=== PATIENT | male | born 1970 | race Two or more races ===

== ENCOUNTER 2018-06-10 23:34 | Emergency (ER) | payer MEDICARE, MEDICAID ==
[~2018-06-10] VITALS: Ht 172.7 cm; Wt 145.1 kg
[2018-06-10 23:49] VITALS: BP 147/99
[2018-06-11 01:00] LABS: Basophils # (auto) 0 uL; Basophils % (auto) 0.5 % (0.0-2.0); Eosinophils # (auto) 0.3 uL; Eosinophils % (auto) 2.9 % (0.0-7.0); Hematocrit 41.1 % (41.0-53.0); Hemoglobin 13.5 g/dL (13.5-17.5); Lymphocytes # (auto) 2.5 uL; Lymphocytes % (auto) 25.7 % (10.0-50.0); Mean Corpuscular Hemoglobin 28.6 pg (28.0-32.0); Mean Corpuscular Hgb Conc. 32.9 g/dL (32.0-36.0); Monocytes # (auto) 0.5 uL; Monocytes % (auto) 5.4 % (0.0-12.0); Neutrophils # (auto) 6.4 uL; Neutrophils % (auto) 65.5 % (37.0-80.0); Nucleated Red Blood Cells % 0.1 %; Platelet Count (auto) 315 10^3/uL (140-450); Red Blood Cells 4.72 10^6/uL (4.5-5.90); Red Cell Distribution Width 14.1 % (11.8-14.3); White Blood Cell 9.7 10^3/uL (4.4-10.8)
[2018-06-11 01:16] LABS: INR 0.98 (0.9-1.15); Partial Thromboplastin Time 27.5 sec (23.78-33.04); Prothrombin Time 10.5 sec (9.27-12.13)
[2018-06-11 01:17] LABS: Alanine Aminotransferase 19 U/L (16-61); Albumin 3.4 g/dL (3.4-5.0); Anion Gap 5 (5-15); Aspartate Aminotransferase 13 U/L (15-37); BUN/Creatinine Ratio 23.4; Blood Urea Nitrogen 18 mg/dL (7-18); Calcium 8.7 mg/dL (8.5-10.1); Carbon Dioxide 25 mmol/L (21-32); Chloride 106 mmol/L (98-107); GFR African American 138 mL/min; GFR Non-African American 114 mL/min; Glucose 175 mg/dL (74-106); Magnesium 2.1 mg/dL (1.6-2.6); Potassium 3.6 mmol/L (3.5-5.1); Sodium 136 mmol/L (136-145)
[2018-06-11 01:27] LABS: Alkaline Phosphatase 100 U/L (45-117); Bilirubin, Total 0.4 mg/dL (0.2-1.0); Total Protein 7.5 g/dL (6.4-8.2)
== END 2018-06-11 02:50 | disposition left against medical advice (07) ==
LOC: ER 23:35
DX: R07.89 Other chest pain (principal); Z53.21 Procedure and treatment not carried out due to patient leaving prior to being seen by health care provider
CPT/HCPCS: 36415; 71045; 80053; 83735; 83880; 84443; 84484; 85025; 85610; 85730; 93005

== ENCOUNTER → 2018-08-07 | Outpatient (CLI) | payer MEDICARE, MEDICAID ==
[2018-08-07 13:00] VITALS: BP 151/100
[2018-08-07 14:20] VITALS: BP 153/108
--- NOTE | 2018-08-07 14:20 | NUR ---
IN TO CLINIC FOR NEW ONSET CHF. REVIEWED LABS AND HISTORY. MORBIDLY OBESE, DIABETIC, WITH DIFFICULTY WITH AMBULATION R/T "PAIN IN FEET AND CRAMPS IN LEGS". CARDIODYNAMICS DONE AND REVIEWED. 6 MWT REQUIREMENTS REVIEWED AND 6MWT INITIATED. PT HAD SHORT AMBULATION TO JUST PAST NURSES STATION AND STATES "I CANT DO IT". PT DID AMBULATE IN BUILDING FROM WAITING AREA TO CHF CLINIC WITHOUT OBVIOUS DISTRESS PREVIOUS TO ATTEMPTED 6MWT. 6MWT DEFERRED FOR NOW. LABS DRAWN AND SENT. Discharge Instructions See e-MAR for any mediations given with this visit. Patient education given on disease process. Patient verbalized understanding. Previous labs reviewed. Patient discharged in stable condition with after care instructions TO HAVE ECHO NOW and follow up appointment FOR 08/08/18. Addendum: 08/08/18 at 0900 by Emma Johnson RN [place] RBS CHECK WAS 179MG/DL TAKEN AT CHF CLINIC 08/07/18.
[2018-08-07 16:01] LABS: Basophils # (auto) 0 uL; Basophils % (auto) 0.4 % (0.0-2.0); Eosinophils # (auto) 0.3 uL; Eosinophils % (auto) 3.7 % (0.0-7.0); Hemoglobin 13.7 g/dL (13.5-17.5); Lymphocytes % (auto) 22.7 % (10.0-50.0); Mean Corpuscular Hemoglobin 29.6 pg (28.0-32.0); Mean Corpuscular Hgb Conc. 34.2 g/dL (32.0-36.0); Mean Corpuscular Volume 86.6 fL (80.0-100.0); Monocytes # (auto) 0.5 uL; Monocytes % (auto) 5.8 % (0.0-12.0); Neutrophils # (auto) 6.1 uL; Neutrophils % (auto) 67.4 % (37.0-80.0); Nucleated Red Blood Cells % 0.3 %; Platelet Count (auto) 279 10^3/uL (140-450); Red Blood Cells 4.62 10^6/uL (4.5-5.90); Red Cell Distribution Width 15.1 % (11.8-14.3)
[2018-08-07 16:07] LABS: Calcium 8.6 mg/dL (8.5-10.1); Magnesium 2.3 mg/dL (1.6-2.6); Potassium 3.8 mmol/L (3.5-5.1)
== END | disposition home or self-care (01) ==
LOC: CHF HDHVI 12:54
PROVIDERS: ATTEND Internal Medicine Cardiovascular Disease
DX: I34.0 Nonrheumatic mitral (valve) insufficiency (principal); I11.0 Hypertensive heart disease with heart failure; I50.23 Acute on chronic systolic (congestive) heart failure; D64.9 Anemia, unspecified; E55.9 Vitamin D deficiency, unspecified; I42.0 Dilated cardiomyopathy; R06.00 Dyspnea, unspecified
CPT/HCPCS: 36415; 80048; 82306; 82962; 83735; 83880; 85025; 93306; 93701; 94618; G0463

== ENCOUNTER 2018-10-10 09:30 | Emergency (ER) | payer MEDICARE, MEDICAID ==
[~2018-10-10] VITALS: Ht 172.7 cm; Wt 145.1 kg
[~2018-10-10 09:30] MED LIST: ATOR40TA52 PO; CARV6.25 PO; FURO40TA4 PO; INSUINJ37 SC; METF-370 PO; METF-371 PO; POTA10TA51 PO; SACU1TAB PO; SPIR25TA8 PO
[2018-10-10] MEDS ORDERED: cloNIDine HCL 0.1 MG TAB PO ONE (09:45)
[2018-10-10 10:35] LABS: Basophils # (auto) 0.1 uL; Basophils % (auto) 0.6 % (0.0-2.0); Eosinophils # (auto) 0.5 uL; Eosinophils % (auto) 5.3 % (0.0-7.0); Hematocrit 38.7 % (41.0-53.0); Hemoglobin 12.9 g/dL (13.5-17.5); Lymphocytes # (auto) 1.6 uL; Mean Corpuscular Hemoglobin 29.3 pg (28.0-32.0); Mean Corpuscular Hgb Conc. 33.4 g/dL (32.0-36.0); Mean Corpuscular Volume 87.8 fL (80.0-100.0); Monocytes # (auto) 0.5 uL; Monocytes % (auto) 6.2 % (0.0-12.0); Neutrophils # (auto) 6.1 uL; Neutrophils % (auto) 69.9 % (37.0-80.0); Platelet Count (auto) 349 10^3/uL (140-450); Red Blood Cells 4.41 10^6/uL (4.5-5.90); Red Cell Distribution Width 13.9 % (11.8-14.3); White Blood Cell 8.7 10^3/uL (4.4-10.8)
[2018-10-10 10:50] LABS: Albumin 3.1 g/dL (3.4-5.0); Calcium 8.8 mg/dL (8.5-10.1); Potassium 4.2 mmol/L (3.5-5.1)
[2018-10-10 10:54] LABS: BUN/Creatinine Ratio 27.7; Bilirubin, Total 0.4 mg/dL (0.2-1.0); Total Protein 7.6 g/dL (6.4-8.2)
[2018-10-10 10:55] LABS: Urine WBC None Seen /hpf (0 - 3)
[2018-10-10 11:31] LABS: Urine Bacteria NONE SEEN /hpf (None Seen); Urine Blood Negative /uL (Negative); Urine Mucus FEW (None Seen); Urine Specific Gravity 1.023 (1.001-1.035)
[2018-10-10 11:50] VITALS: BP 159/99
== END 2018-10-10 12:12 ==
LOC: ER 09:30
DX: E11.65 Type 2 diabetes mellitus with hyperglycemia (principal); J44.9 Chronic obstructive pulmonary disease, unspecified; E78.5 Hyperlipidemia, unspecified; I25.2 Old myocardial infarction; I11.0 Hypertensive heart disease with heart failure; I50.9 Heart failure, unspecified; F17.210 Nicotine dependence, cigarettes, uncomplicated; Z02.89 Encounter for other administrative examinations; Z86.73 Personal history of transient ischemic attack (TIA), and cerebral infarction without residual deficits; Z95.810 Presence of automatic (implantable) cardiac defibrillator; Z79.4 Long term (current) use of insulin; Z79.899 Other long term (current) drug therapy
CPT/HCPCS: 36415; 71046; 80053; 81001; 82962; 84484; 85025; 93005

== ENCOUNTER → 2019-02-04 | Outpatient (CLI) | payer MEDICARE, MEDICAID ==
[2019-02-04 10:02] VITALS: BP 145/98
[2019-02-04 10:18] VITALS: BP 139/95
--- NOTE | 2019-02-04 10:18 | NUR ---
Pre-Op Discharge Summary: See e-MAR for any medications given for this visit. Pre-op orders received and carried out per MD of EKG, LABS and a prescription for chest xrays. Patient given a copy of EKG with instructions to go to [facility] out patient for further follow up care.
[2019-02-04 12:26] LABS: INR < 0.93 (0.9-1.15); Partial Thromboplastin Time 27.9 sec (23.64-32.05)
[2019-02-04 12:29] LABS: Basophils # (auto) 0.1 uL; Basophils % (auto) 0.5 % (0.0-2.0); Eosinophils # (auto) 0.3 uL; Eosinophils % (auto) 3.1 % (0.0-7.0); Hematocrit 44.2 % (41.0-53.0); Hemoglobin 14.9 g/dL (13.5-17.5); Lymphocytes # (auto) 2.1 uL; Lymphocytes % (auto) 22.3 % (10.0-50.0); Mean Corpuscular Hemoglobin 30.2 pg (28.0-32.0); Mean Corpuscular Hgb Conc. 33.7 g/dL (32.0-36.0); Mean Corpuscular Volume 89.4 fL (80.0-100.0); Monocytes # (auto) 0.5 uL; Monocytes % (auto) 5.5 % (0.0-12.0); Neutrophils # (auto) 6.4 uL; Neutrophils % (auto) 68.6 % (37.0-80.0); Nucleated Red Blood Cells % 0.2 %; Platelet Count (auto) 260 10^3/uL (140-450); Red Blood Cells 4.94 10^6/uL (4.5-5.90); White Blood Cell 9.4 10^3/uL (4.4-10.8)
[2019-02-04 14:04] LABS: Calcium 8.7 mg/dL (8.5-10.1); Potassium 3.9 mmol/L (3.5-5.1)
== END | disposition home or self-care (01) ==
LOC: Rad HDHVI 09:25
PROVIDERS: ATTEND Internal Medicine Cardiovascular Disease
DX: Z01.818 Encounter for other preprocedural examination (principal); D64.9 Anemia, unspecified; R79.1 Abnormal coagulation profile; I11.0 Hypertensive heart disease with heart failure; I50.9 Heart failure, unspecified; E11.9 Type 2 diabetes mellitus without complications; R94.31 Abnormal electrocardiogram [ECG] [EKG]
CPT/HCPCS: 36415; 80048; 85025; 85610; 85730; 93005; G0463

== ENCOUNTER 2019-05-10 13:49 | Inpatient (IN) | payer MEDICARE, MEDICAID ==
[~2019-05-10] VITALS: Ht 172.7 cm; Wt 76.6 kg
[2019-05-10 14:45] LABS: Basophils # (auto) 0 uL; Basophils % (auto) 0.5 % (0.0-2.0); Eosinophils # (auto) 0.2 uL; Eosinophils % (auto) 2.4 % (0.0-7.0); Hematocrit 45.9 % (41.0-53.0); Hemoglobin 15.6 g/dL (13.5-17.5); Lymphocytes # (auto) 1.9 uL; Lymphocytes % (auto) 21.4 % (10.0-50.0); Mean Corpuscular Hemoglobin 30.2 pg (28.0-32.0); Mean Corpuscular Hgb Conc. 33.9 g/dL (32.0-36.0); Mean Corpuscular Volume 89.2 fL (80.0-100.0); Monocytes # (auto) 0.5 uL; Monocytes % (auto) 5.8 % (0.0-12.0); Neutrophils # (auto) 6.3 uL; Neutrophils % (auto) 69.9 % (37.0-80.0); Nucleated Red Blood Cells % 0.1 %; Platelet Count (auto) 269 10^3/uL (140-450); Red Blood Cells 5.15 10^6/uL (4.5-5.90); Red Cell Distribution Width 13.9 % (11.8-14.3); White Blood Cell 9.1 10^3/uL (4.4-10.8)
[2019-05-10 14:53] LABS: Alanine Aminotransferase 18 U/L (16-61); Albumin 3.1 g/dL (3.4-5.0); Anion Gap 8 (5-15); Aspartate Aminotransferase 9 U/L (15-37); BUN/Creatinine Ratio 18.2; Blood Urea Nitrogen 20 mg/dL (7-18); Calcium 8.3 mg/dL (8.5-10.1); Carbon Dioxide 24 mmol/L (21-32); Chloride 102 mmol/L (98-107); GFR African American 91 mL/min; GFR Non-African American 75 mL/min; Glucose 381 mg/dL (74-106); Potassium 3.9 mmol/L (3.5-5.1); Sodium 134 mmol/L (136-145)
[2019-05-10] MEDS: SODIUM CHLORIDE 0.9% 1,000 ML IV ONE ×2 (14:55→15:42)
[2019-05-10 14:59] LABS: Alkaline Phosphatase 105 U/L (45-117); Bilirubin, Total 0.6 mg/dL (0.2-1.0); Total Protein 7.4 g/dL (6.4-8.2)
[2019-05-10] MEDS ORDERED: InsuLIN REG 1unit/0.01ml Soln (100units/ml) IV ONE (15:30)
[2019-05-10] MEDS ORDERED: FUROSEMIDE 40 MG/4 ML VIAL IV ONE (15:30)
[2019-05-10] MEDS ORDERED: PIPERACILLIN-TAZOB 3.375GM 100 ML IV ONE (15:45)
[2019-05-10 15:49] LABS: INR 0.97 (0.9-1.15); Partial Thromboplastin Time 27.1 sec (23.64-32.05)
[2019-05-10] MEDS ORDERED: IOHEXOL 300 MG/ML 100ML BOTTLE IJ ONE (15:51)
[2019-05-10 17:38] LABS: Urine WBC None Seen /hpf (0 - 3)
[2019-05-10 18:02] LABS: Urine Bacteria NONE SEEN /hpf (None Seen); Urine Blood Negative /uL (Negative); Urine Specific Gravity 1.035 (1.001-1.035)
[2019-05-10] MEDS ORDERED: PROMETHAZINE HCL 25 MG/ML 1ML IV PRN (19:30)
[2019-05-10] MEDS ORDERED: TEMAZEPAM 15 MG CAP PO PRN (19:30)
[2019-05-10] MEDS ORDERED: LACTULOSE 20Gm/30ML SOLN PO PRN ×2 (19:30)
[2019-05-10] MEDS ORDERED: NITROGLYCERIN 0.4 MG SL TAB SL PRN (19:30)
[2019-05-10] MEDS ORDERED: DEXTROSE (50%) 50ML SYRG IV PRN (19:30)
[2019-05-10] MEDS ORDERED: ALBUTEROL SULF 2.5 MG/0.5ML(0.5%) NEB SOLN NEB PRN (19:30)
[2019-05-10] MEDS ORDERED: traMADol HCL 50 MG TAB PO PRN (19:30)
[2019-05-10] MEDS ORDERED: MORPHINE SULF INJ 2 MG/ML SYRINGE 1ML IV PRN (19:30)
[2019-05-10] MEDS ORDERED: ACETAMINOPHEN 500 MG TAB PO PRN (19:30)
[2019-05-10] MEDS: SPIRONOLACTONE 25 MG TAB PO SCH (20:12)
[2019-05-10] MEDS: DOXYCYCLINE 100MG/250ML 250 ML IV SCH (20:23)
[2019-05-10 20:47] LABS: Alcohol, Urine < 3.0 mg/dL (0-5); Amphetamine Screen, Urine POSITIVE (NEGATIVE); Barbiturate Scree,Urine NEGATIVE (NEGATIVE); Benzodiazephine Screen, Urine NEGATIVE (NEGATIVE); Cannabinoid Screen, Urine NEGATIVE (NEGATIVE); Cocaine Screen, Urine NEGATIVE (NEGATIVE); Opiate Scree,Urine NEGATIVE (NEGATIVE); Phencyclidine Screen, Urine NEGATIVE (NEGATIVE)
[2019-05-10] MEDS: CLINDAMYCIN 600MG IV 50 ML IV SCH (22:00)
[2019-05-10] MEDS: SODIUM CHLOR 0.9% PF (SALINE LOCK) 10ML VIAL/SYR IV SCH (22:00)
[2019-05-10] MEDS: ACCU-CHEK COMFORT CURVE STRIP VI SCH (22:00)
[2019-05-10] MEDS: SACUBITRIL-VALSARTAN 24mg/26mg TAB PO SCH (22:00)
[2019-05-10] MEDS: CARVEDILOL 3.125 MG TAB PO SCH (22:30)
[2019-05-10] MEDS: ATORVASTATIN 20 MG TAB PO SCH (22:31)
[2019-05-10] MEDS: INSULIN LANTUS (GLARGINE) 1 /0.01ml (100units/ml) SC SCH (22:31)
[2019-05-10] MEDS: InsuLIN REG 1unit/0.01ml Soln (100units/ml) SC SCH (22:31)
[2019-05-10] MEDS ORDERED: INFLUENZA QUAD 2019-2020 0.5ml SYRG IM ONE (23:00)
--- NOTE | 2019-05-10 23:00 | NUR ---
OPENING NOTE RECEIVED PATIENT FROM ER. NO REPORT RECEIVED. PATIENT AMBULATED TO BEDSIDE WITH LITTLE DISTRESS. PATIENT SHOWING NO SIGN OF DISTRESS AT THIS TIME, NO SHORTNESS OF BREATH, AND PATIENT DENIES ANY PAIN AT THIS TIME. PATIENT EDUCATED ON PLAN OF CARE FOR THE NIGHT AND PATIENT VERBALIZED UNDERSTANDING. BED LOWERED, CALL LIGHT WITHIN REACH, AND PATIENT WILL BE ROUNDED ON EVERY HOUR AND NEEDED.
[2019-05-10] MEDS: ALBUTEROL SULF 2.5 MG/0.5ML(0.5%) NEB SOLN NEB SCH (23:28)
[2019-05-10] MEDS: IPRATROPIUM BROM 0.5 MG/2.5ML INH SOL NEB SCH (23:28)
[2019-05-11] VITALS (7 sets, daily range): BP systolic 114–148; BP diastolic 58–91
[2019-05-11] MEDS: CLINDAMYCIN 600MG IV 50 ML IV SCH ×3 (05:19→23:15)
[2019-05-11] MEDS: SPIRONOLACTONE 25 MG TAB PO SCH ×2 (05:19→18:02)
[2019-05-11] MEDS: SODIUM CHLOR 0.9% PF (SALINE LOCK) 10ML VIAL/SYR IV SCH ×3 (05:19→22:37)
[2019-05-11] MEDS: ALBUTEROL SULF 2.5 MG/0.5ML(0.5%) NEB SOLN NEB SCH ×3 (06:31→20:04)
[2019-05-11] MEDS: IPRATROPIUM BROM 0.5 MG/2.5ML INH SOL NEB SCH ×3 (06:31→20:04)
[2019-05-11] MEDS: ACCU-CHEK COMFORT CURVE STRIP VI SCH ×4 (06:42→22:37)
[2019-05-11] MEDS: InsuLIN REG 1unit/0.01ml Soln (100units/ml) SC SCH ×4 (06:43→22:38)
[2019-05-11] MEDS: DOXYCYCLINE 100MG/250ML 250 ML IV SCH ×2 (09:39→20:49)
[2019-05-11] MEDS: FUROSEMIDE 40 MG/4 ML VIAL IV SCH (10:03)
[2019-05-11] MEDS: PANTOPRAZOLE 40 MG TAB PO SCH (10:04)
[2019-05-11] MEDS: SACUBITRIL-VALSARTAN 24mg/26mg TAB PO SCH ×2 (10:05→22:35)
[2019-05-11] MEDS: ASPirin 81 mg TAB PO SCH (10:05)
[2019-05-11] MEDS: CARVEDILOL 3.125 MG TAB PO SCH ×2 (10:05→22:37)
[2019-05-11] MEDS: POTASSIUM CHL 20 Meq TABLET PO SCH (10:06)
[2019-05-11] MEDS: ENOXAPARIN SOD 40 MG/0.4 ML SYRINGE SC SCH (10:07)
--- NOTE | 2019-05-11 11:38 | NUR ---
WOUND CARE NOTE: Wound care in to see patient per wound care request regarding " Rt second toe ulceration" that are noted present on admission. Bedside nurse took photograph of patient's wound upon admission for reference. Patient is 49 y/o male with admitting diagnosis of COPD, CHF, Rt Second toe osteomyelitis. Patient with history of anxiety, htn, DM, CHF, High Lipids. Patient is resting in bed in Rm. 298A. Patient is awake,alert and oriented. He's ambulatory and self turn and reposition. His Gerry score is 18. US of BLE and to CT done (see result). Patient seen by Dr. King and he's at [facility] at this time. He ordered no dressing, just ordered leave open to air. No further wound care monitoring needed at this time. Addendum: 05/11/19 at 1705 by Melida Messer RN Amended: Links added.
--- NOTE | 2019-05-11 19:50 | NUR ---
Opening Shift Note Assumed care of patient, awake and alert. No S/S of distress/SOB or pain. Instructed on POC and to call for assist PRN. Bed in lowest locked position, call light within reach, side rails up x2. Will continue to monitor for changes Q1hr and PRN.
[2019-05-11] MEDS: ATORVASTATIN 20 MG TAB PO SCH (22:36)
[2019-05-11] MEDS: INSULIN LANTUS (GLARGINE) 1 /0.01ml (100units/ml) SC SCH (22:39)
[2019-05-12] MEDS: IPRATROPIUM BROM 0.5 MG/2.5ML INH SOL NEB SCH ×4 (00:13→19:37)
[2019-05-12] MEDS: ALBUTEROL SULF 2.5 MG/0.5ML(0.5%) NEB SOLN NEB SCH ×4 (00:13→19:37)
[2019-05-12 05:59] VITALS: BP 107/40
[2019-05-12] MEDS: SODIUM CHLOR 0.9% PF (SALINE LOCK) 10ML VIAL/SYR IV SCH ×3 (06:30→22:37)
[2019-05-12] MEDS: CLINDAMYCIN 600MG IV 50 ML IV SCH ×3 (06:30→22:37)
[2019-05-12] MEDS: ACCU-CHEK COMFORT CURVE STRIP VI SCH ×4 (06:37→22:40)
[2019-05-12] MEDS: InsuLIN REG 1unit/0.01ml Soln (100units/ml) SC SCH ×4 (06:37→22:40)
[2019-05-12] MEDS: SPIRONOLACTONE 25 MG TAB PO SCH ×2 (06:38→17:35)
[2019-05-12] MEDS: DOXYCYCLINE 100MG/250ML 250 ML IV SCH ×2 (08:55→20:14)
[2019-05-12] MEDS: ASPirin 81 mg TAB PO SCH (11:18)
[2019-05-12] MEDS: SACUBITRIL-VALSARTAN 24mg/26mg TAB PO SCH ×2 (11:18→22:39)
[2019-05-12] MEDS: POTASSIUM CHL 20 Meq TABLET PO SCH (11:18)
[2019-05-12] MEDS: CARVEDILOL 3.125 MG TAB PO SCH ×2 (11:19→22:38)
[2019-05-12] MEDS: HYDROcodone-ACET 5/325MG TAB PO PRN ×2 (11:20→20:13)
[2019-05-12] MEDS: FUROSEMIDE 40 MG/4 ML VIAL IV SCH (11:20)
[2019-05-12] MEDS: ENOXAPARIN SOD 40 MG/0.4 ML SYRINGE SC SCH (11:20)
[2019-05-12] MEDS: PANTOPRAZOLE 40 MG TAB PO SCH (11:21)
[2019-05-12 13:00] VITALS: BP 105/58
--- NOTE | 2019-05-12 19:30 | NUR ---
Opening Shift Note Assumed care of patient, awake and alert. No S/S of distress noted, patient reports pain 04/11, see eMAR. Instructed on POC and to call for assist PRN. Bed in lowest locked position, call light within reach, side rails up x2. Will continue to monitor for changes Q1hr and PRN. Signed: 05/13/19 at 0028 by JAVED LOYOLA <Co-Signature Required> Co-Signed: 05/13/19 at 0028 by HUBERT ROBERSON OCA, RN
[2019-05-12 22:00] VITALS: BP 117/74
[2019-05-12] MEDS: ATORVASTATIN 20 MG TAB PO SCH (22:39)
[2019-05-12] MEDS: INSULIN LANTUS (GLARGINE) 1 /0.01ml (100units/ml) SC SCH (22:40)
[2019-05-13] MEDS: ALBUTEROL SULF 2.5 MG/0.5ML(0.5%) NEB SOLN NEB SCH ×4 (00:24→19:35)
[2019-05-13] MEDS: IPRATROPIUM BROM 0.5 MG/2.5ML INH SOL NEB SCH ×4 (00:24→19:35)
[2019-05-13 05:51] VITALS: BP 124/58
[2019-05-13] MEDS: SPIRONOLACTONE 25 MG TAB PO SCH ×2 (06:02→16:37)
[2019-05-13] MEDS: HYDROcodone-ACET 5/325MG TAB PO PRN ×3 (06:03→22:39)
[2019-05-13] MEDS: CLINDAMYCIN 600MG IV 50 ML IV SCH (06:04)
[2019-05-13] MEDS: SODIUM CHLOR 0.9% PF (SALINE LOCK) 10ML VIAL/SYR IV SCH ×3 (06:11→22:16)
[2019-05-13] MEDS: ACCU-CHEK COMFORT CURVE STRIP VI SCH ×4 (06:42→22:20)
[2019-05-13] MEDS: InsuLIN REG 1unit/0.01ml Soln (100units/ml) SC SCH ×4 (06:42→22:19)
--- NOTE | 2019-05-13 08:00 | NUR ---
Morning note patient resting in bed with even and unlabored respirations, no distress noted. Instructed patient on POC, fall precautions and to call for assistance as needed. Patient verbalized understanding. Fall precautions in place with bed in lowest locked position with call light within reach. Will continue to monitor q1hr & PRN.
--- NOTE | 2019-05-13 08:26 | NUR ---
Patient off unit to bone scan per MD order via wheelchair. Respirations even and unlabored, no distress noted.
[2019-05-13 08:45] VITALS: BP 92/54
[2019-05-13] MEDS: ENOXAPARIN SOD 40 MG/0.4 ML SYRINGE SC SCH (10:19)
[2019-05-13] MEDS: ASPirin 81 mg TAB PO SCH (10:20)
[2019-05-13] MEDS: PANTOPRAZOLE 40 MG TAB PO SCH (10:20)
[2019-05-13] MEDS: POTASSIUM CHL 20 Meq TABLET PO SCH (10:20)
[2019-05-13] MEDS: CARVEDILOL 3.125 MG TAB PO SCH ×2 (10:24→22:18)
--- NOTE | 2019-05-13 10:25 | NUR ---
IV discontinued after patient returned to unit Patient has c/o IV is tender to tough. IV site has mild redness noted. IV discontinued with clean technique, catheter intact. Dressing applied. Patient tolerated well, no trauma to site.
--- NOTE | 2019-05-13 10:30 | NUR ---
Attempted IV access Access not achieved. Patient tolerated well, no trauma to site.
[2019-05-13] MEDS: SACUBITRIL-VALSARTAN 24mg/26mg TAB PO SCH ×2 (10:33→22:18)
--- NOTE | 2019-05-13 10:43 | NUR ---
Patient off unit to second part of bone scan per MD order via wheelchair. Respirations even and unlabored, no distress noted.
[2019-05-13] MEDS ORDERED: VANCOMYCIN PER PHARMACY 0 MG IV SCH (10:45)
--- NOTE | 2019-05-13 11:02 | NUR ---
Patient returned to room via wheelchair respirations even and unlabored, no distress noted.
[2019-05-13 11:31] LABS: Basophils # (auto) 0.1 uL; Basophils % (auto) 0.7 % (0.0-2.0); Eosinophils # (auto) 0.4 uL; Hematocrit 48.7 % (41.0-53.0); Hemoglobin 16.4 g/dL (13.5-17.5); Lymphocytes # (auto) 2.4 uL; Lymphocytes % (auto) 24.4 % (10.0-50.0); Mean Corpuscular Hemoglobin 29.9 pg (28.0-32.0); Mean Corpuscular Hgb Conc. 33.7 g/dL (32.0-36.0); Mean Corpuscular Volume 88.8 fL (80.0-100.0); Monocytes # (auto) 0.6 uL; Monocytes % (auto) 6.4 % (0.0-12.0); Neutrophils # (auto) 6.3 uL; Neutrophils % (auto) 64.5 % (37.0-80.0); Nucleated Red Blood Cells % 0.2 %; Platelet Count (auto) 289 10^3/uL (140-450); Red Blood Cells 5.48 10^6/uL (4.5-5.90); Red Cell Distribution Width 13.7 % (11.8-14.3); White Blood Cell 9.8 10^3/uL (4.4-10.8)
[2019-05-13 11:57] LABS: Calcium 8.6 mg/dL (8.5-10.1); Potassium 4.6 mmol/L (3.5-5.1)
[2019-05-13] MEDS ORDERED: PIPERACILLIN-TAZO 4.5GM 100 ML IV SCH (12:00)
[2019-05-13] MEDS ORDERED: VANCOMYCIN 1,250 MG in D5W 5% 250 ML IV ONE (12:00)
[2019-05-13] MEDS: FUROSEMIDE 40 MG/4 ML VIAL IV SCH (12:05)
[2019-05-13 14:11] VITALS: BP 127/71
--- NOTE | 2019-05-13 14:28 | NUR ---
Patient notified this RN that he took a shower Patient stated "I just had to take a shower. I'm sorry. I held my arm out of the shower curtain and I took that box off." Educated patient on fall and safety precautions and the need to obtain an order from the MD prior to taking a shower. Patient verbalized understanding. Patient stated "I won't do it again." Respirations even and unlabored respirations, no distress noted.
--- NOTE | 2019-05-13 15:49 | NUR ---
Received Social Service consult for pt as he is homeless. Pt is alert and oriented. His fiance is with him and he states if she cannot go with him he will not go. The pt states that they were late in paying their rent and were evicted. They do not have any relative that they can go and stay with temporarily. Pt states they have been staying in [facility]. The have provided them with clothing, food Although they get food stamps. The are also give transportation to their physicians. They did have a care but it broke down and they do not have the finances to fix it. The pt does not have an income. The finance states she is going to apply for SSI as she has epilepsy. However none of this has been done. The pt states they have tried the [facility] but they violated the rules and were asked to leave. Their belongings are in storage are this time. The pt states they will return back to [facility] on discharge.
[2019-05-13 16:48] VITALS: BP 127/69
[2019-05-13] MEDS: PIPERACILLIN-TAZO 4.5GM 100 ML IV SCH (17:10)
--- NOTE | 2019-05-13 18:46 | NUR ---
Closing note patient resting in bed with even and unlabored respirations, no distress noted. Fall precautions in place with call light within reach.
--- NOTE | 2019-05-13 19:30 | NUR ---
Care endorsed to DONITA Carrion.
[2019-05-13] MEDS: VANCOMYCIN 1,500 MG in D5W 5% 250 ML IV SCH (22:17)
[2019-05-13] MEDS: ATORVASTATIN 20 MG TAB PO SCH (22:18)
[2019-05-13] MEDS: INSULIN LANTUS (GLARGINE) 1 /0.01ml (100units/ml) SC SCH (22:19)
[2019-05-13 23:13] VITALS: BP 149/61
[2019-05-14] MEDS: IPRATROPIUM BROM 0.5 MG/2.5ML INH SOL NEB SCH ×4 (00:31→19:00)
[2019-05-14] MEDS: ALBUTEROL SULF 2.5 MG/0.5ML(0.5%) NEB SOLN NEB SCH ×4 (00:31→19:00)
--- NOTE | 2019-05-14 00:31 | NUR ---
Respiratory note: PT IS REFUSING SCHED MED NEB AT THIS TIME. TRIED TO WAKE UP PT FOR TX, BUT PATIENT SAID HE DOES NOT WANT TO TAKE IT AND WILL TAKE IT IN THE MORNING. WILL CONTINUE TO MONITOR.
[2019-05-14] MEDS: PIPERACILLIN-TAZO 4.5GM 100 ML IV SCH ×4 (00:36→17:38)
[2019-05-14 04:03] VITALS: BP 149/61
[2019-05-14 05:19] VITALS: BP 94/47
[2019-05-14] MEDS: SODIUM CHLOR 0.9% PF (SALINE LOCK) 10ML VIAL/SYR IV SCH ×3 (06:06→21:52)
[2019-05-14] MEDS: INSULIN LISPRO (HUMAN) 100 UNITS/ML ML SC SCH ×3 (06:07→17:36)
[2019-05-14] MEDS: SPIRONOLACTONE 25 MG TAB PO SCH ×2 (06:07→17:38)
[2019-05-14] MEDS: ACCU-CHEK COMFORT CURVE STRIP VI SCH ×4 (06:08→21:55)
[2019-05-14] MEDS: InsuLIN REG 1unit/0.01ml Soln (100units/ml) SC SCH ×4 (06:08→21:54)
--- NOTE | 2019-05-14 08:00 | NUR ---
Morning note patient resting in bed with even and unlabored respirations, no distress noted. Instructed patient on POC, fall precautions and to call for assistance. Patient verbalized understanding. Fall precautions in place with bed in lowest locked position and call light within reach. Will continue to monitor q1hr & PRN.
[2019-05-14 09:00] VITALS: BP 124/74
--- NOTE | 2019-05-14 09:06 | NUR ---
RE: podiatry Spoke with Dr. King. Orders received and read back to verify.
[2019-05-14] MEDS: ENOXAPARIN SOD 40 MG/0.4 ML SYRINGE SC SCH (09:40)
[2019-05-14] MEDS: ASPirin 81 mg TAB PO SCH (09:41)
[2019-05-14] MEDS: SACUBITRIL-VALSARTAN 24mg/26mg TAB PO SCH ×2 (09:41→21:53)
[2019-05-14] MEDS: PANTOPRAZOLE 40 MG TAB PO SCH (09:41)
[2019-05-14] MEDS: CARVEDILOL 3.125 MG TAB PO SCH ×2 (09:41→21:53)
[2019-05-14] MEDS: VANCOMYCIN 1,500 MG in D5W 5% 250 ML IV SCH ×2 (09:42→21:52)
[2019-05-14 13:00] VITALS: BP 131/73
[2019-05-14] MEDS: HYDROcodone-ACET 5/325MG TAB PO PRN ×2 (13:32→19:52)
--- NOTE | 2019-05-14 14:08 | NUR ---
Midline Placement: Patient educated on need for midline placement. All risks and benefits explained and all questions and concerns addresses prior to procedure. 18g/10cm midline inserted via left brachial vein using Ultrasound. Sterile technique utilized. Blood return obtained from lumen and flushed easily with NS using proper technique. Midline secured with saline lock; biodisc and occlusive dressing applied. Primary RN notified. Midline lot #[id number]
--- NOTE | 2019-05-14 14:45 | NUR ---
Nutrition Assessment Notes please see attached link for complete assessment Est. Needs ABW 107 [id number] kcal (17-20 kcal/kgBW), 107-117 gms pro (1.0-1.1 gms/kgBW). Will continue to monitor pertinent labs and reassess nutrient need prn Addendum: 05/14/19 at [address] Amended: Links added.
--- NOTE | 2019-05-14 14:49 | NUR ---
assessment Patient is a 49 year old male who is alert and oriented. Patients cognitive abilities are intact. Prior to admission patient was homeless and functioned independently. Patient informed me he is able to care for his own ADLs. Per patient he has been homeless since 05/02/19 when he states he was 35.00 short on his rent and asked to leave. Patient informed me he gets 955.00 per month. Patient does not want to use 750.00 for room and board. Patient informed me he was paying 267.00 and thats what he wants to pay again. I informed patient I cannot get his a room and board for 267.00 per month. Patient also informed me he will not go to room and board without his fiance. Marcela dowling fiance is at bedside. Per Marcela she has no income and cannot help patient pay for housing. I informed patient he may need SNF for IV ABX. Patient has agreed. I informed patient he has a right to speak to a vp digital marketing social media and crm regarding all care. I informed patient he has a right to participate in any and all discharge planning. Patient does not have a POA and advanced directive. I have offered patient information on POA and advanced directives. I informed the patient the advantages and benefits of having an Advanced Directive. Patient verbalized understanding and agreed to discharge plan. Addendum: 05/14/19 at 1456 by Chula CONRAD Amended: Links added.
--- NOTE | 2019-05-14 16:42 | NUR ---
Regarding pt's and social work supervisor's conversation a homeless form was signed and placed in the chart.
[2019-05-14 17:00] VITALS: BP 109/68
--- NOTE | 2019-05-14 19:26 | NUR ---
Closing note patient resting in bed with even and unlabored respirations, no distress noted. Fall precautions in place with call light within reach.
--- NOTE | 2019-05-14 19:28 | NUR ---
Care endorsed to DONITA Carrion.
[2019-05-14] MEDS: ATORVASTATIN 20 MG TAB PO SCH (21:53)
[2019-05-14] MEDS: INSULIN LANTUS (GLARGINE) 1 /0.01ml (100units/ml) SC SCH (21:54)
[2019-05-14 22:00] VITALS: BP 94/62
[2019-05-15] MEDS: PIPERACILLIN-TAZO 4.5GM 100 ML IV SCH ×4 (00:09→18:38)
[2019-05-15] MEDS: IPRATROPIUM BROM 0.5 MG/2.5ML INH SOL NEB SCH ×4 (00:47→19:05)
[2019-05-15] MEDS: ALBUTEROL SULF 2.5 MG/0.5ML(0.5%) NEB SOLN NEB SCH ×4 (00:47→19:05)
[2019-05-15 05:21] LABS: Basophils # (auto) 0.1 uL; Basophils % (auto) 0.7 % (0.0-2.0); Eosinophils # (auto) 0.3 uL; Eosinophils % (auto) 3.6 % (0.0-7.0); Hemoglobin 14.8 g/dL (13.5-17.5); Lymphocytes # (auto) 2.1 uL; Lymphocytes % (auto) 25.3 % (10.0-50.0); Mean Corpuscular Hemoglobin 30.3 pg (28.0-32.0); Mean Corpuscular Hgb Conc. 33.8 g/dL (32.0-36.0); Mean Corpuscular Volume 89.6 fL (80.0-100.0); Monocytes # (auto) 0.6 uL; Monocytes % (auto) 7.2 % (0.0-12.0); Neutrophils # (auto) 5.2 uL; Neutrophils % (auto) 63.2 % (37.0-80.0); Platelet Count (auto) 243 10^3/uL (140-450); Red Blood Cells 4.91 10^6/uL (4.5-5.90); Red Cell Distribution Width 13.7 % (11.8-14.3); White Blood Cell 8.3 10^3/uL (4.4-10.8)
[2019-05-15 05:39] LABS: INR 1.02 (0.9-1.15)
[2019-05-15 05:46] LABS: BUN/Creatinine Ratio 24.3; Calcium 8.2 mg/dL (8.5-10.1); Magnesium 2.3 mg/dL (1.6-2.6); Potassium 4.5 mmol/L (3.5-5.1)
[2019-05-15 06:02] VITALS: BP 106/72
[2019-05-15] MEDS: SODIUM CHLOR 0.9% PF (SALINE LOCK) 10ML VIAL/SYR IV SCH ×2 (06:35→21:51)
[2019-05-15] MEDS: SPIRONOLACTONE 25 MG TAB PO SCH ×2 (06:36→17:23)
[2019-05-15] MEDS: INSULIN LISPRO (HUMAN) 100 UNITS/ML ML SC SCH ×3 (06:36→17:22)
[2019-05-15] MEDS: InsuLIN REG 1unit/0.01ml Soln (100units/ml) SC SCH ×4 (06:36→22:36)
[2019-05-15] MEDS: ACCU-CHEK COMFORT CURVE STRIP VI SCH ×4 (06:37→22:24)
--- NOTE | 2019-05-15 07:30 | NUR ---
Opening Shift Note Assumed care of patient, awake and alert. No S/S of distress/SOB or pain. Bed is in lowest position with 2x side rails up for safety. Call light is within reach. Instructed on POC and to call for assist PRN, will continue to monitor for changes Q1hr and PRN.
[2019-05-15 08:00] VITALS: BP 101/65
[2019-05-15 08:26] VITALS: BP 101/65
[2019-05-15] MEDS: VANCOMYCIN 1,500 MG in D5W 5% 250 ML IV SCH (09:46)
[2019-05-15] MEDS: ASPirin 81 mg TAB PO SCH (09:47)
[2019-05-15] MEDS: PANTOPRAZOLE 40 MG TAB PO SCH (09:47)
[2019-05-15] MEDS: CARVEDILOL 3.125 MG TAB PO SCH ×2 (09:47→22:37)
[2019-05-15] MEDS: ATORVASTATIN 20 MG TAB PO SCH (09:51)
--- NOTE | 2019-05-15 09:52 | NUR ---
D/C Planning Per consult for SNF placement for IV abx vanco per pharm for 6 week zosyn 4.5gm IV q8hrs for 6 week and wound care. Pt brendan Doty was at bedside when information and choice letter was given to patient at bedside. Pt had no preference of providers. Pt verbalize understanding. Contact and faxed medical records to [facility] and [facility]. Per Leslye from [facility] patient has been accepted to room [address] MD Dr. Castanon. Informed Pt at bedside with accepting facility. Informed DONITA Bills. Will arrange transportation upon discharge day. Addendum: 05/15/19 at 1000 by BLADIMIR CONRAD Amended: Links added. Addendum: 05/15/19 at 1031 by BLADIMIR CONRAD correction Informed DONITA Keller
[2019-05-15] MEDS: ENOXAPARIN SOD 40 MG/0.4 ML SYRINGE SC SCH (09:54)
[2019-05-15] MEDS: SACUBITRIL-VALSARTAN 24mg/26mg TAB PO SCH ×2 (10:04→22:36)
[2019-05-15 12:37] VITALS: BP 109/66
--- NOTE | 2019-05-15 13:30 | NUR ---
Pre op Patient taken to pre-op via bed for scheduled procedure.
[2019-05-15] MEDS ORDERED: ceFAZolin 1GM/50ML 50 ML IV ONE (13:34)
[2019-05-15] MEDS ORDERED: ceFAZolin 1GM VL ONE (14:34)
[2019-05-15] MEDS ORDERED: ROPIVACAINE 0.5% (5MG/ML) 20ML AMPULE IJ ONE (14:34)
[2019-05-15] MEDS ORDERED: fentaNYL CITRATE 100 MCG/2 ML VL ONE (14:56)
[2019-05-15] MEDS ORDERED: MIDAZOLAM HCL 1MG/1ML-2 ML VIAL ONE (14:56)
[2019-05-15] MEDS ORDERED: MIDAZOLAM HCL 1MG/1ML-2 ML VIAL IV PRN (15:00)
[2019-05-15] MEDS ORDERED: ePHEDrine SULFATE 50 MG/ML AMP IV PRN (15:00)
[2019-05-15] MEDS ORDERED: MORPHINE SULFATE 4 MG/ML SYR/VIAL IV PRN (15:00)
[2019-05-15] MEDS ORDERED: LABETALOL HCL 5 MG/ML 4ML SYRINGE IV PRN (15:00)
[2019-05-15] MEDS ORDERED: ONDANSETRON HCL 4 MG/2 ML VIAL IV PRN (15:00)
[2019-05-15] MEDS ORDERED: ACCU-CHEK COMFORT CURVE STRIP VI ONE (15:00)
[2019-05-15] MEDS ORDERED: PROPOFOL 10 MG/ML 20 ML IV ONE (15:11)
--- NOTE | 2019-05-15 16:00 | NUR ---
PT BACK FROM OR, RT FOOT DRESSING CLEAN AND DRY, CALL LIGHT WITHIN REACH, FAMILY AT BED SIDE, NO PAIN REPORTED AT THIS TIME. V/S 99/66, HR 83, RR 18, WILL CONTINUE TO MONITOR PT.
[2019-05-15 16:58] VITALS: BP 99/66
[2019-05-15] MEDS: VANCOMYCIN 1,250 MG in D5W 5% 250 ML IV SCH (18:39)
--- NOTE | 2019-05-15 19:30 | NUR ---
Opening Shift Note Assumed care of patient, awake and alert. No S/S of distress/SOB. Instructed on POC and to call for assist PRN, will continue to monitor for changes Q1hr and PRN.
[2019-05-15 21:00] VITALS: BP 115/67
[2019-05-15] MEDS: INSULIN LANTUS (GLARGINE) 1 /0.01ml (100units/ml) SC SCH (22:36)
[2019-05-15] MEDS: HYDROcodone-ACET 5/325MG TAB PO PRN (22:37)
--- NOTE | 2019-05-16 00:13 | NUR ---
Respiratory note: PT REFUSED SCHED MED NEB. PT STATES HE IS TIRED AND WANTS TO REST. PT SHOWS NO S/S OF SOB OR DISTRESS. WILL CONTINUE TO MONITOR.
[2019-05-16] MEDS: PIPERACILLIN-TAZO 4.5GM 100 ML IV SCH ×4 (00:24→17:33)
[2019-05-16] MEDS: VANCOMYCIN 1,250 MG in D5W 5% 250 ML IV SCH ×3 (04:29→18:20)
[2019-05-16 04:30] VITALS: BP 102/62
[2019-05-16] MEDS: HYDROcodone-ACET 5/325MG TAB PO PRN ×3 (04:30→17:31)
[2019-05-16] MEDS: SODIUM CHLOR 0.9% PF (SALINE LOCK) 10ML VIAL/SYR IV SCH ×3 (06:19→22:29)
[2019-05-16] MEDS: ACCU-CHEK COMFORT CURVE STRIP VI SCH ×4 (06:19→22:17)
[2019-05-16] MEDS: SPIRONOLACTONE 25 MG TAB PO SCH ×2 (06:19→18:23)
[2019-05-16] MEDS: INSULIN LISPRO (HUMAN) 100 UNITS/ML ML SC SCH ×3 (06:38→17:32)
[2019-05-16] MEDS: InsuLIN REG 1unit/0.01ml Soln (100units/ml) SC SCH ×4 (06:39→22:29)
[2019-05-16] MEDS: ALBUTEROL SULF 2.5 MG/0.5ML(0.5%) NEB SOLN NEB SCH ×5 (06:55→23:51)
[2019-05-16] MEDS: IPRATROPIUM BROM 0.5 MG/2.5ML INH SOL NEB SCH ×5 (06:55→23:50)
[2019-05-16 07:45] LABS: BUN/Creatinine Ratio 21.1; Calcium 8.1 mg/dL (8.5-10.1); Potassium 4.7 mmol/L (3.5-5.1)
[2019-05-16 08:39] VITALS: BP 93/53
--- NOTE | 2019-05-16 08:51 | NUR ---
Opening Shift Note Assumed care of patient, awake and alert. No S/S of distress/SOB or pain. Skin is warm and dry to touch, no s/s of hyperglycemia or hypoglycemia noted. Instructed on POC and to call for assist PRN, will continue to monitor for changes Q1hr and PRN.
[2019-05-16] MEDS: ENOXAPARIN SOD 40 MG/0.4 ML SYRINGE SC SCH (09:42)
[2019-05-16] MEDS: PANTOPRAZOLE 40 MG TAB PO SCH (09:43)
[2019-05-16] MEDS: SACUBITRIL-VALSARTAN 24mg/26mg TAB PO SCH ×2 (09:43→22:27)
[2019-05-16] MEDS: ASPirin 81 mg TAB PO SCH (09:43)
[2019-05-16] MEDS: CARVEDILOL 3.125 MG TAB PO SCH ×2 (09:43→22:28)
[2019-05-16 12:34] VITALS: BP 95/49
[2019-05-16 16:38] VITALS: BP 117/70
--- NOTE | 2019-05-16 19:30 | NUR ---
Opening Shift Note Assumed care of patient, awake and alert. No S/S of distress/SOB. Family at bedside. Instructed on POC and to call for assist PRN, will continue to monitor for changes Q1hr and PRN.
[2019-05-16 22:26] VITALS: BP 115/80
[2019-05-16] MEDS: ATORVASTATIN 20 MG TAB PO SCH (22:28)
[2019-05-16] MEDS: INSULIN LANTUS (GLARGINE) 1 /0.01ml (100units/ml) SC SCH (22:29)
[2019-05-17] MEDS: PIPERACILLIN-TAZO 4.5GM 100 ML IV SCH ×4 (00:09→18:24)
[2019-05-17 00:20] VITALS: BP 109/79
[2019-05-17] MEDS: VANCOMYCIN 1,250 MG in D5W 5% 250 ML IV SCH ×3 (02:49→17:48)
[2019-05-17 05:30] VITALS: BP 143/70
[2019-05-17] MEDS: SODIUM CHLOR 0.9% PF (SALINE LOCK) 10ML VIAL/SYR IV SCH ×3 (05:48→22:00)
[2019-05-17] MEDS: ACCU-CHEK COMFORT CURVE STRIP VI SCH ×4 (06:15→22:00)
[2019-05-17] MEDS: InsuLIN REG 1unit/0.01ml Soln (100units/ml) SC SCH ×4 (06:26→22:00)
[2019-05-17] MEDS: INSULIN LISPRO (HUMAN) 100 UNITS/ML ML SC SCH ×3 (06:26→17:47)
[2019-05-17] MEDS: SPIRONOLACTONE 25 MG TAB PO SCH ×2 (06:26→18:24)
[2019-05-17] MEDS: HYDROcodone-ACET 5/325MG TAB PO PRN ×4 (06:27→18:24)
[2019-05-17] MEDS: IPRATROPIUM BROM 0.5 MG/2.5ML INH SOL NEB SCH ×3 (07:49→18:58)
[2019-05-17] MEDS: ALBUTEROL SULF 2.5 MG/0.5ML(0.5%) NEB SOLN NEB SCH ×3 (07:49→18:58)
--- NOTE | 2019-05-17 08:28 | NUR ---
Dr. Sepulveda paged regarding discharge planning to SNF, awaiting to call back.
--- NOTE | 2019-05-17 09:01 | NUR ---
Opening Shift Note Assumed care of patient, awake and alert. No S/S of distress/SOB or pain. Instructed on POC and to call for assist PRN, will continue to monitor for changes Q1hr and PRN.
[2019-05-17] MEDS: ENOXAPARIN SOD 40 MG/0.4 ML SYRINGE SC SCH (09:55)
[2019-05-17] MEDS: PANTOPRAZOLE 40 MG TAB PO SCH (09:55)
[2019-05-17] MEDS: CARVEDILOL 3.125 MG TAB PO SCH ×2 (09:55→22:00)
[2019-05-17] MEDS: SACUBITRIL-VALSARTAN 24mg/26mg TAB PO SCH ×2 (09:55→22:00)
[2019-05-17] MEDS: ASPirin 81 mg TAB PO SCH (09:55)
--- NOTE | 2019-05-17 12:48 | NUR ---
Nutrition Follow-up Notes Wt.: 148.2 kg Pt`s sleeping with no family by bedside. per records pt s/p sx for amputation on toe on 05/15. pt with no distress noted per nursing. pt is currently on CCHO 60 gm/meal diet with adequate PO of 100% x 4 per RN doc Est. Needs ABW 107 [id number] kcal (17-20 kcal/kgBW), 107-117 gms pro (1.0-1.1 gms/kgBW). Will continue to monitor pertinent labs and reassess nutrient need prn Labs: GLU 216 H, BUN 20 H, CA 8.1 L. Skin: Gerry scale 22, low risk, s/p amputation toe per arch support technician. refer to C notes for details GI: Pt had 1 BM today per arch support technician. PES: Decreased nutrient needs r/t adiposity aeb pt`s high BMI of 48.8 kgm2 Altered nutrition related lab values r/t current/chronic medical condition aeb lev BUN A1C, hyperglycemia, mild hypoalb Will continue to monitor PO intake, skin status, pertinent labs and weight trend. F/u in 3 to 5 days. Rec.: 1.) refer to CDE on DC. 2) consider MVI/C bid. 3) contiue current plan of care
[2019-05-17 13:00] VITALS: BP 126/86
--- NOTE | 2019-05-17 15:09 | NUR ---
D/C digital color press operator Pinya advised me Pt is refusing to go to [place]. Spoke to Pt regarding placement and he said he wanted me to try [facility] again. Contact [facility] PH:) Fax:( [phone]) re-faxed medical records. Per Katlyn from [facility] she has a male available bed and Pt has been accepted to room [address] MD Dr. Castanon. Contact [facility] transportation Ph:( [phone]) spoke to Candice. Advised Candice to set up transport on will call and RN will call once Pt has discharge order. Informed DONITA Rios.
[2019-05-17 17:36] VITALS: BP 158/91
--- NOTE | 2019-05-17 17:45 | NUR ---
Contact [employer] transportation Ph:) vegetable picker time at 1130 PM , Spoke Enmanuel
--- NOTE | 2019-05-17 17:49 | NUR ---
Contact [facility] PH:( [phone]) report given Tatianna .
--- NOTE | 2019-05-17 18:00 | NUR ---
Bus pass give to his GF (Marcela).
--- NOTE | 2019-05-17 18:06 | NUR ---
Midline got infiltrated , swelling. Dr. perez notified , received with new orders as follow :Hold d/c, u/s to right upper arm.
--- NOTE | 2019-05-17 18:27 | NUR ---
Called Heather Jimenez due to D/C is being held.
--- NOTE | 2019-05-17 19:50 | NUR ---
Opening Shift Note Assumed care of patient, awake, AAOx4. No S/S of distress/SOB or pain. On room air and ambulatory. No IV access, charge master analyst aware. Will obtain IV access. Bed in lowest locked position, side rails up x2, call light within reach. Instructed on POC and to call for assist PRN, will continue to monitor for changes Q1hr and PRN.
[2019-05-17 22:00] VITALS: BP 150/93
[2019-05-17] MEDS: ATORVASTATIN 20 MG TAB PO SCH (22:00)
[2019-05-17] MEDS: INSULIN LANTUS (GLARGINE) 1 /0.01ml (100units/ml) SC SCH (22:00)
--- NOTE | 2019-05-18 | NUR ---
IV insertion IV access obtained, via clean sterile technique by inserting 20 gauge catheter at RT FA after 1 attempt. IV secured properly. No trauma to site. Patient tolerated procedure well.
[2019-05-18] MEDS: IPRATROPIUM BROM 0.5 MG/2.5ML INH SOL NEB SCH ×4 (00:02→19:52)
[2019-05-18] MEDS: ALBUTEROL SULF 2.5 MG/0.5ML(0.5%) NEB SOLN NEB SCH ×4 (00:02→19:51)
--- NOTE | 2019-05-18 00:05 | NUR ---
Received new orders Dafne Fajardo MD regarding positive result of Lt arm upper extremity venous ultrasound of non occlusive thrombus in Lt axillary vein. Received call back and received orders for Eliquis 10 mg PO BID for 3 days, then 5 mg PO BID for 6 weeks. RBO and verified. Will carry out orders and continue care.
[2019-05-18] MEDS: APIXABAN 5 MG TAB PO SCH ×2 (01:00→09:34)
[2019-05-18] MEDS: VANCOMYCIN 1,250 MG in D5W 5% 250 ML IV SCH ×3 (02:00→18:11)
[2019-05-18] MEDS: SPIRONOLACTONE 25 MG TAB PO SCH ×2 (06:00→18:11)
[2019-05-18] MEDS: PIPERACILLIN-TAZO 4.5GM 100 ML IV SCH ×4 (06:00→18:05)
[2019-05-18] MEDS: SODIUM CHLOR 0.9% PF (SALINE LOCK) 10ML VIAL/SYR IV SCH ×2 (06:00→13:39)
[2019-05-18] MEDS: INSULIN LISPRO (HUMAN) 100 UNITS/ML ML SC SCH ×3 (06:51→17:13)
[2019-05-18] MEDS: ACCU-CHEK COMFORT CURVE STRIP VI SCH ×3 (06:51→17:14)
[2019-05-18] MEDS: InsuLIN REG 1unit/0.01ml Soln (100units/ml) SC SCH ×3 (06:51→17:13)
--- NOTE | 2019-05-18 08:02 | NUR ---
House sup notified regarding patient needs Midline placement.
[2019-05-18 09:18] VITALS: BP 138/67
[2019-05-18] MEDS: PANTOPRAZOLE 40 MG TAB PO SCH (09:34)
[2019-05-18] MEDS: CARVEDILOL 3.125 MG TAB PO SCH (09:34)
[2019-05-18] MEDS: ENOXAPARIN SOD 40 MG/0.4 ML SYRINGE SC SCH (09:34)
[2019-05-18] MEDS: SACUBITRIL-VALSARTAN 24mg/26mg TAB PO SCH (09:34)
[2019-05-18] MEDS: ASPirin 81 mg TAB PO SCH (09:34)
[2019-05-18] MEDS: HYDROcodone-ACET 5/325MG TAB PO PRN ×2 (09:35→18:41)
[2019-05-18 09:52] LABS: BUN/Creatinine Ratio 20.5; Calcium 8.3 mg/dL (8.5-10.1); Potassium 3.8 mmol/L (3.5-5.1)
[2019-05-18 12:31] VITALS: BP 152/99
--- NOTE | 2019-05-18 15:29 | NUR ---
Midline Placement: Patient educated on need for midline placement. All risks and benefits explained and all questions and concerns addresses prior to procedure. g/cm midline inserted via right basilic vein using Ultrasound. Sterile technique utilized. Blood return obtained from a single lumen and flushed easily with NS using proper technique. Midline secured with saline lock; biodisc and occlusive dressing applied. Primary RN notified. Midline lot #[id number] eXTERNAL LENGTH 0CM iNTERNAL LENGTH 20CM
[2019-05-18 17:00] VITALS: BP 135/75
--- NOTE | 2019-05-18 17:49 | NUR ---
Contact [employer] transportation Ph:( [phone]) , TIME TO [employer] SIL[place] AT 9 PM, SPOKE UP BEGGY.
--- NOTE | 2019-05-18 17:52 | NUR ---
Notified [facility] PH:) that patient is leaving [facility], spoke to Inés.
--- NOTE | 2019-05-18 18:27 | NUR ---
Per Leigh Ann RIOS, bantry sup will give taxi Voucher.
[2019-05-18] MEDS ORDERED: INFLUENZA QUAD 2019-2020 0.5ml SYRG IM ONE (19:00)
--- NOTE | 2019-05-18 19:30 | NUR ---
Opening Shift Note Assumed care of patient, awake and alert. No S/S of distress/SOB or pain. Bed in lowest locked position, side rails up x2, call light within reach. Instructed on POC and to call for assist PRN, will continue to monitor for changes Q1hr and PRN.
[2019-05-18 20:00] VITALS: BP 125/73
--- NOTE | 2019-05-18 20:00 | NUR ---
Taxi Voucher Received [employer] voucher, phone call placed to [employer] and arrangements made for pickup of patient's fiance. Will continue care.
--- NOTE | 2019-05-18 22:05 | NUR ---
Transfer to [facility] Discharge instructions given as ordered. Encourage to follow up with PMD as instructed. All questions and concerns addressed. Patient verbalized understanding. Medication reconciliation form completed and copy given to patient. Midline to right upper arm noted to be patient, clean, dry, and intact. Midline will remain in place for transfer for patient to receive ordered antibiotics at facility. Telemetry unit returned to monitor technicians. Patient taken to vehicle via gurney with all personal belongings, accompanied by Benjamínk. Wyatt Medrano picked up by cab. No distress noted at time of departure.
[2019-05-24] MEDS ORDERED: APIXABAN 5 MG TAB PO SCH (22:00)
== END 2019-05-18 22:06 | DRG 616 ==
LOC: EDBD 13:49 → ER 13:52 → TELE 13:53 → TELE-WESTW 20:51
PROVIDERS: ADMIT Internal Medicine; ATTEND Internal Medicine Cardiovascular Disease
PROC: 0Y6R0Z3 Detachment at Right 2nd Toe, Low, Open Approach (ICD-10-PCS; principal; 2019-05-15 14:58)
DX: E11.69 Type 2 diabetes mellitus with other specified complication (principal); J96.20 Acute and chronic respiratory failure, unspecified whether with hypoxia or hypercapnia; I50.43 Acute on chronic combined systolic (congestive) and diastolic (congestive) heart failure; E44.1 Mild protein-calorie malnutrition; J44.1 Chronic obstructive pulmonary disease with (acute) exacerbation; E87.1 Hypo-osmolality and hyponatremia; L03.115 Cellulitis of right lower limb; M86.8X7 Other osteomyelitis, ankle and foot; E11.621 Type 2 diabetes mellitus with foot ulcer; I11.0 Hypertensive heart disease with heart failure; L97.519 Non-pressure chronic ulcer of other part of right foot with unspecified severity; E11.65 Type 2 diabetes mellitus with hyperglycemia; E66.01 Morbid (severe) obesity due to excess calories; M19.90 Unspecified osteoarthritis, unspecified site; E78.00 Pure hypercholesterolemia, unspecified; E11.21 Type 2 diabetes mellitus with diabetic nephropathy; F15.10 Other stimulant abuse, uncomplicated; E11.40 Type 2 diabetes mellitus with diabetic neuropathy, unspecified; I25.5 Ischemic cardiomyopathy; E78.5 Hyperlipidemia, unspecified; F17.210 Nicotine dependence, cigarettes, uncomplicated; I25.2 Old myocardial infarction; Z82.49 Family history of ischemic heart disease and other diseases of the circulatory system; Z86.73 Personal history of transient ischemic attack (TIA), and cerebral infarction without residual deficits; Z95.810 Presence of automatic (implantable) cardiac defibrillator; Z83.3 Family history of diabetes mellitus; Z68.25 Body mass index [BMI] 25.0-25.9, adult; Z23 Encounter for immunization
CPT/HCPCS: 36415; 71045; 73660; 73701; 78315; 80048; 80053; 80202; 80307; 81001; 82550; 82565; 82962; 83036; 83735; 83880; 84484; 85025; 85379; 85610; 85730; 86850; 86900; 86901; 93005; 93926; 93971; 94640; 96365; 96366; 96372; 96375; G0378; J0690; J1815; J2250; J2543; J2704; J3490; J7060

== ENCOUNTER → 2019-06-17 | Outpatient (CLI) | payer MEDICARE, MEDICAID ==
[~2019-06-17] MED LIST changes: -METF-371 PO; -POTA10TA51 PO
== END | disposition home or self-care (01) ==
LOC: Rad HDHVI 10:44
PROVIDERS: ATTEND Internal Medicine Cardiovascular Disease
DX: I34.0 Nonrheumatic mitral (valve) insufficiency (principal); I73.9 Peripheral vascular disease, unspecified; I25.5 Ischemic cardiomyopathy; I51.7 Cardiomegaly
CPT/HCPCS: 93306

== ENCOUNTER 2019-06-22 20:26 | Emergency (ER) | payer MEDICARE, MEDICAID ==
[~2019-06-22] VITALS: Ht 172.7 cm; Wt 122.0 kg
[2019-06-22 22:57] VITALS: BP 142/78
== END 2019-06-22 22:59 | disposition home or self-care (01) ==
LOC: ER 20:27
DX: Z45.2 Encounter for adjustment and management of vascular access device (principal); I11.0 Hypertensive heart disease with heart failure; I50.9 Heart failure, unspecified; J44.9 Chronic obstructive pulmonary disease, unspecified; E11.9 Type 2 diabetes mellitus without complications; E78.5 Hyperlipidemia, unspecified; I25.2 Old myocardial infarction; F17.210 Nicotine dependence, cigarettes, uncomplicated; Z95.0 Presence of cardiac pacemaker
CPT/HCPCS: 71045

== ENCOUNTER → 2019-10-02 | Emergency (ER) | payer MEDICARE, MEDICAID ==
[~2019-10-02] VITALS: Ht 172.7 cm; Wt 102.1 kg
[~2019-10-02] MED LIST changes: +APIX2.5T PO; +ATO40T PO; +CARV6.2551 PO; +CEPH500C PO; +HYDR-531 PO; +INSLANTI SC; +INSLISPI SC; +INSU100I26 SC; +PANT1INJ3 PO; +SACU1TAB7 PO; +SERT-274 PO; +TEMA15CA PO; +cloNIDine HCL 0.1 MG TAB PO ONE; +hydrALAZINE HCL 10 MG TAB PO ONE
[2019-10-02 01:24] LABS: Basophils # (auto) 0.1 10 ^3/uL (0-0.2); Basophils % (auto) 0.6 % (0.0-2.0); Eosinophils # (auto) 0.1 10 ^3/uL (0-0.8); Eosinophils % (auto) 1.1 % (0.0-7.0); Hematocrit 45.8 % (41.0-53.0); Hemoglobin 15.2 g/dL (13.5-17.5); Lymphocytes # (auto) 1.1 10 ^3/uL (0.4-5.4); Lymphocytes % (auto) 10.4 % (10.0-50.0); Mean Corpuscular Hemoglobin 28.3 pg (28.0-32.0); Mean Corpuscular Hgb Conc. 33.2 g/dL (32.0-36.0); Mean Corpuscular Volume 85.2 fL (80.0-100.0); Monocytes # (auto) 0.6 10 ^3/uL (0-1.3); Monocytes % (auto) 5.1 % (0.0-12.0); Neutrophils # (auto) 9.1 10 ^3/uL (1.6-8.6); Neutrophils % (auto) 82.8 % (37.0-80.0); Nucleated Red Blood Cells % 0.1 %; Platelet Count (auto) 302 10^3/uL (140-450); Red Blood Cells 5.38 10^6/uL (4.5-5.90); Red Cell Distribution Width 13.9 % (11.8-14.3)
[2019-10-02 01:36] LABS: INR 1.03 (0.9-1.15); Partial Thromboplastin Time 29.2 sec (23.64-32.05)
[2019-10-02 01:38] LABS: Albumin 3.3 g/dL (3.4-5.0); Anion Gap 8 (5-15); Blood Urea Nitrogen 20 mg/dL (7-18); Calcium 8.9 mg/dL (8.5-10.1); Carbon Dioxide 21 mmol/L (21-32); Chloride 107 mmol/L (98-107); Glucose 201 mg/dL (74-106); Potassium 3.5 mmol/L (3.5-5.1); Sodium 136 mmol/L (136-145)
[2019-10-02 01:40] LABS: BUN/Creatinine Ratio 24.7; GFR African American 129 mL/min; GFR Non-African American 107 mL/min
[2019-10-02 01:45] LABS: Alanine Aminotransferase 26 U/L (16-61); Alkaline Phosphatase 105 U/L (45-117); Aspartate Aminotransferase 16 U/L (15-37); Bilirubin, Total 0.7 mg/dL (0.2-1.0); Total Protein 7.7 g/dL (6.4-8.2)
[2019-10-02 04:06] VITALS: BP 140/85
[2019-10-02 05:31] LABS: Salicylate < 1.7 mg/dL (2.8-20.0)
[2019-10-02 05:33] LABS: Acetaminophen < 2.0 ug/mL (10-30)
== END | disposition home or self-care (01) ==
LOC: EDBD 00:36 → EDUNIT# 00:36 → ER 00:44
DX: F32.9 Major depressive disorder, single episode, unspecified (principal); I11.0 Hypertensive heart disease with heart failure; I50.9 Heart failure, unspecified; J44.9 Chronic obstructive pulmonary disease, unspecified; E11.9 Type 2 diabetes mellitus without complications; E78.5 Hyperlipidemia, unspecified; I25.2 Old myocardial infarction; Z86.73 Personal history of transient ischemic attack (TIA), and cerebral infarction without residual deficits
CPT/HCPCS: 36415; 70450; 71045; 80053; 80320; 80329; 83735; 84484; 85025; 85610; 85730; 93005

== ENCOUNTER → 2019-12-18 | Outpatient (CLI) | payer MEDICARE, MEDICAID ==
[~2019-12-18] MED LIST changes: -cloNIDine HCL 0.1 MG TAB PO ONE; -hydrALAZINE HCL 10 MG TAB PO ONE
== END | disposition home or self-care (01) ==
LOC: CATH 10:40 → EDSTATUS 01-02 09:30
PROVIDERS: ATTEND Internal Medicine Cardiovascular Disease
DX: Z01.818 Encounter for other preprocedural examination (principal); I25.10 Atherosclerotic heart disease of native coronary artery without angina pectoris; Z79.899 Other long term (current) drug therapy; Z98.890 Other specified postprocedural states

== ENCOUNTER → 2019-12-31 | Outpatient (CLI) | payer MEDICARE, MEDICAID ==
[~2019-12-31] MED LIST changes: -APIX2.5T PO; -ATO40T PO; -CARV6.2551 PO; -CEPH500C PO; -HYDR-531 PO; -INSLANTI SC; -INSLISPI SC; -INSU100I26 SC; -PANT1INJ3 PO; -SACU1TAB7 PO; -SERT-274 PO; -TEMA15CA PO
[2019-12-31 09:15] VITALS: BP 114/73
--- NOTE | 2019-12-31 09:15 | NUR ---
CLINIC PT ARRIVED TO THE CLINIC FOR PRE OP EKG, LABS, AND CXR FOR LHC. A/O X4, AMBULATORY.
--- NOTE | 2019-12-31 09:27 | NUR ---
EKG DONE BY DEBBIE SIMS REVIEWED BY DINH DUCKWORTH SR 81 WITH PROLONGED WY INTERVAL
[2019-12-31 09:50] VITALS: BP 120/70
--- NOTE | 2019-12-31 09:50 | NUR ---
Pre-Op Discharge Summary: See e-MAR for any medications given for this visit. Pre-op orders received and carried out per MD of EKG, LABS and chest xrays. Patient given a copy of EKG with instructions to go to [facility] out patient for further follow up care AND COVID TESTING. ALSO TOLD TO SELF ISOLATE UNTIL AFTER THE PROCEDURE . NOTE EKG PERFORMED BY DEBBIE SIMS AND REVIEWED BY DINH DUCKWORTH
[2019-12-31 11:58] LABS: Basophils # (auto) 0 10 ^3/uL (0-0.2); Basophils % (auto) 0.5 % (0.0-2.0); Eosinophils # (auto) 0.2 10 ^3/uL (0-0.8); Hemoglobin 14.2 g/dL (13.5-17.5); Lymphocytes # (auto) 1.4 10 ^3/uL (0.4-5.4); Mean Corpuscular Hemoglobin 28.8 pg (28.0-32.0); Mean Corpuscular Hgb Conc. 33.1 g/dL (32.0-36.0); Mean Corpuscular Volume 87.2 fL (80.0-100.0); Monocytes # (auto) 0.5 10 ^3/uL (0-1.3); Monocytes % (auto) 6.7 % (0.0-12.0); Neutrophils # (auto) 5.4 10 ^3/uL (1.6-8.6); Neutrophils % (auto) 70.8 % (37.0-80.0); Nucleated Red Blood Cells % 0.1 %; Platelet Count (auto) 273 10^3/uL (140-450); Red Blood Cells 4.93 10^6/uL (4.5-5.90); Red Cell Distribution Width 14.2 % (11.8-14.3); White Blood Cell 7.6 10^3/uL (4.4-10.8)
[2019-12-31 12:04] LABS: Calcium 8.8 mg/dL (8.5-10.1); Potassium 3.5 mmol/L (3.5-5.1)
[2019-12-31 12:14] LABS: INR 1.02 (0.9-1.15); Partial Thromboplastin Time 28.9 sec (23.64-32.05)
[2019-12-31 13:59] LABS: BUN/Creatinine Ratio 24.3
--- NOTE | 2020-01-01 11:00 | NUR ---
Pt. arrived at hospital for pre-op interview this morning despite his procedure being cancelled by MD office on 12/31/19. Pt. was informed by Oly Pabon RN re: cancellation and instructed to call office for further instructions. Pt. verbalized understanding and is conpliant.
== END | disposition home or self-care (01) ==
LOC: Rad HDHVI 09:04
PROVIDERS: ATTEND Internal Medicine Cardiovascular Disease
DX: I11.0 Hypertensive heart disease with heart failure (principal); I50.9 Heart failure, unspecified; E11.9 Type 2 diabetes mellitus without complications; R79.1 Abnormal coagulation profile; D64.9 Anemia, unspecified; Z01.812 Encounter for preprocedural laboratory examination
CPT/HCPCS: 36415; 71046; 80048; 85025; 85610; 85730; 93005; G0463

== ENCOUNTER → 2020-01-09 | Emergency (ER) | payer MEDICARE, MEDICAID ==
[~2020-01-09] VITALS: Ht 172.7 cm; Wt 152.9 kg
[~2020-01-09] MED LIST changes: +APIX2.5T PO; +ATO40T PO; +CARV6.2551 PO; +CEPH500C PO; +CLINDAMYCIN 600MG IV 50 ML IV ONE; +CLINDAMYCIN 600MG IV 50 ML IV SCH; +FUROSEMIDE 40 MG/4 ML VIAL IV ONE; +HYDR-531 PO; +INSLANTI SC; +INSLISPI SC; +INSU100I26 SC; +MORPHINE SULF INJ 2 MG/ML SYRINGE 1ML IV PRN; +NITROGLYCERIN 0.4 MG SL TAB SL PRN; +PANT1INJ3 PO; +SACU1TAB7 PO; +SERT-274 PO; +TEMA15CA PO; +levoFLOXacin 500MG 100 ML IV ONE; +levoFLOXacin 500MG 100 ML IV SCH
[2020-01-09 06:22] LABS: Basophils # (auto) 0 10 ^3/uL (0-0.2); Basophils % (auto) 0.5 % (0.0-2.0); Eosinophils # (auto) 0.3 10 ^3/uL (0-0.8); Eosinophils % (auto) 3.2 % (0.0-7.0); Hematocrit 38.4 % (41.0-53.0); Lymphocytes # (auto) 1.5 10 ^3/uL (0.4-5.4); Lymphocytes % (auto) 17.8 % (10.0-50.0); Mean Corpuscular Hemoglobin 29.6 pg (28.0-32.0); Mean Corpuscular Hgb Conc. 33.9 g/dL (32.0-36.0); Mean Corpuscular Volume 87.1 fL (80.0-100.0); Monocytes # (auto) 0.4 10 ^3/uL (0-1.3); Monocytes % (auto) 4.8 % (0.0-12.0); Neutrophils # (auto) 6.3 10 ^3/uL (1.6-8.6); Neutrophils % (auto) 73.7 % (37.0-80.0); Platelet Count (auto) 236 10^3/uL (140-450); Red Blood Cells 4.41 10^6/uL (4.5-5.90); White Blood Cell 8.6 10^3/uL (4.4-10.8)
[2020-01-09 06:40] LABS: INR 1.01 (0.9-1.15); Partial Thromboplastin Time 25.8 sec (23.64-32.05)
[2020-01-09 06:56] LABS: Potassium 3.9 mmol/L (3.5-5.1)
[2020-01-09 07:16] LABS: BUN/Creatinine Ratio 17.9; Bilirubin, Total 0.4 mg/dL (0.2-1.0); Calcium 8.4 mg/dL (8.5-10.1); Total Protein 7.1 g/dL (6.4-8.2)
[2020-01-09 12:00] VITALS: BP 149/87
== END | disposition home or self-care (01) ==
LOC: ER 03:36
DX: L03.031 Cellulitis of right toe (principal); E11.65 Type 2 diabetes mellitus with hyperglycemia; R00.0 Tachycardia, unspecified; I11.0 Hypertensive heart disease with heart failure; I50.9 Heart failure, unspecified; J44.9 Chronic obstructive pulmonary disease, unspecified; E78.5 Hyperlipidemia, unspecified; I25.2 Old myocardial infarction; F17.210 Nicotine dependence, cigarettes, uncomplicated
CPT/HCPCS: 36415; 71046; 73630; 73700; 80053; 82962; 83880; 84484; 85025; 85610; 85730; 93005; 96374; 99285; J1940

== ENCOUNTER 2020-01-16 00:39 | Inpatient (IN) | payer MEDICARE, MEDICAID ==
[~2020-01-16] VITALS: Ht 174 cm; Wt 158.6 kg
[~2020-01-16 00:39] MED LIST changes: -APIX2.5T PO; -ATO40T PO; -CARV6.2551 PO; -CEPH500C PO; -CLINDAMYCIN 600MG IV 50 ML IV ONE; -CLINDAMYCIN 600MG IV 50 ML IV SCH; -FUROSEMIDE 40 MG/4 ML VIAL IV ONE; -HYDR-531 PO; -INSLANTI SC; -INSLISPI SC; -INSU100I26 SC; -MORPHINE SULF INJ 2 MG/ML SYRINGE 1ML IV PRN; -NITROGLYCERIN 0.4 MG SL TAB SL PRN; -PANT1INJ3 PO; -SACU1TAB7 PO; -SERT-274 PO; -TEMA15CA PO; -levoFLOXacin 500MG 100 ML IV ONE; -levoFLOXacin 500MG 100 ML IV SCH
[2020-01-16 02:05] LABS: Basophils # (auto) 0 10 ^3/uL (0-0.2); Basophils % (auto) 0.5 % (0.0-2.0); Eosinophils # (auto) 0.3 10 ^3/uL (0-0.8); Eosinophils % (auto) 3.1 % (0.0-7.0); Hematocrit 41.3 % (41.0-53.0); Hemoglobin 13.7 g/dL (13.5-17.5); Lymphocytes % (auto) 23.1 % (10.0-50.0); Mean Corpuscular Hemoglobin 29.3 pg (28.0-32.0); Mean Corpuscular Hgb Conc. 33.2 g/dL (32.0-36.0); Mean Corpuscular Volume 88.3 fL (80.0-100.0); Monocytes # (auto) 0.6 10 ^3/uL (0-1.3); Monocytes % (auto) 7.1 % (0.0-12.0); Neutrophils # (auto) 5.6 10 ^3/uL (1.6-8.6); Neutrophils % (auto) 66.2 % (37.0-80.0); Nucleated Red Blood Cells % 0.1 %; Platelet Count (auto) 271 10^3/uL (140-450); Red Blood Cells 4.68 10^6/uL (4.5-5.90); Red Cell Distribution Width 14.7 % (11.8-14.3); White Blood Cell 8.5 10^3/uL (4.4-10.8)
[2020-01-16 02:23] LABS: Albumin 3.2 g/dL (3.4-5.0); BUN/Creatinine Ratio 27.7; Calcium 8.3 mg/dL (8.5-10.1); Potassium 3.9 mmol/L (3.5-5.1)
[2020-01-16 02:26] LABS: Bilirubin, Total 0.4 mg/dL (0.2-1.0); Total Protein 7.4 g/dL (6.4-8.2)
[2020-01-16] MEDS ORDERED: CEFTRIAXONE SODIUM 2 GM in D5W 5% 50 ML IV ONE (03:45)
[2020-01-16] MEDS ORDERED: cefTRIAXone 1GM/50ML D5W 100 ML IV ONE (04:05)
[2020-01-16] MEDS ORDERED: VANCOMYCIN PER PHARMACY 0 MG IV SCH (08:30)
[2020-01-16] MEDS ORDERED: HYDROcodone-ACET 10/325MG TAB PO PRN (08:30)
[2020-01-16] MEDS ORDERED: DEXTROSE (50%) 50ML SYRG IV PRN (08:30)
[2020-01-16] MEDS ORDERED: VANCOMYCIN 1GM/250ML 250 ML IV SCH (10:00)
[2020-01-16] MEDS: cefTRIAXone 1GM/50ML D5W 50 ML IV SCH (10:40)
[2020-01-16] MEDS: CARVEDILOL 3.125 MG TAB PO SCH ×2 (10:40→22:10)
[2020-01-16] MEDS: SPIRONOLACTONE 25 MG TAB PO SCH ×2 (10:40→22:09)
[2020-01-16] MEDS: FUROSEMIDE 40 MG TAB PO SCH (10:41)
[2020-01-16] MEDS: metFORMIN HYDROCHLORIDE 500 MG TAB PO SCH ×2 (10:41→22:11)
[2020-01-16] MEDS: PANTOPRAZOLE 40 MG TAB PO SCH (10:41)
[2020-01-16] MEDS: SACUBITRIL-VALSARTAN 24mg/26mg TAB PO SCH ×2 (10:41→22:10)
[2020-01-16] MEDS ORDERED: HYDR-531 PO (11:30)
[2020-01-16] MEDS ORDERED: SACU1TAB7 PO (11:30)
[2020-01-16] MEDS ORDERED: InsuLIN REG 1unit/0.01ml Soln (100units/ml) SC ONE (11:30)
--- NOTE | 2020-01-16 11:30 | NUR ---
MS admit from ER MARYURI WILLS admitted to tele/MS after SBAR received. Patient oriented to DARCI ROGERS, primary RN, unit, room, bed, and unit policies regarding patient care and visiting hours. Patient weighed by bed scale and encouraged to call if they need something. All questions and concerns addressed, patient verbalized understanding. Note:
[2020-01-16] MEDS: VANCOMYCIN 1GM/250ML 250 ML IV SCH ×2 (11:48→18:00)
[2020-01-16] MEDS: ACCU-CHEK COMFORT CURVE STRIP VI SCH ×3 (11:49→22:11)
[2020-01-16] MEDS ORDERED: SACU1TAB PO (12:33)
[2020-01-16] MEDS ORDERED: CARV6.2551 PO (12:33)
[2020-01-16] MEDS ORDERED: PANT1INJ3 PO (12:33)
[2020-01-16] MEDS ORDERED: INSLANTI SC ×2 (12:33)
[2020-01-16] MEDS ORDERED: SERT-274 PO (12:33)
[2020-01-16] MEDS ORDERED: APIX2.5T PO (12:33)
[2020-01-16] MEDS ORDERED: SPIR25TA8 PO (12:33)
[2020-01-16] MEDS ORDERED: TEMA15CA PO (12:33)
[2020-01-16] MEDS ORDERED: CEPH500C PO (12:33)
[2020-01-16] MEDS ORDERED: INSU100I26 SC (12:33)
[2020-01-16] MEDS ORDERED: INSLISPI SC (12:33)
[2020-01-16] MEDS ORDERED: ATO40T PO (12:33)
[2020-01-16 12:47] VITALS: BP 134/69
[2020-01-16 16:47] VITALS: BP 130/68
[2020-01-16] MEDS: ATORVASTATIN 20 MG TAB PO SCH (18:00)
--- NOTE | 2020-01-16 19:18 | NUR ---
Opening Shift Note Assumed care of patient, awake, alert and oriented x4, on room air with even and unlabored respirations, no S/S of distress/SOB or pain. Patient able to turn in bed independently, bed in lowest locked position, side rails up x2, and call light within reach. Instructed on POC and to call for assist PRN, will continue to monitor for changes Q1hr and PRN.
[2020-01-16 22:00] VITALS: BP 115/69
[2020-01-16] MEDS ORDERED: INSULIN LANTUS (GLARGINE) 1 /0.01ml (100units/ml) SC SCH (22:00)
[2020-01-17] MEDS: VANCOMYCIN 1GM/250ML 250 ML IV SCH ×3 (02:29→18:27)
[2020-01-17 05:00] VITALS: BP 120/68
[2020-01-17 09:00] VITALS: BP 127/80
[2020-01-17] MEDS: SACUBITRIL-VALSARTAN 24mg/26mg TAB PO SCH (09:58)
[2020-01-17] MEDS: FUROSEMIDE 40 MG TAB PO SCH (09:58)
[2020-01-17] MEDS: PANTOPRAZOLE 40 MG TAB PO SCH (09:58)
[2020-01-17] MEDS: metFORMIN HYDROCHLORIDE 500 MG TAB PO SCH (09:59)
[2020-01-17] MEDS: CARVEDILOL 3.125 MG TAB PO SCH (09:59)
[2020-01-17] MEDS: SPIRONOLACTONE 25 MG TAB PO SCH (09:59)
[2020-01-17] MEDS: cefTRIAXone 1GM/50ML D5W 50 ML IV SCH (09:59)
[2020-01-17] MEDS: ACCU-CHEK COMFORT CURVE STRIP VI SCH ×3 (11:30→17:59)
[2020-01-17 13:00] VITALS: BP 129/84
--- NOTE | 2020-01-17 13:13 | NUR ---
Patient refused the 2 rd part of bone scan.
--- NOTE | 2020-01-17 15:13 | NUR ---
Informed Dr. King regarding patient refused the 2rd part of bone scan.
--- NOTE | 2020-01-17 16:03 | NUR ---
Patient agreed to do the 2rd part of bone scan. It is completed.
[2020-01-17 16:41] VITALS: BP 130/69
[2020-01-17] MEDS: ATORVASTATIN 20 MG TAB PO SCH (17:59)
--- NOTE | 2020-01-17 19:17 | NUR ---
Informed CN regarding patient left AMA. Will endorse to scene shifter.
== END 2020-01-17 19:15 | disposition left against medical advice (07) | DRG 603 ==
LOC: ER 00:43 → OVERFLOW 00:44 → WEST WING 11:14
PROVIDERS: ADMIT Internal Medicine Cardiovascular Disease; ATTEND Internal Medicine Cardiovascular Disease
DX: L03.031 Cellulitis of right toe (principal); Z68.43 Body mass index [BMI] 50.0-59.9, adult; J44.9 Chronic obstructive pulmonary disease, unspecified; E11.40 Type 2 diabetes mellitus with diabetic neuropathy, unspecified; E66.01 Morbid (severe) obesity due to excess calories; E78.5 Hyperlipidemia, unspecified; F17.210 Nicotine dependence, cigarettes, uncomplicated; I11.0 Hypertensive heart disease with heart failure; I50.9 Heart failure, unspecified; L97.519 Non-pressure chronic ulcer of other part of right foot with unspecified severity; I25.10 Atherosclerotic heart disease of native coronary artery without angina pectoris; I25.2 Old myocardial infarction; Z83.3 Family history of diabetes mellitus; Z86.73 Personal history of transient ischemic attack (TIA), and cerebral infarction without residual deficits; Z82.49 Family history of ischemic heart disease and other diseases of the circulatory system; Z95.810 Presence of automatic (implantable) cardiac defibrillator; Z89.421 Acquired absence of other right toe(s); E11.65 Type 2 diabetes mellitus with hyperglycemia
CPT/HCPCS: 36415; 73700; 78315; 80053; 80202; 82962; 85025; 93926; G0378; J0696; J1815; J7060

== ENCOUNTER 2020-02-20 14:26 | Inpatient (IN) | payer MEDICARE, MEDICAID ==
[~2020-02-20] VITALS: Ht 177.8 cm; Wt 154.7 kg
[~2020-02-20 14:26] MED LIST changes: +APIX2.5T PO; +ATO40T PO; +CARV6.2551 PO; +CEPH500C PO; +HYDR-531 PO; +INSLANTI SC; +INSLISPI SC; +INSU100I26 SC; +PANT1INJ3 PO; +SACU1TAB7 PO; +SERT-274 PO; +TEMA15CA PO
[2020-02-20] MEDS ORDERED: FUROSEMIDE 40 MG/4 ML VIAL IV ONE (14:45)
[2020-02-20 15:48] LABS: Basophils # (auto) 0.1 10 ^3/uL (0-0.2); Basophils % (auto) 0.6 % (0.0-2.0); Eosinophils # (auto) 0.2 10 ^3/uL (0-0.8); Eosinophils % (auto) 2.5 % (0.0-7.0); Hematocrit 39.7 % (41.0-53.0); Hemoglobin 13.1 g/dL (13.5-17.5); Lymphocytes # (auto) 1.5 10 ^3/uL (0.4-5.4); Lymphocytes % (auto) 17.5 % (10.0-50.0); Mean Corpuscular Hemoglobin 29.4 pg (28.0-32.0); Mean Corpuscular Volume 89.1 fL (80.0-100.0); Monocytes # (auto) 0.5 10 ^3/uL (0-1.3); Monocytes % (auto) 6.3 % (0.0-12.0); Neutrophils # (auto) 6.3 10 ^3/uL (1.6-8.6); Neutrophils % (auto) 73.1 % (37.0-80.0); Nucleated Red Blood Cells % 0.2 %; Platelet Count (auto) 282 10^3/uL (140-450); Red Blood Cells 4.46 10^6/uL (4.5-5.90); Red Cell Distribution Width 14.7 % (11.8-14.3); White Blood Cell 8.6 10^3/uL (4.4-10.8)
[2020-02-20 16:03] LABS: Calcium 8.1 mg/dL (8.5-10.1); Potassium 3.5 mmol/L (3.5-5.1)
[2020-02-20 16:14] LABS: BUN/Creatinine Ratio 19.7; Bilirubin, Total 0.6 mg/dL (0.2-1.0)
[2020-02-20 16:27] LABS: INR 0.98 (0.9-1.15); Partial Thromboplastin Time 27.2 sec (23.0-31.2)
[2020-02-20] MEDS ORDERED: IOHEXOL 300 MG/ML 100ML BOTTLE IJ ONE (17:19)
[2020-02-20] MEDS ORDERED: NITROGLYCERIN 0.4 MG SL TAB SL PRN (22:00)
[2020-02-20] MEDS ORDERED: HYDROmorphone HCL 2 MG/ML VL IV PRN (22:00)
[2020-02-20] MEDS ORDERED: DEXTROSE (50%) 50ML SYRG IV PRN (22:00)
[2020-02-20] MEDS ORDERED: MORPHINE SULF INJ 2 MG/ML SYRINGE 1ML IV PRN (22:00)
[2020-02-20] MEDS: LEVALBUTEROL HCL 1.25 MG/3 ML NEB NEB SCH (23:52)
[2020-02-20] MEDS: POTASSIUM CHL 20 Meq TABLET PO SCH (23:54)
[2020-02-20] MEDS: ceFAZolin 1GM/50ML 100 ML IV SCH (23:54)
[2020-02-20] MEDS: ACCU-CHEK COMFORT CURVE STRIP VI SCH (23:55)
[2020-02-21] VITALS (8 sets, daily range): BP systolic 106–155; BP diastolic 67–98
[2020-02-21] MEDS: INSULIN LANTUS (GLARGINE) 1 /0.01ml (100units/ml) SC SCH ×2 (00:08→22:00)
[2020-02-21] MEDS: InsuLIN REG 1unit/0.01ml Soln (100units/ml) SC SCH ×7 (00:09→23:45)
[2020-02-21 05:42] LABS: Basophils # (auto) 0 10 ^3/uL (0-0.2); Basophils % (auto) 0.5 % (0.0-2.0); Eosinophils # (auto) 0.3 10 ^3/uL (0-0.8); Eosinophils % (auto) 2.8 % (0.0-7.0); Hematocrit 39.6 % (41.0-53.0); Hemoglobin 13.2 g/dL (13.5-17.5); Lymphocytes # (auto) 1.6 10 ^3/uL (0.4-5.4); Lymphocytes % (auto) 16.1 % (10.0-50.0); Mean Corpuscular Hemoglobin 29.8 pg (28.0-32.0); Mean Corpuscular Hgb Conc. 33.5 g/dL (32.0-36.0); Mean Corpuscular Volume 88.9 fL (80.0-100.0); Monocytes # (auto) 0.6 10 ^3/uL (0-1.3); Monocytes % (auto) 6.4 % (0.0-12.0); Neutrophils # (auto) 7.3 10 ^3/uL (1.6-8.6); Neutrophils % (auto) 74.2 % (37.0-80.0); Platelet Count (auto) 286 10^3/uL (140-450); Red Blood Cells 4.45 10^6/uL (4.5-5.90); Red Cell Distribution Width 14.4 % (11.8-14.3); White Blood Cell 9.8 10^3/uL (4.4-10.8)
[2020-02-21 06:03] LABS: Calcium 8.2 mg/dL (8.5-10.1); Potassium 3.2 mmol/L (3.5-5.1)
[2020-02-21 06:08] LABS: BUN/Creatinine Ratio 15.9; Bilirubin, Total 0.6 mg/dL (0.2-1.0); Total Protein 6.7 g/dL (6.4-8.2)
[2020-02-21] MEDS: ceFAZolin 1GM/50ML 100 ML IV SCH ×3 (06:09→23:42)
--- NOTE | 2020-02-21 07:05 | NUR ---
OPENING SHIFT NOTE ASSUMED CARE OF PATIENT FROM CUSTOMER ACCOUNT COORDINATOR RN EVENS. PATIENT IS AWAKE, ALERT X4. PATIENT HAS NO S/S OF DISTRESS/SOB OR PAIN. INSTRUCTED PATIENT ON POC, PATIENT VERBALIZED UNDERSTANDING. BED IS IN LOWEST POSITION WITH SIDE RAILS RAISED X2, BED WHEELS LOCKED, URINAL, AND CALL LIGHT ARE WITHIN REACH. WILL CONTINUE TO MONITOR.
[2020-02-21] MEDS: LEVALBUTEROL HCL 1.25 MG/3 ML NEB NEB SCH ×3 (07:34→22:15)
[2020-02-21] MEDS: ACCU-CHEK COMFORT CURVE STRIP VI SCH ×4 (08:06→23:43)
[2020-02-21] MEDS: FUROSEMIDE 40 MG/4 ML VIAL IV SCH ×3 (08:10→17:39)
[2020-02-21] MEDS: POTASSIUM CHL 20 Meq TABLET PO SCH ×2 (09:45→23:42)
--- NOTE | 2020-02-21 11:13 | NUR ---
WOUND CARE NOTE: WOUND CARE IN TO SEE PATIENT PER WOUND CARE REQUEST. PATIENT ADMITTED TO [facility] FOR CHF EXACERBATION. BEDSIDE NURSE NOTED SKIN INTEGRITY ISSUE UPON ADMISSION. PHOTOGRAPH TAKEN AT THAT TIME FOR REFERENCE. PATIENT NOTED TO HAVE A DIABETIC FOOT ULCER TO THE RIGHT #3 TOE. PATIENT MARCE SCORE IS 19. CLEANSED RIGHT #3 TOE WITH BETADINE, LEFT OPEN TO AIR. RECOMMEND: CLEANSE RIGHT #3 TOE BID/PRN WITH BETADINE, LEAVE OPEN TO AIR. PODIATRY CONSULT. REDISTRIBUTE PRESSURE UTILIZING PILLOWS AND WEDGES. SKIN/WOUND CARE PLAN. CONTINUED MONITORING BY WOUND CARE TEAM. Addendum: 02/21/20 at 1524 by CASSIE MOTA RN RN Amended: Links added.
[2020-02-21] MEDS ORDERED: POTASSIUM EFFERVESENT TAB 25 MEQ PO ONE (15:45)
[2020-02-21] MEDS: SPIRONOLACTONE 25 MG TAB PO SCH (17:39)
--- NOTE | 2020-02-21 18:44 | NUR ---
CLOSING SHIFT NOTE PATIENT HAS NO S/S OF DISTRESS/SOB OR PAIN AT THIS TIME. WILL ENDORSE CARE TO NUT PICKER RN.
--- NOTE | 2020-02-21 20:00 | NUR ---
Opening Shift Note Assumed care of patient, awake and alert. No S/S of distress/SOB or pain. Safety measures in place, bed in lowest position, bed rails raised x2, call light within reach. Instructed on POC and to call for assist PRN, will continue to monitor for changes Q1hr and PRN.
--- NOTE | 2020-02-21 21:29 | NUR ---
geotechnical operating engineer called to inform this RN that pt is showing trigeminal and multifocal PVCs. This RN will preform 12 lead EKG and inform physician of findings.
--- NOTE | 2020-02-21 21:52 | NUR ---
12 Lead EKG preformed, Dr. Sepulveda notified of results. Awaiting response.
--- NOTE | 2020-02-22 | NUR ---
Pt accidentally removed IV himself. Catheter intact, no S/S of distress or bleeding. Pressure dressing applied.
--- NOTE | 2020-02-22 00:10 | NUR ---
IV insertion IV access obtained, via clean sterile technique by inserting 20 gauge catheter at left hand after 1 attempt. IV secured properly. No trauma to site. Patient tolerated well.
[2020-02-22] MEDS: InsuLIN REG 1unit/0.01ml Soln (100units/ml) SC SCH ×5 (03:52→20:30)
[2020-02-22 04:45] VITALS: BP 125/80
[2020-02-22] MEDS: ceFAZolin 1GM/50ML 100 ML IV SCH ×3 (05:59→21:45)
[2020-02-22] MEDS: SPIRONOLACTONE 25 MG TAB PO SCH ×2 (06:00→17:25)
[2020-02-22] MEDS: FUROSEMIDE 40 MG/4 ML VIAL IV SCH ×2 (06:00→17:25)
[2020-02-22] MEDS: LEVALBUTEROL HCL 1.25 MG/3 ML NEB NEB SCH ×3 (06:01→22:42)
[2020-02-22 08:00] VITALS: BP 125/80
--- NOTE | 2020-02-22 08:00 | NUR ---
ASSESSMENT NOTE PT IS ALERT ORIENTED X4, SITTING ON CHAIR AT BED SIDE, LARGE SOFT ABDOMEN NOTED, ONE TO TWO PLUS EDEMA NOTED ON BOTH LOWER EXTREMITIES, ABLE TO SELF REPOSITION AND VERBALIS HIS DEMANDS, CALL LIGHT WITHIN REACH
[2020-02-22 08:50] VITALS: BP 139/105
[2020-02-22] MEDS: ACCU-CHEK COMFORT CURVE STRIP VI SCH ×4 (09:59→21:45)
[2020-02-22] MEDS: POTASSIUM CHL 20 Meq TABLET PO SCH ×2 (10:00→21:45)
[2020-02-22 12:50] VITALS: BP 126/79
[2020-02-22 16:50] VITALS: BP 125/73
--- NOTE | 2020-02-22 18:47 | NUR ---
PT CONTINUE STABLE, CONTINUE MONITORING
--- NOTE | 2020-02-22 19:30 | NUR ---
Report received re. pt currently asleep on L side with tele on BS drawers. Pt allowing RN to replace tele; refusing O2 at this time. Denies pain; no s/sx of resp distress. Morbidly obese. Bed in low position. HOB elevated less than 30 degrees. Nurse call light at bedside. RN will monitor for poss. changes q1h.
[2020-02-22] MEDS: INSULIN LANTUS (GLARGINE) 1 /0.01ml (100units/ml) SC SCH (21:44)
[2020-02-22 22:00] VITALS: BP 137/88
--- NOTE | 2020-02-22 22:46 | NUR ---
At bedside for med neb tx. Pt tolerating well via mask. On RA [id number]%. hr in 80s. RR 22-25.
[2020-02-23] MEDS: InsuLIN REG 1unit/0.01ml Soln (100units/ml) SC SCH ×7 (04:31→23:57)
[2020-02-23 05:00] VITALS: BP 138/63
[2020-02-23] MEDS: FUROSEMIDE 40 MG/4 ML VIAL IV SCH ×2 (06:00→17:04)
[2020-02-23] MEDS: SPIRONOLACTONE 25 MG TAB PO SCH ×2 (06:00→17:04)
[2020-02-23] MEDS: ceFAZolin 1GM/50ML 100 ML IV SCH ×3 (06:00→22:37)
[2020-02-23] MEDS: LEVALBUTEROL HCL 1.25 MG/3 ML NEB NEB SCH ×3 (06:50→23:33)
[2020-02-23] MEDS: ACCU-CHEK COMFORT CURVE STRIP VI SCH ×4 (07:57→22:38)
[2020-02-23 09:00] VITALS: BP 106/41
[2020-02-23] MEDS: POTASSIUM CHL 20 Meq TABLET PO SCH ×2 (10:12→22:38)
[2020-02-23] MEDS: HYDROcodone-ACET 10/325MG TAB PO PRN ×2 (11:36→22:43)
[2020-02-23 12:45] LABS: Calcium 9.3 mg/dL (8.5-10.1); Potassium 3.9 mmol/L (3.5-5.1)
[2020-02-23 12:48] LABS: BUN/Creatinine Ratio 26.7
[2020-02-23 13:00] VITALS: BP 111/45
[2020-02-23 17:00] VITALS: BP 111/68
[2020-02-23 22:00] VITALS: BP 112/65
[2020-02-23] MEDS: INSULIN LANTUS (GLARGINE) 1 /0.01ml (100units/ml) SC SCH (22:42)
[2020-02-24 03:49] VITALS: BP 112/65
[2020-02-24] MEDS: InsuLIN REG 1unit/0.01ml Soln (100units/ml) SC SCH ×3 (04:01→11:18)
[2020-02-24 05:40] VITALS: BP 102/48
--- NOTE | 2020-02-24 06:30 | NUR ---
THIRD TOE ON RIGHT FOOT CLEANSED WITH BETADINE AND LEFT OPEN TO AIR.
[2020-02-24] MEDS: ceFAZolin 1GM/50ML 100 ML IV SCH ×2 (06:36→14:11)
[2020-02-24] MEDS: SPIRONOLACTONE 25 MG TAB PO SCH (06:37)
[2020-02-24] MEDS: FUROSEMIDE 40 MG/4 ML VIAL IV SCH (06:37)
[2020-02-24] MEDS: LEVALBUTEROL HCL 1.25 MG/3 ML NEB NEB SCH ×2 (06:40→14:09)
--- NOTE | 2020-02-24 08:00 | NUR ---
Morning note Patient resting in bed with even and unlabored respirations, no distress noted. Instructed patient on POC, fall precautions and to call for assistance as needed. patient verbalized understanding. Fall precautions in place with call light within reach.
[2020-02-24] MEDS: ACCU-CHEK COMFORT CURVE STRIP VI SCH ×2 (08:24→11:14)
[2020-02-24] MEDS: POTASSIUM CHL 20 Meq TABLET PO SCH (08:24)
[2020-02-24 08:51] VITALS: BP 136/78
--- NOTE | 2020-02-24 09:04 | NUR ---
Respiratory note: PRN MEDNEB CHECK. PT AWAKE ALERT AND RESPONSIVE. PT FOUND ON ROOM AIR HR 72, RR 18 SP02 98%. PT IN NO DISTRESS AT THIS TIME B/S ARE DIMINISHED. NO TX INDICATED AT THIS TIME. PT AWARE TO HAVE RT PAGED IF SOB. Addendum: 02/24/20 at 0910 by JACLYN BROCK RT RT DISREGAR. NOTE MADE ON WRONG PATIENT.
[2020-02-24] MEDS: HYDROcodone-ACET 10/325MG TAB PO PRN (11:17)
--- NOTE | 2020-02-24 11:58 | NUR ---
Nutrition Assessment Est energy needs 5762-1412 kcal (11-13 kcal/kg BW 154.7kg) Est protein needs 76-98g (1-1.3g/kg IBW 75.5kg) Will reassess prn. Addendum: 02/24/20 at [address] Amended: Links added.
[2020-02-24 12:49] VITALS: BP 110/76
--- NOTE | 2020-02-24 15:49 | NUR ---
Discharge wound photo taken per protocol.
--- NOTE | 2020-02-24 16:50 | NUR ---
Discharge Discharge education and paperwork provided to the patient per MD order. Patient verbalized understanding. Instructed patient to pick up attendant discharge prescriptions at [facility]. Patient verbalized understanding. IV removed with aseptic technique, catheter intact. Dressing applied. Patient tolerated well, no trauma to site. Telemonitor removed and returned. Patient reports having all personal belongings. Patient refused wheelchair. Patient ambulated to hospital lobby with a steady gait. Respirations even and unlabored, no distress noted.
== END 2020-02-24 17:00 | disposition home or self-care (01) | DRG 291 ==
LOC: ER 14:26 → TELE-CENTR 15:27
PROVIDERS: ADMIT Internal Medicine Cardiovascular Disease; ATTEND Internal Medicine Cardiovascular Disease
DX: I11.0 Hypertensive heart disease with heart failure (principal); I50.21 Acute systolic (congestive) heart failure; J18.9 Pneumonia, unspecified organism; J44.0 Chronic obstructive pulmonary disease with (acute) lower respiratory infection; Z68.42 Body mass index [BMI] 45.0-49.9, adult; E44.1 Mild protein-calorie malnutrition; E11.40 Type 2 diabetes mellitus with diabetic neuropathy, unspecified; E11.21 Type 2 diabetes mellitus with diabetic nephropathy; E66.9 Obesity, unspecified; E87.6 Hypokalemia; I25.5 Ischemic cardiomyopathy; F17.210 Nicotine dependence, cigarettes, uncomplicated; I25.10 Atherosclerotic heart disease of native coronary artery without angina pectoris; Z86.73 Personal history of transient ischemic attack (TIA), and cerebral infarction without residual deficits; Z91.14 Patient's other noncompliance with medication regimen; Z91.19 Patient's noncompliance with other medical treatment and regimen
CPT/HCPCS: 36415; 71046; 73701; 80048; 80053; 82962; 83880; 84484; 85025; 85610; 85730; 87081; 93005; 94640; 96374; G0378; J0690; J1815

== ENCOUNTER 2020-07-06 22:49 | Emergency (ER) | payer MEDICARE, MEDICAID ==
[~2020-07-06] VITALS: Ht 175.3 cm; Wt 147.4 kg
[~2020-07-06 22:49] MED LIST changes: -ATOR40TA52 PO; -CARV6.25 PO; -FURO40TA4 PO; -HYDR-531 PO; -INSUINJ37 SC; -METF-370 PO
[2020-07-06] MEDS ORDERED: FUROSEMIDE 20 MG/2 ML VIAL IV ONE (23:15)
[2020-07-06 23:52] LABS: Basophils # (auto) 0.1 10 ^3/uL (0-0.2); Basophils % (auto) 0.7 % (0.0-2.0); Eosinophils # (auto) 0.2 10 ^3/uL (0-0.8); Eosinophils % (auto) 3.1 % (0.0-7.0); Hematocrit 37.6 % (41.0-53.0); Hemoglobin 12.5 g/dL (13.5-17.5); Lymphocytes # (auto) 1.5 10 ^3/uL (0.4-5.4); Lymphocytes % (auto) 20.3 % (10.0-50.0); Mean Corpuscular Hemoglobin 29.2 pg (28.0-32.0); Mean Corpuscular Hgb Conc. 33.3 g/dL (32.0-36.0); Mean Corpuscular Volume 87.8 fL (80.0-100.0); Monocytes # (auto) 0.6 10 ^3/uL (0-1.3); Monocytes % (auto) 7.8 % (0.0-12.0); Neutrophils % (auto) 68.1 % (37.0-80.0); Nucleated Red Blood Cells % 0.1 %; Platelet Count (auto) 251 10^3/uL (140-450); Red Blood Cells 4.28 10^6/uL (4.5-5.90); Red Cell Distribution Width 15.1 % (11.8-14.3); White Blood Cell 7.4 10^3/uL (4.4-10.8)
[2020-07-07 00:10] LABS: INR 1.13 (0.9-1.15); Partial Thromboplastin Time 26.6 sec (23.0-31.2)
[2020-07-07 00:11] LABS: Albumin 3.1 g/dL (3.4-5.0); BUN/Creatinine Ratio 26.8; Calcium 8.4 mg/dL (8.5-10.1); Magnesium 1.9 mg/dL (1.6-2.6); Potassium 3.7 mmol/L (3.5-5.1)
[2020-07-07 00:25] LABS: Bilirubin, Total 0.5 mg/dL (0.2-1.0); Total Protein 6.8 g/dL (6.4-8.2)
[2020-07-07 07:46] VITALS: BP 129/73
== END 2020-07-07 08:08 | disposition home or self-care (01) ==
LOC: ER 22:52
DX: I11.0 Hypertensive heart disease with heart failure (principal); I50.33 Acute on chronic diastolic (congestive) heart failure; E11.9 Type 2 diabetes mellitus without complications; F17.210 Nicotine dependence, cigarettes, uncomplicated; E78.5 Hyperlipidemia, unspecified; J44.9 Chronic obstructive pulmonary disease, unspecified; I25.10 Atherosclerotic heart disease of native coronary artery without angina pectoris; Z20.828 Contact with and (suspected) exposure to other viral communicable diseases
CPT/HCPCS: 36415; 71045; 80053; 83735; 83880; 84443; 84484; 85025; 85379; 85610; 85730; 93005; 96374; 99285; C9803; J1940; U0003

== ENCOUNTER 2020-07-08 03:24 | Inpatient (IN) | payer MEDICARE, MEDICAID ==
[~2020-07-08] VITALS: Ht 172.7 cm; Wt 168.6 kg
[2020-07-08] MEDS ORDERED: FUROSEMIDE 20 MG/2 ML VIAL IV ONE (04:00)
[2020-07-08 04:54] LABS: Basophils # (auto) 0 10 ^3/uL (0-0.2); Basophils % (auto) 0.6 % (0.0-2.0); Eosinophils # (auto) 0.2 10 ^3/uL (0-0.8); Eosinophils % (auto) 2.6 % (0.0-7.0); Hematocrit 39.4 % (41.0-53.0); Hemoglobin 13.8 g/dL (13.5-17.5); Lymphocytes # (auto) 1.6 10 ^3/uL (0.4-5.4); Lymphocytes % (auto) 21.6 % (10.0-50.0); Mean Corpuscular Hemoglobin 31.1 pg (28.0-32.0); Mean Corpuscular Volume 88.9 fL (80.0-100.0); Monocytes # (auto) 0.5 10 ^3/uL (0-1.3); Monocytes % (auto) 7.3 % (0.0-12.0); Neutrophils # (auto) 4.9 10 ^3/uL (1.6-8.6); Neutrophils % (auto) 67.9 % (37.0-80.0); Nucleated Red Blood Cells % 0.1 %; Platelet Count (auto) 247 10^3/uL (140-450); Red Blood Cells 4.43 10^6/uL (4.5-5.90); White Blood Cell 7.3 10^3/uL (4.4-10.8)
[2020-07-08 05:06] LABS: Calcium 8.6 mg/dL (8.5-10.1)
[2020-07-08 05:15] LABS: Albumin 3.1 g/dL (3.4-5.0); Bilirubin, Total 0.7 mg/dL (0.2-1.0); INR 1.11 (0.9-1.15); Partial Thromboplastin Time 26.1 sec (23.0-31.2); Total Protein 7.2 g/dL (6.4-8.2)
[2020-07-08] MEDS ORDERED: DOXYCYCLINE 100MG/250ML 250 ML IV ONE (05:15)
[2020-07-08] MEDS ORDERED: DexAMETHasone SOD PHOS 10MG/1ML VIAL INJ IV ONE (05:15)
[2020-07-08] MEDS ORDERED: IOHEXOL 350 MG/ML 100ML IJ ONE (08:04)
[2020-07-08] MEDS ORDERED: MORPHINE SULF INJ 2 MG/ML SYRINGE 1ML IV PRN (08:30)
[2020-07-08] MEDS ORDERED: NITROGLYCERIN 0.4 MG SL TAB SL PRN (08:30)
[2020-07-08] MEDS ORDERED: POTASSIUM CHL 20 Meq TABLET PO SCH (10:00)
[2020-07-08] MEDS: SACUBITRIL-VALSARTAN 24mg/26mg TAB PO SCH ×2 (11:03→22:23)
[2020-07-08] MEDS: DOBUTamine 1000MCG/ML 250 ML IV SCH (11:04)
[2020-07-08 15:30] VITALS: BP 149/109
[2020-07-08] MEDS ORDERED: DEXTROSE (50%) 50ML SYRG IV PRN (15:30)
[2020-07-08] MEDS ORDERED: INFLUENZA QUAD 2020-2021 0.5 ML SYRG IM ONE (15:30)
[2020-07-08 16:25] VITALS: BP 146/94
[2020-07-08] MEDS: ACCU-CHEK COMFORT CURVE STRIP VI SCH ×2 (16:57→22:23)
[2020-07-08] MEDS: InsuLIN REG 1unit/0.01ml Soln (100units/ml) SC SCH (16:57)
[2020-07-08] MEDS ORDERED: InsuLIN REG 1unit/0.01ml Soln (100units/ml) SC SCH (22:00)
[2020-07-08 22:10] VITALS: BP 127/77
[2020-07-08] MEDS: HYDROcodone-ACET 10/325MG TAB PO PRN (22:23)
[2020-07-09 05:30] VITALS: BP 124/65
[2020-07-09] MEDS: ACCU-CHEK COMFORT CURVE STRIP VI SCH (06:49)
[2020-07-09] MEDS: HYDROcodone-ACET 10/325MG TAB PO PRN (06:49)
[2020-07-09] MEDS: InsuLIN REG 1unit/0.01ml Soln (100units/ml) SC SCH (06:50)
[2020-07-09] MEDS: DOBUTamine 1000MCG/ML 250 ML IV SCH (07:10)
[2020-07-09] MEDS ORDERED: FUROSEMIDE 40 MG/4 ML VIAL IV SCH (10:00)
== END 2020-07-09 09:00 | disposition left against medical advice (07) | DRG 291 ==
LOC: ER 03:26 → TELE 08:29 → TELE-CENTR 15:09
PROVIDERS: ADMIT Internal Medicine Cardiovascular Disease; ATTEND Internal Medicine Cardiovascular Disease
DX: I11.0 Hypertensive heart disease with heart failure (principal); J18.9 Pneumonia, unspecified organism; J44.0 Chronic obstructive pulmonary disease with (acute) lower respiratory infection; I50.33 Acute on chronic diastolic (congestive) heart failure; F17.210 Nicotine dependence, cigarettes, uncomplicated; Z20.822 Contact with and (suspected) exposure to COVID-19; Z53.29 Procedure and treatment not carried out because of patient's decision for other reasons; I25.10 Atherosclerotic heart disease of native coronary artery without angina pectoris; Z86.73 Personal history of transient ischemic attack (TIA), and cerebral infarction without residual deficits; Z95.0 Presence of cardiac pacemaker; Z23 Encounter for immunization; E11.65 Type 2 diabetes mellitus with hyperglycemia
CPT/HCPCS: 36415; 71045; 71275; 80053; 82010; 82962; 83735; 83880; 84484; 85025; 85379; 85610; 85730; 87040; 87426; 93005; G0378; J1100; J1815; J3490

== ENCOUNTER 2020-07-10 05:22 | Emergency (ER) | payer MEDICARE, MEDICAID ==
[~2020-07-10] VITALS: Ht 172.7 cm; Wt 145.1 kg
[2020-07-10] MEDS ORDERED: FUROSEMIDE 40 MG/4 ML VIAL IV ONE (07:00)
[2020-07-10] MEDS ORDERED: methylPREDNISolone SOD SUCC 125 MG/2 ML VL IV ONE (07:00)
[2020-07-10] MEDS ORDERED: ALBUTEROL SULF 2.5 MG/0.5ML(0.5%) NEB SOLN NEB ONE (07:00)
[2020-07-10] MEDS ORDERED: IPRATROPIUM BROM 0.5 MG/2.5ML INH SOL NEB ONE (07:00)
[2020-07-10 07:15] VITALS: BP 139/90
[2020-07-10 09:35] LABS: Basophils # (auto) 0.1 10 ^3/uL (0-0.2); Basophils % (auto) 0.6 % (0.0-2.0); Eosinophils # (auto) 0.2 10 ^3/uL (0-0.8); Eosinophils % (auto) 2.4 % (0.0-7.0); Hemoglobin 14.5 g/dL (13.5-17.5); Lymphocytes # (auto) 1.9 10 ^3/uL (0.4-5.4); Lymphocytes % (auto) 21.7 % (10.0-50.0); Mean Corpuscular Hemoglobin 29.5 pg (28.0-32.0); Mean Corpuscular Hgb Conc. 33.8 g/dL (32.0-36.0); Mean Corpuscular Volume 87.4 fL (80.0-100.0); Monocytes # (auto) 0.4 10 ^3/uL (0-1.3); Monocytes % (auto) 4.4 % (0.0-12.0); Neutrophils # (auto) 6.1 10 ^3/uL (1.6-8.6); Neutrophils % (auto) 70.9 % (37.0-80.0); Platelet Count (auto) 320 10^3/uL (140-450); Red Blood Cells 4.92 10^6/uL (4.5-5.90); Red Cell Distribution Width 15.3 % (11.8-14.3); White Blood Cell 8.6 10^3/uL (4.4-10.8)
[2020-07-10 09:44] LABS: Albumin 3.5 g/dL (3.4-5.0); Calcium 8.5 mg/dL (8.5-10.1); Potassium 3.5 mmol/L (3.5-5.1)
[2020-07-10 10:06] LABS: INR 1.08 (0.9-1.15)
== END 2020-07-10 10:55 | disposition home or self-care (01) ==
LOC: ER 05:22
DX: I11.0 Hypertensive heart disease with heart failure (principal); I50.9 Heart failure, unspecified; E11.65 Type 2 diabetes mellitus with hyperglycemia; F12.10 Cannabis abuse, uncomplicated; J44.9 Chronic obstructive pulmonary disease, unspecified; E78.5 Hyperlipidemia, unspecified; I10 Essential (primary) hypertension; F17.210 Nicotine dependence, cigarettes, uncomplicated; I25.2 Old myocardial infarction; Z95.0 Presence of cardiac pacemaker
CPT/HCPCS: 36415; 71045; 80053; 83880; 84484; 85025; 85610; 85730; 93005; 96374; 96375; 99285; J1940; J2930

== ENCOUNTER 2020-07-19 21:29 | Emergency (ER) | payer MEDICARE, MEDICAID ==
[~2020-07-19] VITALS: Ht 175.3 cm; Wt 145.1 kg
[2020-07-19 22:22] LABS: Basophils # (auto) 0.1 10 ^3/uL (0-0.2); Basophils % (auto) 0.6 % (0.0-2.0); Eosinophils # (auto) 0.2 10 ^3/uL (0-0.8); Eosinophils % (auto) 2.3 % (0.0-7.0); Hematocrit 40.7 % (41.0-53.0); Hemoglobin 13.6 g/dL (13.5-17.5); Lymphocytes # (auto) 1.6 10 ^3/uL (0.4-5.4); Lymphocytes % (auto) 17.4 % (10.0-50.0); Mean Corpuscular Hemoglobin 29.4 pg (28.0-32.0); Mean Corpuscular Hgb Conc. 33.5 g/dL (32.0-36.0); Mean Corpuscular Volume 87.8 fL (80.0-100.0); Monocytes # (auto) 0.6 10 ^3/uL (0-1.3); Monocytes % (auto) 6.3 % (0.0-12.0); Neutrophils # (auto) 6.9 10 ^3/uL (1.6-8.6); Neutrophils % (auto) 73.4 % (37.0-80.0); Platelet Count (auto) 232 10^3/uL (140-450); Red Blood Cells 4.63 10^6/uL (4.5-5.90); Red Cell Distribution Width 14.6 % (11.8-14.3); White Blood Cell 9.5 10^3/uL (4.4-10.8)
[2020-07-19 22:28] LABS: INR 1.08 (0.9-1.15); Partial Thromboplastin Time 25.9 sec (23.0-31.2)
[2020-07-19 22:41] LABS: Albumin 3.4 g/dL (3.4-5.0); Calcium 8.3 mg/dL (8.5-10.1); Potassium 3.7 mmol/L (3.5-5.1)
[2020-07-19 22:48] LABS: BUN/Creatinine Ratio 17.9; Total Protein 7.4 g/dL (6.4-8.2)
[2020-07-20] MEDS: FUROSEMIDE 40 MG/4 ML VIAL IV ONE ×2 (01:58→05:16)
[2020-07-20] MEDS: IOHEXOL 350 MG/ML 100ML IJ ONE ×2 (02:00→02:48)
[2020-07-20 05:16] VITALS: BP 136/110
== END 2020-07-20 05:50 | disposition home or self-care (01) ==
LOC: ER 21:29
DX: I11.0 Hypertensive heart disease with heart failure (principal); I50.9 Heart failure, unspecified; E11.9 Type 2 diabetes mellitus without complications; E78.5 Hyperlipidemia, unspecified
CPT/HCPCS: 36415; 71045; 71275; 80053; 83735; 83880; 84484; 85025; 85379; 85610; 85730; 93005; 96374; 96376; 99285; J1940; Q9967

== ENCOUNTER 2020-09-18 20:41 | Emergency (ER) | payer MEDICARE, MEDICAID ==
[~2020-09-18] VITALS: Ht 172.7 cm; Wt 149.7 kg
[2020-09-18] MEDS ORDERED: ASPirin 81 mg TAB PO ONE (21:00)
[2020-09-18 22:16] LABS: Basophils # (auto) 0.1 10 ^3/uL (0-0.2); Basophils % (auto) 0.7 % (0.0-2.0); Eosinophils # (auto) 0.3 10 ^3/uL (0-0.8); Eosinophils % (auto) 3.8 % (0.0-7.0); Hematocrit 40.6 % (41.0-53.0); Hemoglobin 13.6 g/dL (13.5-17.5); Lymphocytes # (auto) 1.8 10 ^3/uL (0.4-5.4); Lymphocytes % (auto) 22.5 % (10.0-50.0); Mean Corpuscular Hemoglobin 29.3 pg (28.0-32.0); Mean Corpuscular Hgb Conc. 33.6 g/dL (32.0-36.0); Mean Corpuscular Volume 87.3 fL (80.0-100.0); Monocytes # (auto) 0.6 10 ^3/uL (0-1.3); Monocytes % (auto) 7.3 % (0.0-12.0); Neutrophils # (auto) 5.3 10 ^3/uL (1.6-8.6); Neutrophils % (auto) 65.7 % (37.0-80.0); Nucleated Red Blood Cells % 0.2 %; Platelet Count (auto) 224 10^3/uL (140-450); Red Blood Cells 4.65 10^6/uL (4.5-5.90); Red Cell Distribution Width 15.5 % (11.8-14.3); White Blood Cell 8.1 10^3/uL (4.4-10.8)
[2020-09-18 22:28] LABS: INR 1.08 (0.9-1.15); Partial Thromboplastin Time 23.9 sec (23.0-31.2)
[2020-09-18 22:36] LABS: Albumin 3.4 g/dL (3.4-5.0); Calcium 8.5 mg/dL (8.5-10.1); Potassium 4.2 mmol/L (3.5-5.1)
[2020-09-18 22:40] LABS: BUN/Creatinine Ratio 21.1; Bilirubin, Total 1.1 mg/dL (0.2-1.0)
[2020-09-19 03:05] VITALS: BP 126/8
== END 2020-09-19 03:26 | disposition home or self-care (01) ==
LOC: ER 20:41
DX: R07.89 Other chest pain (principal); I11.0 Hypertensive heart disease with heart failure; I50.9 Heart failure, unspecified; E11.9 Type 2 diabetes mellitus without complications; E78.5 Hyperlipidemia, unspecified; I25.2 Old myocardial infarction; F17.210 Nicotine dependence, cigarettes, uncomplicated
CPT/HCPCS: 36415; 71045; 80053; 83735; 83880; 84484; 85025; 85610; 85730; 93005

== ENCOUNTER 2020-09-25 00:47 | Inpatient (IN) | payer MEDICARE, MEDICAID ==
[~2020-09-25] VITALS: Ht 172.7 cm; Wt 137.1 kg
[2020-09-25 01:54] LABS: Basophils # (auto) 0.1 10 ^3/uL (0-0.2); Basophils % (auto) 0.8 % (0.0-2.0); Eosinophils # (auto) 0.2 10 ^3/uL (0-0.8); Eosinophils % (auto) 2.8 % (0.0-7.0); Hemoglobin 13.5 g/dL (13.5-17.5); Lymphocytes # (auto) 1.6 10 ^3/uL (0.4-5.4); Lymphocytes % (auto) 20.2 % (10.0-50.0); Mean Corpuscular Volume 87.8 fL (80.0-100.0); Monocytes # (auto) 0.6 10 ^3/uL (0-1.3); Monocytes % (auto) 7.4 % (0.0-12.0); Neutrophils # (auto) 5.4 10 ^3/uL (1.6-8.6); Neutrophils % (auto) 68.8 % (37.0-80.0); Nucleated Red Blood Cells % 0.1 %; Platelet Count (auto) 239 10^3/uL (140-450); Red Blood Cells 4.67 10^6/uL (4.5-5.90); White Blood Cell 7.9 10^3/uL (4.4-10.8)
[2020-09-25] MEDS ORDERED: FUROSEMIDE 20 MG/2 ML VIAL IV ONE (02:15)
[2020-09-25 02:17] LABS: INR 1.18 (0.9-1.15); Partial Thromboplastin Time 27.2 sec (23.0-31.2)
[2020-09-25 02:29] LABS: BUN/Creatinine Ratio 19.8; Magnesium 2.1 mg/dL (1.6-2.6); Potassium 3.8 mmol/L (3.5-5.1)
[2020-09-25 02:34] LABS: Bilirubin, Total 1.2 mg/dL (0.2-1.0); Total Protein 6.9 g/dL (6.4-8.2)
[2020-09-25] MEDS ORDERED: IOHEXOL 350 MG/ML 100ML IJ ONE (05:23)
[2020-09-25] MEDS ORDERED: ONDANSETRON HCL 4 MG/2 ML VIAL IV PRN (08:00)
[2020-09-25] MEDS ORDERED: NITROGLYCERIN 0.4 MG SL TAB SL PRN (08:00)
[2020-09-25] MEDS ORDERED: ACETAMINOPHEN 325 MG TAB PO PRN (08:00)
[2020-09-25] MEDS ORDERED: HYDROcodone-ACET 5/325MG TAB PO PRN (08:00)
[2020-09-25] MEDS ORDERED: MORPHINE SULF INJ 2 MG/ML SYRINGE 1ML IV PRN (08:00)
[2020-09-25] MEDS ORDERED: DOCUSATE SOD 100 MG CAP PO PRN (08:00)
[2020-09-25] MEDS ORDERED: DEXTROSE (50%) 50ML SYRG IV PRN (08:00)
[2020-09-25 08:44] LABS: Cholesterol 116 mg/dL (< 200)
[2020-09-25 08:47] LABS: HDL Cholesterol 21 mg/dL (40-59); LDL Cholesterol 84 mg/dL (< 100); Triglycerides 81 mg/dL (< 150)
[2020-09-25] MEDS: ZINC SULFATE 220mg CAP or TAB PO SCH (09:31)
[2020-09-25] MEDS: ASCORBIC ACID 500 MG TAB PO SCH ×2 (09:31→21:53)
[2020-09-25] MEDS: ASPirin 81 mg TAB PO SCH (09:40)
[2020-09-25] MEDS: FAMOTIDINE 20 MG TAB PO SCH ×2 (09:41→21:55)
[2020-09-25] MEDS: CARVEDILOL 12.5 MG TAB PO SCH ×2 (09:41→21:55)
[2020-09-25] MEDS: POTASSIUM CHL 20 Meq TABLET PO SCH (09:41)
[2020-09-25] MEDS: MULTIPLE VITAMIN TAB PO SCH (09:41)
[2020-09-25] MEDS: INSULIN LANTUS (GLARGINE) 1 /0.01ml (100units/ml) SC SCH ×2 (09:43→22:01)
[2020-09-25] MEDS ORDERED: ENOXAPARIN SOD 150 MG/1 ML SYRINGE SC SCH (10:00)
[2020-09-25 10:51] LABS: Basophils # (auto) 0 10 ^3/uL (0-0.2); Basophils % (auto) 0.6 % (0.0-2.0); Eosinophils # (auto) 0.2 10 ^3/uL (0-0.8); Eosinophils % (auto) 3.2 % (0.0-7.0); Hematocrit 43.1 % (41.0-53.0); Hemoglobin 14.6 g/dL (13.5-17.5); Lymphocytes # (auto) 1.5 10 ^3/uL (0.4-5.4); Lymphocytes % (auto) 21.4 % (10.0-50.0); Mean Corpuscular Hemoglobin 29.7 pg (28.0-32.0); Mean Corpuscular Hgb Conc. 33.8 g/dL (32.0-36.0); Monocytes # (auto) 0.5 10 ^3/uL (0-1.3); Monocytes % (auto) 7.4 % (0.0-12.0); Neutrophils # (auto) 4.8 10 ^3/uL (1.6-8.6); Neutrophils % (auto) 67.4 % (37.0-80.0); Nucleated Red Blood Cells % 0.2 %; Platelet Count (auto) 223 10^3/uL (140-450); Red Cell Distribution Width 15.6 % (11.8-14.3); White Blood Cell 7.1 10^3/uL (4.4-10.8)
[2020-09-25 10:58] LABS: Calcium 8.6 mg/dL (8.5-10.1); Potassium 3.5 mmol/L (3.5-5.1)
[2020-09-25 11:13] LABS: Albumin 3.3 g/dL (3.4-5.0); BUN/Creatinine Ratio 19.1; Bilirubin, Total 1.6 mg/dL (0.2-1.0); Total Protein 7.4 g/dL (6.4-8.2)
[2020-09-25 13:00] VITALS: BP 106/67
[2020-09-25] MEDS: InsuLIN REG 1unit/0.01ml Soln (100units/ml) SC SCH ×2 (14:05→18:27)
[2020-09-25] MEDS: ACCU-CHEK COMFORT CURVE STRIP VI SCH ×3 (14:05→21:56)
[2020-09-25 17:00] VITALS: BP 122/88
[2020-09-25] MEDS: SPIRONOLACTONE 25 MG TAB PO SCH (17:36)
[2020-09-25] MEDS: Glucerna Carbsteady SHAKE Vanilla 8oz PO SCH (18:31)
[2020-09-25] MEDS: SACUBITRIL-VALSARTAN 24mg/26mg TAB PO SCH (21:53)
[2020-09-25] MEDS: ENOXAPARIN SOD 150 MG/1 ML SYRINGE SC SCH (21:54)
[2020-09-25 22:00] VITALS: BP_SYST 110; BP_SYST 127; BP_DIAS 72; BP_DIAS 83
[2020-09-25] MEDS ORDERED: ATORVASTATIN 20 MG TAB PO SCH (22:00)
[2020-09-25] MEDS ORDERED: InsuLIN REG 1unit/0.01ml Soln (100units/ml) SC SCH (22:00)
[2020-09-26 05:00] VITALS: BP 116/71
[2020-09-26] MEDS: SPIRONOLACTONE 25 MG TAB PO SCH (06:10)
[2020-09-26] MEDS: ACCU-CHEK COMFORT CURVE STRIP VI SCH ×2 (06:47→12:13)
[2020-09-26] MEDS: InsuLIN REG 1unit/0.01ml Soln (100units/ml) SC SCH ×2 (06:47→12:15)
[2020-09-26] MEDS: INSULIN LANTUS (GLARGINE) 1 /0.01ml (100units/ml) SC SCH (06:48)
[2020-09-26 07:38] LABS: Basophils # (auto) 0.1 10 ^3/uL (0-0.2); Basophils % (auto) 0.9 % (0.0-2.0); Eosinophils # (auto) 0.3 10 ^3/uL (0-0.8); Eosinophils % (auto) 4.4 % (0.0-7.0); Hematocrit 41.2 % (41.0-53.0); Hemoglobin 13.8 g/dL (13.5-17.5); Lymphocytes # (auto) 1.9 10 ^3/uL (0.4-5.4); Lymphocytes % (auto) 28.6 % (10.0-50.0); Mean Corpuscular Hemoglobin 29.7 pg (28.0-32.0); Mean Corpuscular Hgb Conc. 33.6 g/dL (32.0-36.0); Mean Corpuscular Volume 88.4 fL (80.0-100.0); Monocytes # (auto) 0.6 10 ^3/uL (0-1.3); Monocytes % (auto) 8.9 % (0.0-12.0); Neutrophils # (auto) 3.8 10 ^3/uL (1.6-8.6); Neutrophils % (auto) 57.2 % (37.0-80.0); Nucleated Red Blood Cells % 0.1 %; Platelet Count (auto) 221 10^3/uL (140-450); Red Blood Cells 4.66 10^6/uL (4.5-5.90); White Blood Cell 6.6 10^3/uL (4.4-10.8)
[2020-09-26 07:50] LABS: Albumin 2.8 g/dL (3.4-5.0); Calcium 8.4 mg/dL (8.5-10.1); Potassium 3.9 mmol/L (3.5-5.1)
[2020-09-26 07:54] LABS: BUN/Creatinine Ratio 30.3; Total Protein 6.5 g/dL (6.4-8.2)
[2020-09-26 08:00] VITALS: BP 109/69
[2020-09-26] MEDS: Glucerna Carbsteady SHAKE Vanilla 8oz PO SCH ×2 (08:09→12:30)
[2020-09-26 08:39] VITALS: BP 109/69
[2020-09-26] MEDS: CARVEDILOL 12.5 MG TAB PO SCH (10:00)
[2020-09-26] MEDS ORDERED: SERTRALINE HCL 50 MG TAB PO SCH (10:00)
[2020-09-26] MEDS ORDERED: PANTOPRAZOLE 40 MG TAB PO SCH (10:00)
[2020-09-26] MEDS ORDERED: FUROSEMIDE 100 MG/10ML VIAL IV SCH (10:00)
[2020-09-26] MEDS: SACUBITRIL-VALSARTAN 24mg/26mg TAB PO SCH (10:00)
[2020-09-26] MEDS: ENOXAPARIN SOD 150 MG/1 ML SYRINGE SC SCH (11:15)
[2020-09-26] MEDS: ZINC SULFATE 220mg CAP or TAB PO SCH (12:27)
[2020-09-26] MEDS: MULTIPLE VITAMIN TAB PO SCH (12:28)
[2020-09-26] MEDS: ASCORBIC ACID 500 MG TAB PO SCH (12:28)
[2020-09-26] MEDS: POTASSIUM CHL 20 Meq TABLET PO SCH (12:29)
[2020-09-26] MEDS: ASPirin 81 mg TAB PO SCH (12:29)
[2020-09-26] MEDS: FAMOTIDINE 20 MG TAB PO SCH (12:29)
[2020-09-26 12:53] VITALS: BP 100/76
== END 2020-09-26 13:40 | disposition left against medical advice (07) | DRG 291 ==
LOC: ER 00:47 → EDBD 00:47 → TELE 00:48 → TELE-WESTW 11:46
PROVIDERS: ADMIT Nurse Practitioner Family; ATTEND Internal Medicine
DX: I13.0 Hypertensive heart and chronic kidney disease with heart failure and stage 1 through stage 4 chronic kidney disease, or unspecified chronic kidney disease (principal); I50.43 Acute on chronic combined systolic (congestive) and diastolic (congestive) heart failure; N17.0 Acute kidney failure with tubular necrosis; D68.9 Coagulation defect, unspecified; E44.0 Moderate protein-calorie malnutrition; Z68.42 Body mass index [BMI] 45.0-49.9, adult; Z20.822 Contact with and (suspected) exposure to COVID-19; E11.22 Type 2 diabetes mellitus with diabetic chronic kidney disease; E11.40 Type 2 diabetes mellitus with diabetic neuropathy, unspecified; Z53.29 Procedure and treatment not carried out because of patient's decision for other reasons; E11.65 Type 2 diabetes mellitus with hyperglycemia; E66.01 Morbid (severe) obesity due to excess calories; E78.5 Hyperlipidemia, unspecified; N18.9 Chronic kidney disease, unspecified; E11.51 Type 2 diabetes mellitus with diabetic peripheral angiopathy without gangrene; F17.210 Nicotine dependence, cigarettes, uncomplicated; I25.10 Atherosclerotic heart disease of native coronary artery without angina pectoris; I25.2 Old myocardial infarction; Z91.14 Patient's other noncompliance with medication regimen; Z95.810 Presence of automatic (implantable) cardiac defibrillator
CPT/HCPCS: 36415; 71045; 71275; 80053; 80061; 82962; 83036; 83735; 83880; 84443; 84484; 85025; 85379; 85610; 85730; 87426; 93005; 93306; 93970; 96372; 96374; G0378; J1815

== ENCOUNTER 2020-10-03 08:03 | Emergency (ER) | payer MEDICARE, MEDICAID ==
[~2020-10-03] VITALS: Ht 175.3 cm; Wt 145.1 kg
[2020-10-03] MEDS ORDERED: SODIUM CHLORIDE 0.9% 1,000 ML IV ONE (08:45)
[2020-10-03] MEDS ORDERED: FUROSEMIDE 40 MG/4 ML VIAL IV ONE (09:00)
[2020-10-03] MEDS ORDERED: SPIRONOLACTONE 25 MG TAB PO ONE (09:00)
[2020-10-03] MEDS ORDERED: PANTOPRAZOLE 40 MG TAB PO ONE (09:00)
[2020-10-03] MEDS ORDERED: CARVEDILOL 12.5 MG TAB PO ONE (09:00)
[2020-10-03 09:16] LABS: Basophils # (auto) 0.1 10 ^3/uL (0-0.2); Basophils % (auto) 0.9 % (0.0-2.0); Eosinophils # (auto) 0.2 10 ^3/uL (0-0.8); Eosinophils % (auto) 2.9 % (0.0-7.0); Hematocrit 42.5 % (41.0-53.0); Hemoglobin 14.1 g/dL (13.5-17.5); Lymphocytes # (auto) 1.6 10 ^3/uL (0.4-5.4); Mean Corpuscular Hemoglobin 29.3 pg (28.0-32.0); Mean Corpuscular Volume 88.6 fL (80.0-100.0); Monocytes # (auto) 0.6 10 ^3/uL (0-1.3); Monocytes % (auto) 7.4 % (0.0-12.0); Neutrophils # (auto) 5.9 10 ^3/uL (1.6-8.6); Neutrophils % (auto) 69.8 % (37.0-80.0); Nucleated Red Blood Cells % 0.1 %; Platelet Count (auto) 255 10^3/uL (140-450); Red Cell Distribution Width 16.1 % (11.8-14.3); White Blood Cell 8.4 10^3/uL (4.4-10.8)
[2020-10-03 09:29] LABS: Albumin 3.4 g/dL (3.4-5.0); Calcium 8.7 mg/dL (8.5-10.1); Magnesium 2.3 mg/dL (1.6-2.6); Potassium 4.1 mmol/L (3.5-5.1)
[2020-10-03 09:31] LABS: INR 1.16 (0.9-1.15); Partial Thromboplastin Time 26.8 sec (23.0-31.2)
[2020-10-03 09:40] LABS: BUN/Creatinine Ratio 21.5; Total Protein 7.7 g/dL (6.4-8.2)
[2020-10-03 10:16] LABS: Urine Bacteria FEW /hpf (None Seen); Urine Blood Negative /uL (Negative); Urine Mucus FEW (None Seen); Urine WBC 1 /hpf (0 - 3)
[2020-10-03 12:15] VITALS: BP 131/95
== END 2020-10-03 13:38 | disposition home or self-care (01) ==
LOC: ER 08:03 → EDBD 08:03 → ER 13:38
DX: I11.0 Hypertensive heart disease with heart failure (principal); I50.33 Acute on chronic diastolic (congestive) heart failure; E78.5 Hyperlipidemia, unspecified; I25.2 Old myocardial infarction; E11.65 Type 2 diabetes mellitus with hyperglycemia; F32.9 Major depressive disorder, single episode, unspecified; R60.1 Generalized edema; E66.01 Morbid (severe) obesity due to excess calories; Z68.42 Body mass index [BMI] 45.0-49.9, adult
CPT/HCPCS: 36415; 71045; 71046; 80053; 81001; 83735; 83880; 84443; 84484; 85025; 85610; 85730; 93005; 96361; 96374; 99285; J1940; J7030

== ENCOUNTER 2020-10-15 03:28 | Inpatient (IN) | payer MEDICARE, MEDICAID ==
[~2020-10-15] VITALS: Ht 172.7 cm; Wt 181.0 kg
[~2020-10-15 03:28] MED LIST changes: -SERT-274 PO; +SERT50TA19 PO
[2020-10-15 04:03] LABS: Basophils # (auto) 0.1 10 ^3/uL (0-0.2); Basophils % (auto) 0.7 % (0.0-2.0); Eosinophils # (auto) 0.3 10 ^3/uL (0-0.8); Eosinophils % (auto) 3.6 % (0.0-7.0); Hematocrit 41.8 % (41.0-53.0); Hemoglobin 13.6 g/dL (13.5-17.5); Lymphocytes # (auto) 1.5 10 ^3/uL (0.4-5.4); Lymphocytes % (auto) 16.8 % (10.0-50.0); Mean Corpuscular Hemoglobin 28.8 pg (28.0-32.0); Mean Corpuscular Hgb Conc. 32.6 g/dL (32.0-36.0); Mean Corpuscular Volume 88.4 fL (80.0-100.0); Monocytes # (auto) 0.8 10 ^3/uL (0-1.3); Monocytes % (auto) 9.2 % (0.0-12.0); Neutrophils # (auto) 6.2 10 ^3/uL (1.6-8.6); Neutrophils % (auto) 69.7 % (37.0-80.0); Nucleated Red Blood Cells % 0.1 %; Platelet Count (auto) 240 10^3/uL (140-450); Red Blood Cells 4.73 10^6/uL (4.5-5.90); Red Cell Distribution Width 16.4 % (11.8-14.3); White Blood Cell 8.8 10^3/uL (4.4-10.8)
[2020-10-15 04:22] LABS: Albumin 3.2 g/dL (3.4-5.0); Anion Gap 7 (5-15); Blood Urea Nitrogen 31 mg/dL (7-18); Calcium 8.6 mg/dL (8.5-10.1); Carbon Dioxide 23 mmol/L (21-32); Chloride 109 mmol/L (98-107); Glucose 143 mg/dL (74-106); Potassium 4.5 mmol/L (3.5-5.1); Sodium 139 mmol/L (136-145)
[2020-10-15 04:28] LABS: Alanine Aminotransferase 28 U/L (16-61); Alkaline Phosphatase 135 U/L (45-117); Aspartate Aminotransferase 30 U/L (15-37); BUN/Creatinine Ratio 24.8; Bilirubin, Total 0.9 mg/dL (0.2-1.0); GFR African American 78 mL/min; GFR Non-African American 64 mL/min; Total Protein 7.4 g/dL (6.4-8.2)
[2020-10-15 04:47] LABS: INR 1.13 (0.9-1.15); Partial Thromboplastin Time 27.1 sec (23.0-31.2)
[2020-10-15] MEDS ORDERED: FUROSEMIDE 40 MG/4 ML VIAL IV ONE (06:30)
[2020-10-15] MEDS ORDERED: HYDROcodone-ACET 10/325MG TAB PO ONE (07:30)
[2020-10-15 07:32] LABS: Urine Bacteria NONE SEEN /hpf (None Seen); Urine Blood Negative /uL (Negative); Urine Hyaline Cast FEW /lpf (0 - 2); Urine WBC 1 /hpf (0 - 3)
[2020-10-15] MEDS ORDERED: LORazepam 2MG/ML-1ML VIAL ONE (09:32)
[2020-10-15] MEDS ORDERED: MORPHINE SULF INJ 2 MG/ML SYRINGE 1ML IV PRN ×2 (10:45→11:15)
[2020-10-15] MEDS ORDERED: NITROGLYCERIN 0.4 MG SL TAB SL PRN (10:45)
[2020-10-15] MEDS ORDERED: DEXTROSE (50%) 50ML SYRG IV PRN (11:15)
[2020-10-15] MEDS ORDERED: traMADol HCL 50 MG TAB PO PRN (11:15)
[2020-10-15] MEDS ORDERED: ONDANSETRON HCL 4 MG/2 ML VIAL IV PRN (11:15)
[2020-10-15] MEDS ORDERED: ACETAMINOPHEN 500 MG TAB PO PRN (11:15)
[2020-10-15 11:26] LABS: Alcohol, Urine < 3.0 mg/dL (0-10); Amphetamine Screen, Urine POSITIVE (NEGATIVE); Barbiturate Scree,Urine NEGATIVE (NEGATIVE); Benzodiazephine Screen, Urine NEGATIVE (NEGATIVE); Cannabinoid Screen, Urine NEGATIVE (NEGATIVE); Cocaine Screen, Urine NEGATIVE (NEGATIVE); Opiate Scree,Urine NEGATIVE (NEGATIVE); Phencyclidine Screen, Urine NEGATIVE (NEGATIVE)
[2020-10-15] MEDS: InsuLIN REG 1unit/0.01ml Soln (100units/ml) SC SCH ×2 (11:30→17:35)
[2020-10-15] MEDS: ACCU-CHEK COMFORT CURVE STRIP VI SCH ×2 (11:43→17:00)
[2020-10-15 12:56] VITALS: BP 130/106
[2020-10-15 13:00] VITALS: BP 131/99
[2020-10-15] MEDS ORDERED: CLINDAMYCIN 600MG IV 50 ML IV SCH (14:00)
[2020-10-15 16:38] VITALS: BP 124/100
[2020-10-15] MEDS ORDERED: SPIRONOLACTONE 25 MG TAB PO SCH (17:00)
[2020-10-15] MEDS ORDERED: CARVEDILOL 3.125 MG TAB PO SCH (22:00)
[2020-10-15] MEDS ORDERED: APIXABAN 2.5 MG TAB PO SCH (22:00)
[2020-10-15] MEDS ORDERED: DOXYCYCLINE 100 MG TAB/CAP PO SCH (22:00)
[2020-10-15] MEDS ORDERED: ATORVASTATIN 20 MG TAB PO SCH (22:00)
[2020-10-15] MEDS ORDERED: TEMAZEPAM 15 MG CAP PO SCH (22:00)
[2020-10-15] MEDS ORDERED: SACUBITRIL-VALSARTAN 24mg/26mg TAB PO SCH (22:00)
[2020-10-16] MEDS ORDERED: FUROSEMIDE 40 MG/4 ML VIAL IV SCH ×2 (10:00)
[2020-10-16] MEDS ORDERED: POTASSIUM CHL 20 Meq TABLET PO SCH (10:00)
[2020-10-16] MEDS ORDERED: INSULIN LANTUS (GLARGINE) 1 /0.01ml (100units/ml) SC SCH (10:00)
[2020-10-16] MEDS ORDERED: SERTRALINE HCL 50 MG TAB PO SCH (10:00)
== END 2020-10-15 18:10 | disposition left against medical advice (07) | DRG 292 ==
LOC: EDBD 03:28 → EDUNIT# 03:28 → ER 03:34 → TELE 10:45 → TELE-CENTR 12:27
PROVIDERS: ADMIT Internal Medicine; ATTEND Internal Medicine
DX: I11.0 Hypertensive heart disease with heart failure (principal); Z68.44 Body mass index [BMI] 60.0-69.9, adult; L97.909 Non-pressure chronic ulcer of unspecified part of unspecified lower leg with unspecified severity; Z20.822 Contact with and (suspected) exposure to COVID-19; I50.43 Acute on chronic combined systolic (congestive) and diastolic (congestive) heart failure; E11.65 Type 2 diabetes mellitus with hyperglycemia; E66.01 Morbid (severe) obesity due to excess calories; E78.5 Hyperlipidemia, unspecified; E11.40 Type 2 diabetes mellitus with diabetic neuropathy, unspecified; I25.10 Atherosclerotic heart disease of native coronary artery without angina pectoris; J45.909 Unspecified asthma, uncomplicated; E11.21 Type 2 diabetes mellitus with diabetic nephropathy; Z53.29 Procedure and treatment not carried out because of patient's decision for other reasons; I25.2 Old myocardial infarction; Z79.4 Long term (current) use of insulin; Z79.01 Long term (current) use of anticoagulants; Z82.49 Family history of ischemic heart disease and other diseases of the circulatory system; Z83.3 Family history of diabetes mellitus; Z82.3 Family history of stroke; Z87.891 Personal history of nicotine dependence; Z91.19 Patient's noncompliance with other medical treatment and regimen; Z95.0 Presence of cardiac pacemaker; Z89.421 Acquired absence of other right toe(s)
CPT/HCPCS: 36415; 71045; 80053; 80307; 81001; 82962; 83880; 84484; 85025; 85610; 85730; 87081; 87426; 93005; 96365; 99291; G0378; J1815; J3490

== ENCOUNTER 2020-11-02 04:16 | Inpatient (IN) | payer MEDICARE, MEDICAID ==
[~2020-11-02] VITALS: Ht 172.7 cm; Wt 170.0 kg
[~2020-11-02 04:16] MED LIST changes: -CEPH500C PO; -SACU1TAB PO
[2020-11-02] MEDS ORDERED: FUROSEMIDE 40 MG/4 ML VIAL ONE (04:26)
[2020-11-02] MEDS ORDERED: FUROSEMIDE 40 MG/4 ML VIAL IV ONE ×2 (04:45→10:45)
[2020-11-02 05:18] LABS: Basophils # (auto) 0.1 10 ^3/uL (0-0.2); Basophils % (auto) 0.7 % (0.0-2.0); Eosinophils # (auto) 0.3 10 ^3/uL (0-0.8); Eosinophils % (auto) 3.4 % (0.0-7.0); Hemoglobin 13.6 g/dL (13.5-17.5); Lymphocytes # (auto) 1.4 10 ^3/uL (0.4-5.4); Lymphocytes % (auto) 17.7 % (10.0-50.0); Mean Corpuscular Hemoglobin 28.1 pg (28.0-32.0); Mean Corpuscular Hgb Conc. 32.2 g/dL (32.0-36.0); Mean Corpuscular Volume 87.3 fL (80.0-100.0); Monocytes # (auto) 0.8 10 ^3/uL (0-1.3); Monocytes % (auto) 9.9 % (0.0-12.0); Neutrophils # (auto) 5.2 10 ^3/uL (1.6-8.6); Neutrophils % (auto) 68.3 % (37.0-80.0); Nucleated Red Blood Cells % 0.1 %; Red Blood Cells 4.81 10^6/uL (4.5-5.90); Red Cell Distribution Width 16.6 % (11.8-14.3); White Blood Cell 7.7 10^3/uL (4.4-10.8)
[2020-11-02 05:37] LABS: Calcium 8.3 mg/dL (8.5-10.1); Magnesium 2.3 mg/dL (1.6-2.6); Potassium 4.8 mmol/L (3.5-5.1)
[2020-11-02 05:39] LABS: INR 1.26 (0.9-1.15); Partial Thromboplastin Time 28.4 sec (23.0-31.2)
[2020-11-02 05:43] LABS: BUN/Creatinine Ratio 23.3; Bilirubin, Total 1.2 mg/dL (0.2-1.0); Total Protein 6.7 g/dL (6.4-8.2)
[2020-11-02] MEDS ORDERED: IOHEXOL 350 MG/ML 100ML IJ ONE (07:23)
[2020-11-02 08:38] LABS: Urine Bacteria FEW /hpf (None Seen); Urine Blood Negative /uL (Negative); Urine Specific Gravity 1.006 (1.001-1.035); Urine WBC 1 /hpf (0 - 3)
[2020-11-02] MEDS ORDERED: NITROGLYCERIN 0.4 MG SL TAB SL PRN ×2 (09:30→10:15)
[2020-11-02] MEDS ORDERED: MORPHINE SULFATE INJECTION 2 MG/ML SYRG IV PRN ×3 (09:30→10:15)
[2020-11-02 09:43] VITALS: BP 148/101
[2020-11-02] MEDS ORDERED: IPRATROPIUM BROM 0.5 MG/2.5ML INH SOL NEB ONE (10:15)
[2020-11-02] MEDS ORDERED: LORazepam 0.5 MG TAB PO PRN (10:15)
[2020-11-02] MEDS ORDERED: FUROSEMIDE 100 MG/10ML VIAL IV ONE (10:15)
[2020-11-02] MEDS ORDERED: DOCUSATE SOD 100 MG CAP PO PRN (10:15)
[2020-11-02] MEDS ORDERED: DEXTROSE (50%) 50ML SYRG IV PRN (10:15)
[2020-11-02] MEDS ORDERED: ACETAMINOPHEN 325 MG TAB PO PRN (10:15)
[2020-11-02] MEDS ORDERED: cefTRIAXone 1GM/50ML D5W 50 ML IV ONE (10:15)
[2020-11-02] MEDS ORDERED: hydrALAZINE HCL 20 MG/ML VL IV PRN (10:15)
[2020-11-02] MEDS ORDERED: ONDANSETRON HCL 4 MG/2 ML VIAL IV PRN (10:15)
[2020-11-02] MEDS ORDERED: ALUM & MAG HYDROX-SIMETH LIQ(MAALOX) 30 ML PO PRN (10:15)
[2020-11-02] MEDS ORDERED: CLINDAMYCIN 600MG IV 50 ML IV ONE (10:15)
[2020-11-02] MEDS ORDERED: ALBUTEROL SULF 2.5 MG/0.5ML(0.5%) NEB SOLN NEB ONE (10:15)
[2020-11-02] MEDS ORDERED: APIXABAN 2.5 MG TAB PO ONE (10:30)
[2020-11-02] MEDS ORDERED: CARVEDILOL 3.125 MG TAB PO ONE (10:30)
[2020-11-02] MEDS ORDERED: SACUBITRIL-VALSARTAN 24mg/26mg TAB PO ONE (10:30)
[2020-11-02] MEDS ORDERED: SERTRALINE HCL 50 MG TAB PO ONE ×2 (10:30→10:45)
[2020-11-02] MEDS ORDERED: PANTOPRAZOLE 40 MG/10 ML VIAL INJ IV ONE (10:45)
[2020-11-02 11:00] LABS: Cholesterol 107 mg/dL (< 200); HDL Cholesterol 21 mg/dL (40-59); LDL Cholesterol 82 mg/dL (< 100); Triglycerides 65 mg/dL (< 150)
[2020-11-02] MEDS: InsuLIN REG 1unit/0.01ml Soln (100units/ml) SC SCH ×3 (11:30→23:04)
[2020-11-02 11:46] VITALS: BP 148/93
[2020-11-02] MEDS: ACCU-CHEK COMFORT CURVE STRIP VI SCH ×3 (12:20→21:59)
[2020-11-02 13:00] VITALS: BP 148/93
[2020-11-02] MEDS: methylPREDNISolone SOD SUCC 40 MG/ML VL IV SCH ×2 (14:00→21:57)
[2020-11-02] MEDS ORDERED: IPRATROPIUM BROM 0.5 MG/2.5ML INH SOL NEB SCH (14:00)
[2020-11-02] MEDS: CLINDAMYCIN 600MG IV 50 ML IV SCH ×2 (14:00→22:01)
[2020-11-02] MEDS: SODIUM CHLOR 0.9% PF (SALINE LOCK) 10ML VIAL/SYR IV SCH ×2 (14:00→20:11)
[2020-11-02 17:00] VITALS: BP 99/74
[2020-11-02] MEDS: FUROSEMIDE 40 MG/4 ML VIAL IV SCH (18:00)
[2020-11-02] MEDS: HYDROcodone-ACET 5/325MG TAB PO PRN (20:10)
[2020-11-02] MEDS: SACUBITRIL-VALSARTAN 24mg/26mg TAB PO SCH (21:57)
[2020-11-02] MEDS: TEMAZEPAM 15 MG CAP PO SCH (21:57)
[2020-11-02] MEDS: APIXABAN 2.5 MG TAB PO SCH (21:58)
[2020-11-02] MEDS: CARVEDILOL 3.125 MG TAB PO SCH (21:59)
[2020-11-02 22:00] VITALS: BP 101/57
[2020-11-02] MEDS: NEOMYCIN-BACITRACIN-POLYM 15GM TOP OINT TOP SCH (23:04)
[2020-11-03 05:19] VITALS: BP 126/77
[2020-11-03] MEDS: CLINDAMYCIN 600MG IV 50 ML IV SCH ×3 (05:19→21:06)
[2020-11-03] MEDS: SODIUM CHLOR 0.9% PF (SALINE LOCK) 10ML VIAL/SYR IV SCH ×3 (05:21→20:44)
[2020-11-03] MEDS: methylPREDNISolone SOD SUCC 40 MG/ML VL IV SCH ×3 (05:21→20:44)
[2020-11-03] MEDS: HYDROcodone-ACET 5/325MG TAB PO PRN ×2 (05:21→20:44)
[2020-11-03] MEDS: ACCU-CHEK COMFORT CURVE STRIP VI SCH ×4 (06:09→21:11)
[2020-11-03] MEDS: FUROSEMIDE 40 MG/4 ML VIAL IV SCH ×2 (06:21→17:38)
[2020-11-03] MEDS: InsuLIN REG 1unit/0.01ml Soln (100units/ml) SC SCH ×4 (06:25→22:14)
[2020-11-03 07:28] LABS: Basophils # (auto) 0 10 ^3/uL (0-0.2); Basophils % (auto) 0.1 % (0.0-2.0); Eosinophils # (auto) 0 10 ^3/uL (0-0.8); Hematocrit 46.1 % (41.0-53.0); Hemoglobin 15.2 g/dL (13.5-17.5); Lymphocytes # (auto) 0.4 10 ^3/uL (0.4-5.4); Lymphocytes % (auto) 5.6 % (10.0-50.0); Mean Corpuscular Hemoglobin 28.5 pg (28.0-32.0); Mean Corpuscular Volume 86.2 fL (80.0-100.0); Monocytes # (auto) 0.1 10 ^3/uL (0-1.3); Monocytes % (auto) 1.3 % (0.0-12.0); Neutrophils # (auto) 7.3 10 ^3/uL (1.6-8.6); Red Blood Cells 5.35 10^6/uL (4.5-5.90); Red Cell Distribution Width 16.6 % (11.8-14.3); White Blood Cell 7.8 10^3/uL (4.4-10.8)
[2020-11-03 07:34] LABS: INR 1.34 (0.9-1.15); Partial Thromboplastin Time 29.9 sec (23.0-31.2)
[2020-11-03 07:45] LABS: Chloride 102 mmol/L (98-107); Sodium 136 mmol/L (136-145)
[2020-11-03] MEDS: ALBUTEROL SULF 2.5 MG/0.5ML(0.5%) NEB SOLN NEB PRN ×2 (07:46→19:20)
[2020-11-03] MEDS: IPRATROPIUM BROM 0.5 MG/2.5ML INH SOL NEB PRN ×2 (07:47→19:20)
[2020-11-03 08:06] LABS: Alanine Aminotransferase 29 U/L (16-61); Alkaline Phosphatase 132 U/L (45-117); Anion Gap 9 (5-15); Aspartate Aminotransferase 23 U/L (15-37); BUN/Creatinine Ratio 20.8; Bilirubin, Total 1.6 mg/dL (0.2-1.0); Blood Urea Nitrogen 22 mg/dL (7-18); Calcium 8.3 mg/dL (8.5-10.1); Carbon Dioxide 25 mmol/L (21-32); GFR African American 94 mL/min; GFR Non-African American 78 mL/min; Glucose 198 mg/dL (74-106); Magnesium 2.1 mg/dL (1.6-2.6); Phosphorus 4.3 mg/dL (2.5-4.90)
[2020-11-03 08:35] VITALS: BP 121/80
[2020-11-03] MEDS: cefTRIAXone 1GM/50ML D5W 50 ML IV SCH (09:55)
[2020-11-03] MEDS: PANTOPRAZOLE 40 MG/10 ML VIAL INJ IV SCH (09:56)
[2020-11-03] MEDS: CARVEDILOL 3.125 MG TAB PO SCH ×2 (09:56→22:11)
[2020-11-03] MEDS: SACUBITRIL-VALSARTAN 24mg/26mg TAB PO SCH ×2 (09:56→20:45)
[2020-11-03] MEDS: SERTRALINE HCL 50 MG TAB PO SCH (09:57)
[2020-11-03] MEDS: POTASSIUM CHL 20 Meq TABLET PO SCH (09:57)
[2020-11-03] MEDS: APIXABAN 2.5 MG TAB PO SCH ×2 (09:57→21:05)
[2020-11-03] MEDS: NEOMYCIN-BACITRACIN-POLYM 15GM TOP OINT TOP SCH (09:58)
[2020-11-03] MEDS ORDERED: SERTRALINE HCL 50 MG TAB PO SCH (10:00)
[2020-11-03 12:34] VITALS: BP 119/82
[2020-11-03] MEDS ORDERED: LACTULOSE 20Gm/30ML SOLN PO ONE (13:15)
[2020-11-03 16:34] VITALS: BP 127/83
[2020-11-03] MEDS: TEMAZEPAM 15 MG CAP PO SCH (21:05)
[2020-11-03 22:00] VITALS: BP 114/76
[2020-11-04] MEDS: NEOMYCIN-BACITRACIN-POLYM 15GM TOP OINT TOP SCH ×3 (00:34→21:54)
[2020-11-04] MEDS: HYDROcodone-ACET 5/325MG TAB PO PRN ×2 (03:25→15:16)
[2020-11-04 05:00] VITALS: BP 110/84
[2020-11-04] MEDS: methylPREDNISolone SOD SUCC 40 MG/ML VL IV SCH ×3 (05:46→21:52)
[2020-11-04] MEDS: FUROSEMIDE 40 MG/4 ML VIAL IV SCH ×2 (05:47→17:58)
[2020-11-04] MEDS: ACCU-CHEK COMFORT CURVE STRIP VI SCH ×4 (05:48→21:54)
[2020-11-04] MEDS: SODIUM CHLOR 0.9% PF (SALINE LOCK) 10ML VIAL/SYR IV SCH ×3 (05:48→21:51)
[2020-11-04] MEDS: CLINDAMYCIN 600MG IV 50 ML IV SCH ×3 (06:10→21:50)
[2020-11-04] MEDS: InsuLIN REG 1unit/0.01ml Soln (100units/ml) SC SCH ×4 (07:17→21:55)
[2020-11-04 07:47] LABS: Urine WBC None Seen /hpf (0 - 3)
[2020-11-04 07:59] LABS: Urine Bacteria NONE SEEN /hpf (None Seen); Urine Blood Negative /uL (Negative); Urine Specific Gravity 1.006 (1.001-1.035)
[2020-11-04 08:29] LABS: Alcohol, Urine < 3.0 mg/dL (0-10); Amphetamine Screen, Urine POSITIVE (NEGATIVE); Barbiturate Scree,Urine NEGATIVE (NEGATIVE); Benzodiazephine Screen, Urine NEGATIVE (NEGATIVE); Cannabinoid Screen, Urine NEGATIVE (NEGATIVE); Cocaine Screen, Urine NEGATIVE (NEGATIVE); Opiate Scree,Urine NEGATIVE (NEGATIVE); Phencyclidine Screen, Urine NEGATIVE (NEGATIVE)
[2020-11-04 09:00] VITALS: BP 126/92
[2020-11-04] MEDS: cefTRIAXone 1GM/50ML D5W 50 ML IV SCH (09:08)
[2020-11-04] MEDS: PANTOPRAZOLE 40 MG/10 ML VIAL INJ IV SCH (09:08)
[2020-11-04] MEDS: APIXABAN 2.5 MG TAB PO SCH ×2 (09:09→21:52)
[2020-11-04] MEDS: SACUBITRIL-VALSARTAN 24mg/26mg TAB PO SCH ×2 (09:09→21:53)
[2020-11-04] MEDS: CARVEDILOL 3.125 MG TAB PO SCH ×2 (09:09→21:51)
[2020-11-04] MEDS: SERTRALINE HCL 50 MG TAB PO SCH (09:10)
[2020-11-04] MEDS: POTASSIUM CHL 20 Meq TABLET PO SCH (09:10)
[2020-11-04 13:00] VITALS: BP 113/72
[2020-11-04 16:42] VITALS: BP 124/87
[2020-11-04] MEDS: TEMAZEPAM 15 MG CAP PO SCH (21:53)
[2020-11-04 22:00] VITALS: BP 130/81
[2020-11-05 04:41] VITALS: BP 130/79
[2020-11-05] MEDS: CLINDAMYCIN 600MG IV 50 ML IV SCH ×3 (05:55→22:38)
[2020-11-05] MEDS: SODIUM CHLOR 0.9% PF (SALINE LOCK) 10ML VIAL/SYR IV SCH ×3 (05:55→22:38)
[2020-11-05] MEDS: FUROSEMIDE 40 MG/4 ML VIAL IV SCH ×2 (05:55→18:07)
[2020-11-05] MEDS: methylPREDNISolone SOD SUCC 40 MG/ML VL IV SCH ×3 (05:56→22:38)
[2020-11-05] MEDS: ACCU-CHEK COMFORT CURVE STRIP VI SCH ×4 (06:24→22:00)
[2020-11-05] MEDS: InsuLIN REG 1unit/0.01ml Soln (100units/ml) SC SCH ×4 (06:24→22:35)
[2020-11-05 08:35] VITALS: BP 130/79
[2020-11-05 09:00] VITALS: BP 127/94
[2020-11-05] MEDS: cefTRIAXone 1GM/50ML D5W 50 ML IV SCH (09:09)
[2020-11-05] MEDS: PANTOPRAZOLE 40 MG/10 ML VIAL INJ IV SCH (09:44)
[2020-11-05] MEDS: POTASSIUM CHL 20 Meq TABLET PO SCH (09:45)
[2020-11-05] MEDS: SERTRALINE HCL 50 MG TAB PO SCH (09:45)
[2020-11-05] MEDS: APIXABAN 2.5 MG TAB PO SCH ×2 (09:45→22:37)
[2020-11-05] MEDS: NEOMYCIN-BACITRACIN-POLYM 15GM TOP OINT TOP SCH ×2 (09:45→22:36)
[2020-11-05] MEDS: SACUBITRIL-VALSARTAN 24mg/26mg TAB PO SCH ×2 (09:45→22:37)
[2020-11-05] MEDS: CARVEDILOL 3.125 MG TAB PO SCH ×2 (09:46→22:37)
[2020-11-05] MEDS ORDERED: DEXTROSE (50%) 50ML SYRG IV PRN (10:15)
[2020-11-05] MEDS: HYDROcodone-ACET 5/325MG TAB PO PRN ×2 (10:40→23:50)
[2020-11-05 13:00] VITALS: BP 141/86
[2020-11-05 17:00] VITALS: BP 104/57
[2020-11-05 22:00] VITALS: BP 119/77
[2020-11-05] MEDS: TEMAZEPAM 15 MG CAP PO SCH (22:37)
[2020-11-06 05:00] VITALS: BP 126/90
[2020-11-06] MEDS: InsuLIN REG 1unit/0.01ml Soln (100units/ml) SC SCH ×4 (06:30→21:48)
[2020-11-06] MEDS: ACCU-CHEK COMFORT CURVE STRIP VI SCH ×4 (06:35→22:04)
[2020-11-06] MEDS: FUROSEMIDE 40 MG/4 ML VIAL IV SCH ×2 (06:40→18:33)
[2020-11-06] MEDS: CLINDAMYCIN 600MG IV 50 ML IV SCH ×3 (06:40→22:07)
[2020-11-06] MEDS: SODIUM CHLOR 0.9% PF (SALINE LOCK) 10ML VIAL/SYR IV SCH ×3 (06:40→22:06)
[2020-11-06] MEDS: methylPREDNISolone SOD SUCC 40 MG/ML VL IV SCH ×3 (06:41→22:06)
[2020-11-06 09:00] VITALS: BP 129/78
[2020-11-06] MEDS: cefTRIAXone 1GM/50ML D5W 50 ML IV SCH (09:56)
[2020-11-06] MEDS: PANTOPRAZOLE 40 MG/10 ML VIAL INJ IV SCH (09:56)
[2020-11-06] MEDS: APIXABAN 2.5 MG TAB PO SCH ×2 (09:58→22:06)
[2020-11-06] MEDS: SERTRALINE HCL 50 MG TAB PO SCH (09:58)
[2020-11-06] MEDS: CARVEDILOL 3.125 MG TAB PO SCH ×2 (09:58→22:06)
[2020-11-06] MEDS: NEOMYCIN-BACITRACIN-POLYM 15GM TOP OINT TOP SCH ×2 (09:58→22:05)
[2020-11-06] MEDS: POTASSIUM CHL 20 Meq TABLET PO SCH (09:58)
[2020-11-06] MEDS: SACUBITRIL-VALSARTAN 24mg/26mg TAB PO SCH ×2 (09:58→22:06)
[2020-11-06 13:00] VITALS: BP 132/83
[2020-11-06 16:00] VITALS: BP 123/73
[2020-11-06 17:28] LABS: BUN/Creatinine Ratio 26.7; Potassium 4.3 mmol/L (3.5-5.1)
[2020-11-06 22:00] VITALS: BP 130/80
[2020-11-06] MEDS ORDERED: INSULIN LANTUS (GLARGINE) 1 /0.01ml (100units/ml) SC SCH (22:00)
[2020-11-06] MEDS: TEMAZEPAM 15 MG CAP PO SCH (22:05)
[2020-11-06] MEDS: HYDROcodone-ACET 5/325MG TAB PO PRN (22:20)
[2020-11-07 05:00] VITALS: BP 151/106
[2020-11-07] MEDS: InsuLIN REG 1unit/0.01ml Soln (100units/ml) SC SCH (06:48)
[2020-11-07] MEDS: ACCU-CHEK COMFORT CURVE STRIP VI SCH (06:49)
[2020-11-07] MEDS: SODIUM CHLOR 0.9% PF (SALINE LOCK) 10ML VIAL/SYR IV SCH (06:56)
[2020-11-07] MEDS: FUROSEMIDE 40 MG/4 ML VIAL IV SCH (06:56)
[2020-11-07] MEDS: CLINDAMYCIN 600MG IV 50 ML IV SCH (06:56)
[2020-11-07] MEDS: methylPREDNISolone SOD SUCC 40 MG/ML VL IV SCH (06:57)
[2020-11-07 09:00] VITALS: BP 132/94
[2020-11-07] MEDS: SERTRALINE HCL 50 MG TAB PO SCH (10:04)
[2020-11-07] MEDS: POTASSIUM CHL 20 Meq TABLET PO SCH (10:04)
[2020-11-07] MEDS: SACUBITRIL-VALSARTAN 24mg/26mg TAB PO SCH (10:04)
[2020-11-07] MEDS: NEOMYCIN-BACITRACIN-POLYM 15GM TOP OINT TOP SCH (10:04)
[2020-11-07] MEDS: cefTRIAXone 1GM/50ML D5W 50 ML IV SCH (10:04)
[2020-11-07] MEDS: APIXABAN 2.5 MG TAB PO SCH (10:04)
[2020-11-07] MEDS: CARVEDILOL 3.125 MG TAB PO SCH (10:05)
[2020-11-07] MEDS: PANTOPRAZOLE 40 MG/10 ML VIAL INJ IV SCH (10:05)
[2020-11-07 10:16] VITALS: BP 132/94
== END 2020-11-07 10:35 | disposition home or self-care (01) | DRG 291 ==
LOC: EDBD 04:16 → ER 04:16 → TELE 09:21 → TELE-EAST 11:42
PROVIDERS: ADMIT Hospitalist; ATTEND Family Medicine
PROC: 5A09357 Assistance with Respiratory Ventilation, Less than 24 Consecutive Hours, Continuous Positive Airway Pressure (ICD-10-PCS; principal; 2020-11-02)
PROC: 5A09457 Assistance with Respiratory Ventilation, 24-96 Consecutive Hours, Continuous Positive Airway Pressure (ICD-10-PCS; 2020-11-05)
DX: I11.0 Hypertensive heart disease with heart failure (principal); J96.21 Acute and chronic respiratory failure with hypoxia; J44.1 Chronic obstructive pulmonary disease with (acute) exacerbation; L03.311 Cellulitis of abdominal wall; E44.0 Moderate protein-calorie malnutrition; Z68.44 Body mass index [BMI] 60.0-69.9, adult; J20.9 Acute bronchitis, unspecified; E66.01 Morbid (severe) obesity due to excess calories; E78.5 Hyperlipidemia, unspecified; E11.65 Type 2 diabetes mellitus with hyperglycemia; I25.5 Ischemic cardiomyopathy; I50.82 Biventricular heart failure; Z20.822 Contact with and (suspected) exposure to COVID-19; F15.90 Other stimulant use, unspecified, uncomplicated; F17.200 Nicotine dependence, unspecified, uncomplicated; I25.2 Old myocardial infarction; Z79.01 Long term (current) use of anticoagulants; Z79.4 Long term (current) use of insulin; Z86.718 Personal history of other venous thrombosis and embolism; Z82.3 Family history of stroke; Z91.14 Patient's other noncompliance with medication regimen; Z95.810 Presence of automatic (implantable) cardiac defibrillator; Z83.3 Family history of diabetes mellitus; Z82.49 Family history of ischemic heart disease and other diseases of the circulatory system; Z71.6 Tobacco abuse counseling; I50.23 Acute on chronic systolic (congestive) heart failure
CPT/HCPCS: 36415; 36600; 71045; 71275; 74176; 80048; 80053; 80061; 80307; 81001; 82306; 82728; 82805; 82962; 83036; 83735; 83880; 84100; 84443; 84484; 85025; 85379; 85610; 85730; 87040; 87081; 87086; 87426; 93005; 94640; 94660; 96374; 96375; 99291; C9113; G0378; J0696; J1815; J3490

== ENCOUNTER 2020-11-15 03:00 | Emergency (ER) | payer MEDICARE, MEDICAID ==
[~2020-11-15] VITALS: Ht 172.7 cm; Wt 136.1 kg
[2020-11-15 05:33] LABS: Basophils # (auto) 0 10 ^3/uL (0-0.2); Basophils % (auto) 0.5 % (0.0-2.0); Eosinophils # (auto) 0.2 10 ^3/uL (0-0.8); Eosinophils % (auto) 2.1 % (0.0-7.0); Hematocrit 41.1 % (41.0-53.0); Hemoglobin 13.8 g/dL (13.5-17.5); Lymphocytes # (auto) 1.5 10 ^3/uL (0.4-5.4); Lymphocytes % (auto) 18.7 % (10.0-50.0); Mean Corpuscular Hgb Conc. 33.6 g/dL (32.0-36.0); Mean Corpuscular Volume 86.6 fL (80.0-100.0); Monocytes # (auto) 0.8 10 ^3/uL (0-1.3); Monocytes % (auto) 9.4 % (0.0-12.0); Neutrophils # (auto) 5.8 10 ^3/uL (1.6-8.6); Neutrophils % (auto) 69.3 % (37.0-80.0); Nucleated Red Blood Cells % 0.1 %; Platelet Count (auto) 181 10^3/uL (140-450); Red Blood Cells 4.75 10^6/uL (4.5-5.90); Red Cell Distribution Width 16.6 % (11.8-14.3); White Blood Cell 8.3 10^3/uL (4.4-10.8)
[2020-11-15 05:47] LABS: INR 1.08 (0.9-1.15); Partial Thromboplastin Time 26.5 sec (23.0-31.2)
[2020-11-15 05:50] LABS: Albumin 3.4 g/dL (3.4-5.0); Calcium 8.4 mg/dL (8.5-10.1); Magnesium 2.3 mg/dL (1.6-2.6); Potassium 3.7 mmol/L (3.5-5.1)
[2020-11-15 05:56] LABS: Bilirubin, Total 1.2 mg/dL (0.2-1.0); Total Protein 7.1 g/dL (6.4-8.2)
[2020-11-15 07:19] LABS: Urine Amorphous Crystal FEW /hpf (None Seen); Urine Bacteria MOD /hpf (None Seen); Urine Blood Negative /uL (Negative); Urine Hyaline Cast FEW /lpf (0 - 2); Urine Mucus FEW (None Seen); Urine Specific Gravity 1.032 (1.001-1.035); Urine WBC 6 /hpf (0 - 3)
[2020-11-15] MEDS ORDERED: FUROSEMIDE 40 MG/4 ML VIAL IV ONE (08:30)
[2020-11-15 08:43] LABS: Alcohol, Urine < 3.0 mg/dL (0-10); Amphetamine Screen, Urine POSITIVE (NEGATIVE); Barbiturate Scree,Urine NEGATIVE (NEGATIVE); Benzodiazephine Screen, Urine NEGATIVE (NEGATIVE); Cannabinoid Screen, Urine NEGATIVE (NEGATIVE); Cocaine Screen, Urine NEGATIVE (NEGATIVE); Opiate Scree,Urine NEGATIVE (NEGATIVE); Phencyclidine Screen, Urine NEGATIVE (NEGATIVE)
[2020-11-15 09:38] VITALS: BP 146/104
[2020-11-15] MEDS ORDERED: SPIRONOLACTONE 25 MG TAB PO ONE (14:30)
== END 2020-11-15 15:42 | disposition home or self-care (01) ==
LOC: EDBD 03:00 → ER 03:00
DX: R41.82 Altered mental status, unspecified (principal); F15.10 Other stimulant abuse, uncomplicated; E11.65 Type 2 diabetes mellitus with hyperglycemia; I11.0 Hypertensive heart disease with heart failure; I50.9 Heart failure, unspecified; I25.2 Old myocardial infarction; J45.909 Unspecified asthma, uncomplicated; Z87.891 Personal history of nicotine dependence
CPT/HCPCS: 36415; 36600; 70450; 71045; 74176; 80053; 80307; 81001; 82805; 83605; 83690; 83735; 83880; 84484; 85025; 85379; 85610; 85730; 87040; 93005; 96374; 99285; J1940

== ENCOUNTER 2021-03-18 16:51 | Inpatient (IN) | payer OTHER, MEDICAID ==
[~2021-03-18] VITALS: Ht 172.7 cm; Wt 155.6 kg
[2021-03-18 18:09] LABS: Basophils # (auto) 0 10 ^3/uL (0-0.2); Basophils % (auto) 0.7 % (0.0-2.0); Eosinophils # (auto) 0.2 10 ^3/uL (0-0.8); Eosinophils % (auto) 2.4 % (0.0-7.0); Hematocrit 38.7 % (41.0-53.0); Hemoglobin 12.6 g/dL (13.5-17.5); Lymphocytes # (auto) 0.6 10 ^3/uL (0.4-5.4); Mean Corpuscular Hemoglobin 29.3 pg (28.0-32.0); Mean Corpuscular Hgb Conc. 32.5 g/dL (32.0-36.0); Monocytes # (auto) 0.5 10 ^3/uL (0-1.3); Neutrophils # (auto) 5.6 10 ^3/uL (1.6-8.6); Neutrophils % (auto) 81.9 % (37.0-80.0); Red Blood Cells 4.29 10^6/uL (4.5-5.90); Red Cell Distribution Width 15.2 % (11.8-14.3); White Blood Cell 6.9 10^3/uL (4.4-10.8)
[2021-03-18 18:30] LABS: Albumin 2.7 g/dL (3.4-5.0); BUN/Creatinine Ratio 15.6; Calcium 8.1 mg/dL (8.5-10.1); Potassium 3.1 mmol/L (3.5-5.1)
[2021-03-18 18:35] LABS: Bilirubin, Total 1.2 mg/dL (0.2-1.0); Total Protein 6.8 g/dL (6.4-8.2)
[2021-03-18] MEDS ORDERED: ACETAMINOPHEN 325 MG TAB PO PRN (23:30)
[2021-03-18] MEDS ORDERED: HYDROcodone-ACET 5/325MG TAB PO PRN (23:30)
[2021-03-18] MEDS ORDERED: DOCUSATE SOD 100 MG CAP PO PRN (23:30)
[2021-03-18] MEDS ORDERED: NITROGLYCERIN 0.4 MG SL TAB SL PRN (23:30)
[2021-03-18] MEDS ORDERED: ALBUMIN 25% 50 ML IV ONE (23:30)
[2021-03-18] MEDS ORDERED: MORPHINE SULFATE INJECTION 2 MG/ML SYRG IV PRN (23:30)
[2021-03-18] MEDS ORDERED: ONDANSETRON HCL 4 MG/2 ML VIAL IV PRN (23:30)
[2021-03-18] MEDS ORDERED: DEXTROSE (50%) 50ML SYRG IV PRN (23:30)
[2021-03-18] MEDS ORDERED: POTASSIUM CHL 20 Meq TABLET PO ONE (23:30)
[2021-03-19 01:30] VITALS: BP 113/101
[2021-03-19] MEDS: POTASSIUM CHL 20MEQ/100ML 100 ML IV SCH ×2 (01:54→04:50)
[2021-03-19] MEDS ORDERED: METF-370 PO (03:31)
[2021-03-19] MEDS ORDERED: FURO1TAB31 PO (03:31)
[2021-03-19] MEDS: SODIUM CHLOR 0.9% PF (SALINE LOCK) 10ML VIAL/SYR IV SCH ×2 (04:50→14:02)
[2021-03-19 05:32] VITALS: BP 154/110
[2021-03-19 05:38] LABS: Basophils # (auto) 0 10 ^3/uL (0-0.2); Basophils % (auto) 0.4 % (0.0-2.0); Eosinophils # (auto) 0.2 10 ^3/uL (0-0.8); Eosinophils % (auto) 2.5 % (0.0-7.0); Hematocrit 40.8 % (41.0-53.0); Hemoglobin 13.3 g/dL (13.5-17.5); Lymphocytes # (auto) 0.9 10 ^3/uL (0.4-5.4); Lymphocytes % (auto) 13.6 % (10.0-50.0); Mean Corpuscular Hemoglobin 29.8 pg (28.0-32.0); Mean Corpuscular Hgb Conc. 32.7 g/dL (32.0-36.0); Mean Corpuscular Volume 91.2 fL (80.0-100.0); Monocytes # (auto) 0.4 10 ^3/uL (0-1.3); Monocytes % (auto) 6.5 % (0.0-12.0); Neutrophils # (auto) 5.4 10 ^3/uL (1.6-8.6); Nucleated Red Blood Cells % 0.2 %; Red Blood Cells 4.47 10^6/uL (4.5-5.90); Red Cell Distribution Width 15.7 % (11.8-14.3); White Blood Cell 6.9 10^3/uL (4.4-10.8)
[2021-03-19 05:59] LABS: Calcium 8.4 mg/dL (8.5-10.1); Potassium 3.3 mmol/L (3.5-5.1)
[2021-03-19 06:04] LABS: BUN/Creatinine Ratio 15.4; Bilirubin, Total 1.8 mg/dL (0.2-1.0); Total Protein 7.1 g/dL (6.4-8.2)
[2021-03-19] MEDS: ACCU-CHEK COMFORT CURVE STRIP VI SCH ×2 (06:32→12:35)
[2021-03-19] MEDS: InsuLIN REG 1unit/0.01ml Soln (100units/ml) SC SCH ×2 (06:41→12:22)
[2021-03-19 08:49] VITALS: BP 133/75
[2021-03-19] MEDS ORDERED: ENOXAPARIN SOD 40 MG/0.4 ML SYRINGE SC SCH (10:00)
[2021-03-19] MEDS ORDERED: PANTOPRAZOLE 40 MG/10 ML VIAL INJ IV SCH (10:00)
[2021-03-19] MEDS ORDERED: ZINC SULFATE 220mg CAP or TAB PO SCH (10:00)
[2021-03-19] MEDS ORDERED: FUROSEMIDE 40 MG/4 ML VIAL IV SCH ×2 (10:00→22:00)
[2021-03-19] MEDS ORDERED: MULTIPLE VITAMIN TAB PO SCH (10:00)
[2021-03-19] MEDS ORDERED: ASCORBIC ACID 500 MG TAB PO SCH (10:00)
[2021-03-19] MEDS ORDERED: POTASSIUM CHL 20 Meq TABLET PO ONE (12:45)
[2021-03-19 13:00] VITALS: BP 93/69
[2021-03-19 15:28] VITALS: BP 133/75
[2021-03-19 16:05] LABS: Amphetamine Screen, Urine POSITIVE (NEGATIVE); Barbiturate Scree,Urine NEGATIVE (NEGATIVE); Benzodiazephine Screen, Urine NEGATIVE (NEGATIVE); Cannabinoid Screen, Urine NEGATIVE (NEGATIVE); Cocaine Screen, Urine NEGATIVE (NEGATIVE); Opiate Scree,Urine NEGATIVE (NEGATIVE); Phencyclidine Screen, Urine NEGATIVE (NEGATIVE)
[2021-03-19] MEDS ORDERED: InsuLIN REG 1unit/0.01ml Soln (100units/ml) SC SCH (22:00)
== END 2021-03-19 18:00 | disposition home or self-care (01) | DRG 291 ==
LOC: EDBD 16:51 → ER 16:51 → TELE 23:29 → TELE-WESTW 03-19 01:41
PROVIDERS: ADMIT Nurse Practitioner Family; ATTEND Internal Medicine
DX: I11.0 Hypertensive heart disease with heart failure (principal); G93.41 Metabolic encephalopathy; Z68.43 Body mass index [BMI] 50.0-59.9, adult; I50.43 Acute on chronic combined systolic (congestive) and diastolic (congestive) heart failure; E87.6 Hypokalemia; E88.09 Other disorders of plasma-protein metabolism, not elsewhere classified; E66.01 Morbid (severe) obesity due to excess calories; E11.65 Type 2 diabetes mellitus with hyperglycemia; F15.90 Other stimulant use, unspecified, uncomplicated; J45.909 Unspecified asthma, uncomplicated; Z20.822 Contact with and (suspected) exposure to COVID-19; I25.10 Atherosclerotic heart disease of native coronary artery without angina pectoris; I25.2 Old myocardial infarction; Z87.891 Personal history of nicotine dependence; Z91.14 Patient's other noncompliance with medication regimen; Z95.0 Presence of cardiac pacemaker
CPT/HCPCS: 36415; 70450; 71045; 80053; 80307; 82962; 83036; 83880; 84484; 85025; 87426; 93005; 96361; 96374; 96375; 99291; C9113; G0378; J1815; J3480

== ENCOUNTER 2021-04-06 08:24 | Observation (INO) | payer OTHER, MEDICAID ==
[~2021-04-06] VITALS: Ht 175.3 cm; Wt 164.6 kg
[~2021-04-06 08:24] MED LIST changes: +FURO1TAB31 PO; +METF-370 PO
[2021-04-06] MEDS ORDERED: FUROSEMIDE 40 MG/4 ML VIAL IV ONE (09:00)
[2021-04-06 09:20] LABS: Basophils # (auto) 0.1 10 ^3/uL (0-0.2); Basophils % (auto) 0.9 % (0.0-2.0); Eosinophils # (auto) 0.2 10 ^3/uL (0-0.8); Eosinophils % (auto) 2.3 % (0.0-7.0); Hematocrit 38.6 % (41.0-53.0); Hemoglobin 12.8 g/dL (13.5-17.5); Lymphocytes # (auto) 1.3 10 ^3/uL (0.4-5.4); Mean Corpuscular Hemoglobin 29.4 pg (28.0-32.0); Mean Corpuscular Hgb Conc. 33.2 g/dL (32.0-36.0); Mean Corpuscular Volume 88.5 fL (80.0-100.0); Monocytes # (auto) 0.6 10 ^3/uL (0-1.3); Monocytes % (auto) 8.1 % (0.0-12.0); Neutrophils # (auto) 5.3 10 ^3/uL (1.6-8.6); Neutrophils % (auto) 70.7 % (37.0-80.0); Nucleated Red Blood Cells % 0.1 %; Red Blood Cells 4.37 10^6/uL (4.5-5.90); Red Cell Distribution Width 15.1 % (11.8-14.3); White Blood Cell 7.5 10^3/uL (4.4-10.8)
[2021-04-06 09:37] LABS: Albumin 2.8 g/dL (3.4-5.0); Calcium 8.6 mg/dL (8.5-10.1); Potassium 3.8 mmol/L (3.5-5.1)
[2021-04-06 09:42] LABS: BUN/Creatinine Ratio 21.1; Bilirubin, Total 1.1 mg/dL (0.2-1.0); Total Protein 6.4 g/dL (6.4-8.2)
[2021-04-06] MEDS ORDERED: DEXTROSE (50%) 50ML SYRG IV PRN (10:15)
[2021-04-06] MEDS ORDERED: NITROGLYCERIN 0.4 MG SL TAB SL PRN (10:15)
[2021-04-06] MEDS ORDERED: MORPHINE SULFATE INJECTION 2 MG/ML SYRG IV PRN (10:15)
[2021-04-06] MEDS: ACCU-CHEK COMFORT CURVE STRIP VI SCH ×3 (12:18→22:00)
[2021-04-06] MEDS: InsuLIN REG 1unit/0.01ml Soln (100units/ml) SC SCH ×3 (12:18→21:08)
[2021-04-06 15:57] LABS: Alcohol, Urine < 3.0 mg/dL (0-10); Amphetamine Screen, Urine POSITIVE (NEGATIVE); Barbiturate Scree,Urine NEGATIVE (NEGATIVE); Benzodiazephine Screen, Urine NEGATIVE (NEGATIVE); Cannabinoid Screen, Urine NEGATIVE (NEGATIVE); Cocaine Screen, Urine NEGATIVE (NEGATIVE); Phencyclidine Screen, Urine NEGATIVE (NEGATIVE)
[2021-04-06 16:04] LABS: Opiate Scree,Urine NEGATIVE (NEGATIVE)
[2021-04-06] MEDS: SPIRONOLACTONE 25 MG TAB PO SCH (17:43)
[2021-04-06] MEDS: FUROSEMIDE 40 MG/4 ML VIAL IV SCH (17:44)
[2021-04-06] MEDS: APIXABAN 2.5 MG TAB PO SCH (21:00)
[2021-04-06] MEDS: CARVEDILOL 3.125 MG TAB PO SCH (21:00)
[2021-04-06 21:57] VITALS: BP 132/97
[2021-04-06 22:00] VITALS: BP 132/97
[2021-04-06] MEDS ORDERED: ATORVASTATIN 20 MG TAB PO SCH (22:00)
[2021-04-06] MEDS ORDERED: ENTRESTO PO SCH (22:00)
[2021-04-06] MEDS ORDERED: TEMAZEPAM 15 MG CAP PO SCH (22:00)
[2021-04-06] MEDS: ACETAMINOPHEN 325 MG TAB PO PRN ×3 (23:09→23:13)
[2021-04-07 05:00] VITALS: BP 114/89
[2021-04-07] MEDS: InsuLIN REG 1unit/0.01ml Soln (100units/ml) SC SCH ×2 (05:16→12:44)
[2021-04-07] MEDS: SPIRONOLACTONE 25 MG TAB PO SCH (05:17)
[2021-04-07] MEDS: FUROSEMIDE 40 MG/4 ML VIAL IV SCH (05:17)
[2021-04-07] MEDS: ACCU-CHEK COMFORT CURVE STRIP VI SCH ×2 (05:17→11:30)
[2021-04-07 09:00] VITALS: BP 129/94
[2021-04-07] MEDS ORDERED: POTASSIUM CHL 10 Meq TABLET PO SCH (10:00)
[2021-04-07] MEDS ORDERED: FAMOTIDINE 20 MG TAB PO SCH (10:00)
[2021-04-07] MEDS ORDERED: SERTRALINE HCL 50 MG TAB PO SCH (10:00)
[2021-04-07] MEDS ORDERED: INSULIN LANTUS (GLARGINE) 1 /0.01ml (100units/ml) SC SCH (10:00)
[2021-04-07] MEDS: APIXABAN 2.5 MG TAB PO SCH (10:22)
[2021-04-07] MEDS: CARVEDILOL 3.125 MG TAB PO SCH (10:23)
[2021-04-07] MEDS ORDERED: SACUBITRIL-VALSARTAN 24mg/26mg TAB PO SCH (10:30)
[2021-04-07] MEDS ORDERED: FUROSEMIDE 20 MG/2 ML VIAL IV ONE (11:15)
[2021-04-07] MEDS ORDERED: POTA1TAB61 PO (11:25)
[2021-04-07] MEDS ORDERED: FURO1TAB31 PO (11:25)
[2021-04-07 13:00] VITALS: BP 118/89
[2021-04-07 15:09] VITALS: BP 123/76
== END 2021-04-07 16:45 | disposition home or self-care (01) ==
LOC: EDBD 08:24 → ER 08:24 → TELE 10:06 → TELE-CENTR 21:57
PROVIDERS: ADMIT Nurse Practitioner Acute Care; ATTEND Internal Medicine
DX: J96.20 Acute and chronic respiratory failure, unspecified whether with hypoxia or hypercapnia (principal); I11.0 Hypertensive heart disease with heart failure; I50.43 Acute on chronic combined systolic (congestive) and diastolic (congestive) heart failure; I42.9 Cardiomyopathy, unspecified; E11.9 Type 2 diabetes mellitus without complications; J44.9 Chronic obstructive pulmonary disease, unspecified; E78.5 Hyperlipidemia, unspecified; F15.10 Other stimulant abuse, uncomplicated; F12.10 Cannabis abuse, uncomplicated; Z91.19 Patient's noncompliance with other medical treatment and regimen; Z91.14 Patient's other noncompliance with medication regimen; Z79.4 Long term (current) use of insulin; Z72.0 Tobacco use; Z79.01 Long term (current) use of anticoagulants; Z76.5 Malingerer [conscious simulation]
CPT/HCPCS: 36415; 36600; 71045; 80053; 80307; 82805; 82962; 83880; 84484; 85025; 87081; 87426; 93005; 96372; 96374; 96376; 99291; G0378; J1815; J1940

== ENCOUNTER 2021-05-01 14:41 | Inpatient (IN) | payer OTHER, MEDICAID ==
[~2021-05-01] VITALS: Ht 172.7 cm; Wt 179.7 kg
[~2021-05-01 14:41] MED LIST changes: +POTA1TAB61 PO
[2021-05-01] MEDS ORDERED: SODIUM CHLORIDE 0.9% 1,000 ML IV ONE (16:30)
[2021-05-01 17:14] LABS: Basophils # (auto) 0 10 ^3/uL (0-0.2); Basophils % (auto) 0.8 % (0.0-2.0); Eosinophils # (auto) 0.2 10 ^3/uL (0-0.8); Eosinophils % (auto) 2.7 % (0.0-7.0); Hematocrit 39.2 % (41.0-53.0); Hemoglobin 12.8 g/dL (13.5-17.5); Lymphocytes # (auto) 1.2 10 ^3/uL (0.4-5.4); Lymphocytes % (auto) 19.2 % (10.0-50.0); Mean Corpuscular Hemoglobin 28.2 pg (28.0-32.0); Mean Corpuscular Hgb Conc. 32.7 g/dL (32.0-36.0); Mean Corpuscular Volume 86.2 fL (80.0-100.0); Monocytes # (auto) 0.6 10 ^3/uL (0-1.3); Monocytes % (auto) 10.3 % (0.0-12.0); Nucleated Red Blood Cells % 0.1 %; Red Blood Cells 4.55 10^6/uL (4.5-5.90); Red Cell Distribution Width 16.1 % (11.8-14.3)
[2021-05-01 17:43] LABS: INR 1.32 (0.9-1.15); Partial Thromboplastin Time 27.9 sec (23.6-33.0)
[2021-05-01 19:04] LABS: Albumin 2.4 g/dL (3.4-5.0); Anion Gap 8 (5-15); Calcium 8.3 mg/dL (8.5-10.1); Carbon Dioxide 23 mmol/L (21-32); Chloride 105 mmol/L (98-107); Glucose 164 mg/dL (74-106); Magnesium 2.3 mg/dL (1.6-2.6); Potassium 3.7 mmol/L (3.5-5.1); Sodium 136 mmol/L (136-145)
[2021-05-01 19:06] LABS: Alanine Aminotransferase 37 U/L (16-61); Aspartate Aminotransferase 36 U/L (15-37); BUN/Creatinine Ratio 17.6; Blood Urea Nitrogen 27 mg/dL (7-18); GFR African American 62 mL/min; GFR Non-African American 51 mL/min
[2021-05-01 19:08] LABS: Alkaline Phosphatase 136 U/L (45-117); Bilirubin, Total 2.2 mg/dL (0.2-1.0); Total Protein 6.4 g/dL (6.4-8.2)
[2021-05-01] MEDS ORDERED: ALBUMIN 25% 100 ML IV ONE (21:15)
[2021-05-01] MEDS ORDERED: FUROSEMIDE 40 MG/4 ML VIAL IV ONE (21:15)
[2021-05-01] MEDS ORDERED: DEXTROSE (50%) 50ML SYRG IV PRN (21:15)
[2021-05-01] MEDS ORDERED: methylPREDNISolone SOD SUCC 125 MG/2 ML VL IV ONE (21:15)
[2021-05-01] MEDS ORDERED: ACETAMINOPHEN 325 MG TAB PO PRN (21:15)
[2021-05-01] MEDS ORDERED: DOCUSATE SOD 100 MG CAP PO PRN (21:15)
[2021-05-01] MEDS ORDERED: ONDANSETRON HCL 4 MG/2 ML VIAL IV PRN (21:15)
[2021-05-01] MEDS: SODIUM CHLOR 0.9% PF (SALINE LOCK) 10ML VIAL/SYR IV SCH (21:49)
[2021-05-01] MEDS: ACCU-CHEK COMFORT CURVE STRIP VI SCH (21:50)
[2021-05-01] MEDS: CARVEDILOL 3.125 MG TAB PO SCH (22:00)
[2021-05-01] MEDS: APIXABAN 2.5 MG TAB PO SCH (22:00)
[2021-05-01] MEDS ORDERED: NITROGLYCERIN 0.4 MG SL TAB SL PRN (22:15)
[2021-05-01] MEDS ORDERED: MORPHINE SULFATE INJECTION 2 MG/ML SYRG IV PRN (22:15)
[2021-05-01] MEDS: InsuLIN REG 1unit/0.01ml Soln (100units/ml) SC SCH (22:15)
[2021-05-01 22:47] LABS: Urine Bacteria NONE SEEN /hpf (None Seen); Urine Blood Negative /uL (Negative); Urine Hyaline Cast MOD /lpf (0 - 2); Urine Mucus FEW (None Seen); Urine WBC 3 /hpf (0 - 3)
[2021-05-01] MEDS: HYDROcodone-ACET 5/325MG TAB PO PRN (23:18)
[2021-05-02 02:23] VITALS: BP 103/82
[2021-05-02] MEDS ORDERED: FURO40TA4 PO (02:41)
[2021-05-02] MEDS ORDERED: POTA-264 (02:41)
[2021-05-02 05:30] VITALS: BP 114/83
[2021-05-02] MEDS: ACCU-CHEK COMFORT CURVE STRIP VI SCH ×4 (06:07→22:04)
[2021-05-02] MEDS: SODIUM CHLOR 0.9% PF (SALINE LOCK) 10ML VIAL/SYR IV SCH ×3 (06:07→22:03)
[2021-05-02] MEDS: InsuLIN REG 1unit/0.01ml Soln (100units/ml) SC SCH ×4 (06:11→22:05)
[2021-05-02 08:35] LABS: Basophils # (auto) 0 10 ^3/uL (0-0.2); Basophils % (auto) 0.1 % (0.0-2.0); Eosinophils # (auto) 0 10 ^3/uL (0-0.8); Eosinophils % (auto) 0.1 % (0.0-7.0); Hemoglobin 14.2 g/dL (13.5-17.5); Lymphocytes # (auto) 0.5 10 ^3/uL (0.4-5.4); Lymphocytes % (auto) 8.5 % (10.0-50.0); Mean Corpuscular Hemoglobin 28.4 pg (28.0-32.0); Mean Corpuscular Hgb Conc. 32.9 g/dL (32.0-36.0); Mean Corpuscular Volume 86.4 fL (80.0-100.0); Monocytes # (auto) 0.1 10 ^3/uL (0-1.3); Neutrophils # (auto) 5.7 10 ^3/uL (1.6-8.6); Neutrophils % (auto) 90.3 % (37.0-80.0); Nucleated Red Blood Cells % 0.3 %; Red Blood Cells 4.98 10^6/uL (4.5-5.90); Red Cell Distribution Width 15.4 % (11.8-14.3); White Blood Cell 6.3 10^3/uL (4.4-10.8)
[2021-05-02 08:44] LABS: Albumin 3.1 g/dL (3.4-5.0); Calcium 9.1 mg/dL (8.5-10.1); Potassium 4.3 mmol/L (3.5-5.1)
[2021-05-02 08:50] LABS: BUN/Creatinine Ratio 20.4; Bilirubin, Total 2.2 mg/dL (0.2-1.0); Total Protein 7.4 g/dL (6.4-8.2)
[2021-05-02 09:00] VITALS: BP 151/89
[2021-05-02] MEDS: APIXABAN 2.5 MG TAB PO SCH ×2 (09:40→22:04)
[2021-05-02] MEDS: methylPREDNISolone SOD SUCC 40 MG/ML VL IV SCH ×2 (09:41→22:04)
[2021-05-02] MEDS: FUROSEMIDE 40 MG/4 ML VIAL IV SCH (09:44)
[2021-05-02] MEDS: CARVEDILOL 3.125 MG TAB PO SCH ×2 (09:45→22:03)
[2021-05-02] MEDS ORDERED: FAMOTIDINE INJECTION 40 MG in SODIUM CHL 0.9% 100 ML IV SCH (10:00)
[2021-05-02 17:25] VITALS: BP 133/97
[2021-05-02 22:23] VITALS: BP 121/102
[2021-05-03] MEDS: HYDROcodone-ACET 5/325MG TAB PO PRN ×2 (02:09→21:04)
[2021-05-03 05:30] VITALS: BP 144/103
[2021-05-03] MEDS: SODIUM CHLOR 0.9% PF (SALINE LOCK) 10ML VIAL/SYR IV SCH ×3 (06:21→22:12)
[2021-05-03] MEDS: ACCU-CHEK COMFORT CURVE STRIP VI SCH ×4 (06:26→22:12)
[2021-05-03] MEDS: InsuLIN REG 1unit/0.01ml Soln (100units/ml) SC SCH ×4 (06:27→22:27)
[2021-05-03 09:12] VITALS: BP 130/99
[2021-05-03] MEDS: CARVEDILOL 3.125 MG TAB PO SCH ×2 (09:37→22:12)
[2021-05-03] MEDS: FUROSEMIDE 40 MG/4 ML VIAL IV SCH (09:37)
[2021-05-03] MEDS: APIXABAN 2.5 MG TAB PO SCH ×2 (09:37→22:12)
[2021-05-03] MEDS: methylPREDNISolone SOD SUCC 40 MG/ML VL IV SCH ×2 (09:37→22:16)
[2021-05-03 13:00] VITALS: BP 122/85
[2021-05-03 17:30] VITALS: BP 129/98
[2021-05-03 20:00] VITALS: BP 125/92
[2021-05-03 22:00] VITALS: BP 125/92
[2021-05-03] MEDS: ATORVASTATIN 20 MG TAB PO SCH (22:10)
[2021-05-04 05:30] VITALS: BP 132/88
[2021-05-04] MEDS: SODIUM CHLOR 0.9% PF (SALINE LOCK) 10ML VIAL/SYR IV SCH ×3 (06:16→22:07)
[2021-05-04] MEDS: ACCU-CHEK COMFORT CURVE STRIP VI SCH ×4 (06:31→22:01)
[2021-05-04] MEDS: InsuLIN REG 1unit/0.01ml Soln (100units/ml) SC SCH ×4 (06:32→22:05)
[2021-05-04 08:39] VITALS: BP 156/91
[2021-05-04] MEDS: FUROSEMIDE 40 MG/4 ML VIAL IV SCH (10:20)
[2021-05-04] MEDS: methylPREDNISolone SOD SUCC 40 MG/ML VL IV SCH ×2 (10:27→21:59)
[2021-05-04] MEDS: CARVEDILOL 3.125 MG TAB PO SCH ×2 (10:27→22:00)
[2021-05-04] MEDS: APIXABAN 2.5 MG TAB PO SCH ×2 (10:28→22:00)
[2021-05-04 13:31] VITALS: BP 124/83
[2021-05-04] MEDS: DOBUTamine 1000MCG/ML 250 ML IV SCH (14:56)
[2021-05-04 17:00] VITALS: BP 118/53
[2021-05-04 21:57] VITALS: BP 118/55
[2021-05-04] MEDS: ATORVASTATIN 20 MG TAB PO SCH (21:59)
[2021-05-04] MEDS: HYDROcodone-ACET 5/325MG TAB PO PRN (21:59)
[2021-05-05 04:47] VITALS: BP 129/72
[2021-05-05] MEDS: SODIUM CHLOR 0.9% PF (SALINE LOCK) 10ML VIAL/SYR IV SCH ×3 (06:24→22:45)
[2021-05-05] MEDS: ACCU-CHEK COMFORT CURVE STRIP VI SCH ×4 (06:24→22:47)
[2021-05-05] MEDS: InsuLIN REG 1unit/0.01ml Soln (100units/ml) SC SCH ×3 (06:25→17:09)
[2021-05-05] MEDS: DOBUTamine 1000MCG/ML 250 ML IV SCH ×2 (08:22→09:03)
[2021-05-05 09:00] VITALS: BP 126/81
[2021-05-05] MEDS: FUROSEMIDE 40 MG/4 ML VIAL IV SCH (09:05)
[2021-05-05] MEDS: methylPREDNISolone SOD SUCC 40 MG/ML VL IV SCH (09:05)
[2021-05-05] MEDS: APIXABAN 2.5 MG TAB PO SCH ×2 (09:06→22:47)
[2021-05-05] MEDS: CARVEDILOL 3.125 MG TAB PO SCH ×2 (09:06→22:46)
[2021-05-05] MEDS ORDERED: DEXTROSE (50%) 50ML SYRG IV PRN (10:45)
[2021-05-05 13:00] VITALS: BP 123/64
[2021-05-05] MEDS ORDERED: InsuLIN REG 1unit/0.01ml Soln (100units/ml) SC ONE (14:30)
[2021-05-05 16:55] VITALS: BP 147/94
[2021-05-05 21:55] VITALS: BP 123/72
[2021-05-05] MEDS ORDERED: InsuLIN REG 1unit/0.01ml Soln (100units/ml) SC SCH (22:00)
[2021-05-05] MEDS ORDERED: INSULIN LANTUS (GLARGINE) 1 /0.01ml (100units/ml) SC SCH (22:00)
[2021-05-05] MEDS: ATORVASTATIN 20 MG TAB PO SCH (22:47)
[2021-05-06 05:00] VITALS: BP 129/69
[2021-05-06] MEDS: ACCU-CHEK COMFORT CURVE STRIP VI SCH (06:42)
[2021-05-06] MEDS: SODIUM CHLOR 0.9% PF (SALINE LOCK) 10ML VIAL/SYR IV SCH (06:42)
[2021-05-06] MEDS: InsuLIN REG 1unit/0.01ml Soln (100units/ml) SC SCH (06:53)
== END 2021-05-06 09:10 | disposition left against medical advice (07) | DRG 291 ==
LOC: ER 14:41 → EDBD 14:41 → TELE 22:08 → TELE-WESTW 05-02 01:34
PROVIDERS: ADMIT Nurse Practitioner Family; ATTEND Family Medicine
DX: I11.0 Hypertensive heart disease with heart failure (principal); I50.43 Acute on chronic combined systolic (congestive) and diastolic (congestive) heart failure; J96.20 Acute and chronic respiratory failure, unspecified whether with hypoxia or hypercapnia; J44.1 Chronic obstructive pulmonary disease with (acute) exacerbation; Z68.44 Body mass index [BMI] 60.0-69.9, adult; I42.0 Dilated cardiomyopathy; E66.01 Morbid (severe) obesity due to excess calories; E11.9 Type 2 diabetes mellitus without complications; F17.210 Nicotine dependence, cigarettes, uncomplicated; I48.91 Unspecified atrial fibrillation; Z20.822 Contact with and (suspected) exposure to COVID-19; Z53.29 Procedure and treatment not carried out because of patient's decision for other reasons; I25.2 Old myocardial infarction; Z95.810 Presence of automatic (implantable) cardiac defibrillator; Z89.411 Acquired absence of right great toe; Z91.14 Patient's other noncompliance with medication regimen; Z71.6 Tobacco abuse counseling
CPT/HCPCS: 36415; 71045; 80053; 80061; 81001; 82962; 83036; 83735; 83880; 84443; 84484; 85025; 85610; 85730; 87081; 87426; 93005; 93306; 96361; 96365; 96375; G0378; J1815; J3490; P9047

== ENCOUNTER 2021-05-20 01:08 | Inpatient (IN) | payer OTHER, MEDICAID ==
[~2021-05-20] VITALS: Ht 172.7 cm; Wt 150.4 kg
[~2021-05-20 01:08] MED LIST changes: +FURO40TA4 PO; +POTA-264
[2021-05-21] MEDS ORDERED: POTA-220 PO (02:15)
[2021-05-21] MEDS ORDERED: QUET200T4 PO (02:18)
[2021-05-21] MEDS ORDERED: SERT25TA84 PO (02:18)
[2021-05-21] MEDS ORDERED: CLOP75TA28 PO (02:18)
[2021-05-21] MEDS ORDERED: BUDE0.5S IN (02:19)
[2021-05-21] MEDS ORDERED: INSU100I44 SC (02:20)
[2021-05-21 05:00] VITALS: BP 117/76
[2021-05-21] MEDS ORDERED: MORPHINE SULFATE INJECTION 2 MG/ML SYRG IV PRN (06:30)
[2021-05-21] MEDS ORDERED: DOCUSATE SOD 100 MG CAP PO PRN (06:30)
[2021-05-21] MEDS ORDERED: ONDANSETRON HCL 4 MG/2 ML VIAL IV PRN (06:30)
[2021-05-21] MEDS ORDERED: VANCOMYCIN PER PHARMACY 0 MG IV SCH (06:30)
[2021-05-21] MEDS ORDERED: DEXTROSE (50%) 50ML SYRG IV PRN (06:30)
[2021-05-21] MEDS ORDERED: NITROGLYCERIN 0.4 MG SL TAB SL PRN (06:30)
[2021-05-21] MEDS: InsuLIN REG 1unit/0.01ml Soln (100units/ml) SC SCH ×4 (06:57→23:06)
[2021-05-21] MEDS: ACCU-CHEK COMFORT CURVE STRIP VI SCH ×4 (06:59→23:06)
[2021-05-21] MEDS: VANCOMYCIN 1GM/250ML 250 ML IV SCH ×3 (07:00→17:13)
[2021-05-21 07:28] LABS: Basophils # (auto) 0.1 10 ^3/uL (0-0.2); Eosinophils # (auto) 0.2 10 ^3/uL (0-0.8); Red Blood Cells 4.52 10^6/uL (4.5-5.90); Red Cell Distribution Width 17.7 % (11.8-14.3)
[2021-05-21 07:29] LABS: Basophils % (auto) 1.3 % (0.0-2.0); Eosinophils % (auto) 2.2 % (0.0-7.0); Hematocrit 37.2 % (41.0-53.0); Hemoglobin 12.1 g/dL (13.5-17.5); Lymphocytes % (auto) 13.6 % (10.0-50.0); Mean Corpuscular Hemoglobin 26.8 pg (28.0-32.0); Mean Corpuscular Hgb Conc. 32.5 g/dL (32.0-36.0); Mean Corpuscular Volume 82.3 fL (80.0-100.0); Monocytes # (auto) 0.9 10 ^3/uL (0-1.3); Monocytes % (auto) 11.9 % (0.0-12.0); Neutrophils # (auto) 5.3 10 ^3/uL (1.6-8.6); Nucleated Red Blood Cells % 0.1 %; White Blood Cell 7.4 10^3/uL (4.4-10.8)
[2021-05-21 07:43] LABS: Albumin 1.4 g/dL (3.4-5.0); Calcium 7.7 mg/dL (8.5-10.1); Potassium 4.9 mmol/L (3.5-5.1)
[2021-05-21 07:47] LABS: BUN/Creatinine Ratio 20.5; Bilirubin, Total 1.9 mg/dL (0.2-1.0); Total Protein 5.4 g/dL (6.4-8.2)
[2021-05-21 08:00] VITALS: BP 121/76
[2021-05-21 09:00] VITALS: BP 121/76
[2021-05-21 09:22] LABS: INR 1.28 (0.9-1.15); Partial Thromboplastin Time 32.3 sec (23.6-33.0)
[2021-05-21] MEDS: SERTRALINE HCL 50 MG TAB PO SCH (09:56)
[2021-05-21] MEDS: FUROSEMIDE 40 MG/4 ML VIAL IV SCH (09:57)
[2021-05-21] MEDS: FAMOTIDINE (10MG/ML) 2ML VL IV SCH ×2 (09:57→22:38)
[2021-05-21] MEDS: CARVEDILOL 3.125 MG TAB PO SCH ×2 (09:58→22:35)
[2021-05-21] MEDS ORDERED: APIXABAN 5 MG TAB PO SCH (10:00)
[2021-05-21] MEDS: SACUBITRIL-VALSARTAN 24mg/26mg TAB PO SCH ×2 (10:01→22:37)
[2021-05-21] MEDS: MORPHINE SULFATE INJECTION 2 MG/ML SYRG IV PRN ×2 (12:46→23:05)
[2021-05-21 13:00] VITALS: BP 132/59
[2021-05-21] MEDS ORDERED: ALBUTEROL SULF HFA 90MCG INH 200DOSE IN SCH (14:00)
[2021-05-21] MEDS: SODIUM CHLOR 0.9% PF (SALINE LOCK) 10ML VIAL/SYR IV SCH ×2 (14:00→23:10)
[2021-05-21 16:27] LABS: Urine WBC None Seen /hpf (0 - 3)
[2021-05-21 16:38] VITALS: BP 135/92
[2021-05-21 16:41] LABS: Urine Bacteria NONE SEEN /hpf (None Seen); Urine Blood 3+ /uL (Negative)
[2021-05-21 16:51] LABS: Protein, Urine 21.4 mg/dL (0.0-11.9)
[2021-05-21] MEDS: SPIRONOLACTONE 25 MG TAB PO SCH (17:48)
[2021-05-21 22:00] VITALS: BP 131/73
[2021-05-21] MEDS: APIXABAN 5 MG TAB PO SCH (22:36)
[2021-05-21] MEDS: ATORVASTATIN 20 MG TAB PO SCH (22:36)
[2021-05-22] MEDS: VANCOMYCIN 1GM/250ML 250 ML IV SCH ×3 (03:25→23:46)
[2021-05-22] MEDS: ACETAMINOPHEN 325 MG TAB PO PRN (04:03)
[2021-05-22 05:00] VITALS: BP 127/71
[2021-05-22] MEDS: SODIUM CHLOR 0.9% PF (SALINE LOCK) 10ML VIAL/SYR IV SCH ×3 (06:00→22:00)
[2021-05-22] MEDS: SPIRONOLACTONE 25 MG TAB PO SCH (06:38)
[2021-05-22] MEDS: ACCU-CHEK COMFORT CURVE STRIP VI SCH ×4 (06:40→22:00)
[2021-05-22] MEDS: InsuLIN REG 1unit/0.01ml Soln (100units/ml) SC SCH ×4 (06:40→23:37)
[2021-05-22 06:57] LABS: Basophils # (auto) 0.1 10 ^3/uL (0-0.2); Basophils % (auto) 0.9 % (0.0-2.0); Eosinophils # (auto) 0.1 10 ^3/uL (0-0.8); Eosinophils % (auto) 1.5 % (0.0-7.0); Hematocrit 37.7 % (41.0-53.0); Hemoglobin 12.2 g/dL (13.5-17.5); Lymphocytes # (auto) 0.8 10 ^3/uL (0.4-5.4); Lymphocytes % (auto) 9.4 % (10.0-50.0); Mean Corpuscular Hemoglobin 27.5 pg (28.0-32.0); Mean Corpuscular Hgb Conc. 32.4 g/dL (32.0-36.0); Mean Corpuscular Volume 84.8 fL (80.0-100.0); Monocytes # (auto) 1.1 10 ^3/uL (0-1.3); Monocytes % (auto) 12.5 % (0.0-12.0); Neutrophils # (auto) 6.6 10 ^3/uL (1.6-8.6); Neutrophils % (auto) 75.7 % (37.0-80.0); Nucleated Red Blood Cells % 0.3 %; Red Blood Cells 4.45 10^6/uL (4.5-5.90); Red Cell Distribution Width 18.5 % (11.8-14.3); White Blood Cell 8.7 10^3/uL (4.4-10.8)
[2021-05-22 07:36] LABS: Potassium 5.3 mmol/L (3.5-5.1)
[2021-05-22 07:52] LABS: Albumin 1.6 g/dL (3.4-5.0); Calcium 7.6 mg/dL (8.5-10.1); Total Protein 5.5 g/dL (6.4-8.2)
[2021-05-22 09:00] VITALS: BP 101/62
[2021-05-22] MEDS: FAMOTIDINE (10MG/ML) 2ML VL IV SCH ×2 (09:09→23:44)
[2021-05-22] MEDS: FUROSEMIDE 40 MG/4 ML VIAL IV SCH (09:09)
[2021-05-22] MEDS: APIXABAN 5 MG TAB PO SCH ×2 (09:10→23:45)
[2021-05-22] MEDS: CARVEDILOL 3.125 MG TAB PO SCH ×2 (09:10→23:45)
[2021-05-22] MEDS: SACUBITRIL-VALSARTAN 24mg/26mg TAB PO SCH ×2 (09:10→23:45)
[2021-05-22] MEDS: SERTRALINE HCL 50 MG TAB PO SCH (09:11)
[2021-05-22] MEDS: HYDROcodone-ACET 5/325MG TAB PO PRN ×2 (09:13→18:01)
[2021-05-22 13:13] VITALS: BP 119/69
[2021-05-22] MEDS: MORPHINE SULFATE INJECTION 2 MG/ML SYRG IV PRN (14:31)
[2021-05-22] MEDS ORDERED: DAKINS HALF STR 0.25% (NaHypochlorite) 473 ML TOPICAL SOL TOP ONE (15:45)
[2021-05-22 17:15] VITALS: BP 135/77
[2021-05-22 22:00] VITALS: BP 140/87
[2021-05-22] MEDS: ATORVASTATIN 20 MG TAB PO SCH (23:45)
[2021-05-23] MEDS: MORPHINE SULFATE INJECTION 2 MG/ML SYRG IV PRN (04:36)
[2021-05-23 05:41] VITALS: BP 136/67
[2021-05-23] MEDS: SODIUM CHLOR 0.9% PF (SALINE LOCK) 10ML VIAL/SYR IV SCH ×3 (06:19→22:20)
[2021-05-23] MEDS: ACCU-CHEK COMFORT CURVE STRIP VI SCH ×4 (06:50→22:21)
[2021-05-23] MEDS: InsuLIN REG 1unit/0.01ml Soln (100units/ml) SC SCH ×4 (06:59→22:22)
[2021-05-23 09:00] VITALS: BP 126/72
[2021-05-23] MEDS: APIXABAN 5 MG TAB PO SCH (10:00)
[2021-05-23] MEDS: VANCOMYCIN 1GM/250ML 250 ML IV SCH ×2 (10:16→18:00)
[2021-05-23] MEDS: FUROSEMIDE 40 MG/4 ML VIAL IV SCH (10:19)
[2021-05-23] MEDS: FAMOTIDINE (10MG/ML) 2ML VL IV SCH ×2 (10:19→22:20)
[2021-05-23] MEDS: CARVEDILOL 3.125 MG TAB PO SCH ×2 (10:20→22:21)
[2021-05-23] MEDS: SACUBITRIL-VALSARTAN 24mg/26mg TAB PO SCH ×2 (10:21→22:20)
[2021-05-23] MEDS: SERTRALINE HCL 50 MG TAB PO SCH (10:22)
[2021-05-23] MEDS: ACETAMINOPHEN 325 MG TAB PO PRN (10:28)
[2021-05-23 10:50] LABS: Basophils # (auto) 0.1 10 ^3/uL (0-0.2); Basophils % (auto) 1.1 % (0.0-2.0); Eosinophils # (auto) 0.1 10 ^3/uL (0-0.8); Eosinophils % (auto) 1.5 % (0.0-7.0); Hematocrit 36.9 % (41.0-53.0); Hemoglobin 12.2 g/dL (13.5-17.5); Lymphocytes % (auto) 10.8 % (10.0-50.0); Mean Corpuscular Hemoglobin 27.5 pg (28.0-32.0); Mean Corpuscular Hgb Conc. 33.1 g/dL (32.0-36.0); Mean Corpuscular Volume 83.2 fL (80.0-100.0); Monocytes # (auto) 1.5 10 ^3/uL (0-1.3); Monocytes % (auto) 16.9 % (0.0-12.0); Neutrophils # (auto) 6.4 10 ^3/uL (1.6-8.6); Neutrophils % (auto) 69.7 % (37.0-80.0); Nucleated Red Blood Cells % 0.1 %; Red Blood Cells 4.44 10^6/uL (4.5-5.90); Red Cell Distribution Width 18.3 % (11.8-14.3); White Blood Cell 9.1 10^3/uL (4.4-10.8)
[2021-05-23 11:08] LABS: Albumin 1.7 g/dL (3.4-5.0); Calcium 7.9 mg/dL (8.5-10.1)
[2021-05-23 11:12] LABS: BUN/Creatinine Ratio 17.6; Bilirubin, Total 2.5 mg/dL (0.2-1.0); Total Protein 6.2 g/dL (6.4-8.2)
[2021-05-23] MEDS ORDERED: CEFTRIAXONE SODIUM 2 GM in D5W 5% 50 ML IV ONE (12:00)
[2021-05-23 13:00] VITALS: BP 144/81
[2021-05-23 17:10] VITALS: BP 141/80
[2021-05-23 22:00] VITALS: BP 140/88
[2021-05-23] MEDS: ATORVASTATIN 20 MG TAB PO SCH (22:21)
[2021-05-24] MEDS: MORPHINE SULFATE INJECTION 2 MG/ML SYRG IV PRN ×2 (01:06→21:34)
[2021-05-24] MEDS: TEMAZEPAM 15 MG CAP PO PRN ×2 (01:06→21:34)
[2021-05-24 05:00] VITALS: BP 112/73
[2021-05-24] MEDS: SODIUM CHLOR 0.9% PF (SALINE LOCK) 10ML VIAL/SYR IV SCH ×3 (06:22→21:31)
[2021-05-24] MEDS: ACCU-CHEK COMFORT CURVE STRIP VI SCH ×4 (06:22→21:33)
[2021-05-24] MEDS: InsuLIN REG 1unit/0.01ml Soln (100units/ml) SC SCH ×4 (06:22→21:36)
[2021-05-24 06:51] LABS: Hematocrit 31.6 % (41.0-53.0); Hemoglobin 10.6 g/dL (13.5-17.5)
[2021-05-24] MEDS: VANCOMYCIN 1GM/250ML 250 ML IV SCH ×2 (07:07→16:41)
[2021-05-24 09:00] VITALS: BP 123/78
[2021-05-24] MEDS: SACUBITRIL-VALSARTAN 24mg/26mg TAB PO SCH ×3 (10:00→21:31)
[2021-05-24] MEDS: CARVEDILOL 3.125 MG TAB PO SCH ×3 (10:00→21:33)
[2021-05-24] MEDS: SERTRALINE HCL 50 MG TAB PO SCH ×2 (10:00→10:11)
[2021-05-24] MEDS: FUROSEMIDE 40 MG/4 ML VIAL IV SCH (10:09)
[2021-05-24] MEDS: FAMOTIDINE (10MG/ML) 2ML VL IV SCH ×2 (10:09→21:31)
[2021-05-24] MEDS: CEFTRIAXONE SODIUM 2 GM in D5W 5% 50 ML IV SCH (11:18)
[2021-05-24 13:00] VITALS: BP 143/87
[2021-05-24 17:00] VITALS: BP 143/98
[2021-05-24] MEDS: ATORVASTATIN 20 MG TAB PO SCH (21:31)
[2021-05-24 22:00] VITALS: BP 125/78
[2021-05-25] MEDS: VANCOMYCIN 1GM/250ML 250 ML IV SCH ×2 (02:41→03:00)
[2021-05-25 05:00] VITALS: BP 117/69
[2021-05-25] MEDS: SODIUM CHLOR 0.9% PF (SALINE LOCK) 10ML VIAL/SYR IV SCH ×3 (06:34→21:34)
[2021-05-25] MEDS: ACCU-CHEK COMFORT CURVE STRIP VI SCH ×4 (06:35→21:36)
[2021-05-25] MEDS: InsuLIN REG 1unit/0.01ml Soln (100units/ml) SC SCH ×4 (06:35→21:47)
[2021-05-25] MEDS: HYDROcodone-ACET 5/325MG TAB PO PRN (08:53)
[2021-05-25 09:00] VITALS: BP 125/63
[2021-05-25] MEDS: SACUBITRIL-VALSARTAN 24mg/26mg TAB PO SCH ×2 (09:31→21:36)
[2021-05-25] MEDS: CARVEDILOL 3.125 MG TAB PO SCH ×2 (09:32→21:35)
[2021-05-25] MEDS: CEFTRIAXONE SODIUM 2 GM in D5W 5% 50 ML IV SCH (10:00)
[2021-05-25] MEDS: FAMOTIDINE (10MG/ML) 2ML VL IV SCH ×2 (10:00→21:34)
[2021-05-25] MEDS: FUROSEMIDE 40 MG/4 ML VIAL IV SCH (10:00)
[2021-05-25 13:00] VITALS: BP 117/69
[2021-05-25] MEDS ORDERED: levoFLOXacin 250 MG TAB PO ONE (16:00)
[2021-05-25 17:00] VITALS: BP 120/56
[2021-05-25] MEDS: MORPHINE SULFATE INJECTION 2 MG/ML SYRG IV PRN (20:16)
[2021-05-25] MEDS: ATORVASTATIN 20 MG TAB PO SCH (21:36)
[2021-05-25 22:00] VITALS: BP 141/71
[2021-05-25] MEDS: ACETAMINOPHEN 325 MG TAB PO PRN (22:32)
[2021-05-26 05:00] VITALS: BP 101/58
[2021-05-26] MEDS: SODIUM CHLOR 0.9% PF (SALINE LOCK) 10ML VIAL/SYR IV SCH ×2 (05:19→14:23)
[2021-05-26] MEDS: InsuLIN REG 1unit/0.01ml Soln (100units/ml) SC SCH ×2 (06:22→12:04)
[2021-05-26] MEDS: ACCU-CHEK COMFORT CURVE STRIP VI SCH ×2 (06:22→12:04)
[2021-05-26] MEDS: MORPHINE SULFATE INJECTION 2 MG/ML SYRG IV PRN (06:40)
[2021-05-26] MEDS: ACETAMINOPHEN 325 MG TAB PO PRN (07:52)
[2021-05-26 09:00] VITALS: BP 131/82
[2021-05-26] MEDS ORDERED: levoFLOXacin 250 MG TAB PO SCH (10:00)
[2021-05-26] MEDS: FAMOTIDINE (10MG/ML) 2ML VL IV SCH (10:15)
[2021-05-26] MEDS: FUROSEMIDE 40 MG/4 ML VIAL IV SCH (10:15)
[2021-05-26] MEDS: SACUBITRIL-VALSARTAN 24mg/26mg TAB PO SCH (10:16)
[2021-05-26] MEDS: CARVEDILOL 3.125 MG TAB PO SCH (10:16)
[2021-05-26 13:00] VITALS: BP 119/76
== END 2021-05-26 15:16 | disposition hospice, home (50) | DRG 871 ==
LOC: TELE-WESTW 05-21 01:00
PROVIDERS: ADMIT Internal Medicine; ATTEND Internal Medicine
PROC: 2Y41X5Z Packing of Nasal Region using Packing Material (ICD-10-PCS; principal; 2021-05-23)
PROC: 05HB33Z Insertion of Infusion Device into Right Basilic Vein, Percutaneous Approach (ICD-10-PCS; 2021-05-25)
PROC: B54MZZA Ultrasonography of Right Upper Extremity Veins, Guidance (ICD-10-PCS; 2021-05-25)
DX: A41.02 Sepsis due to Methicillin resistant Staphylococcus aureus (principal); E43 Unspecified severe protein-calorie malnutrition; G93.41 Metabolic encephalopathy; I50.43 Acute on chronic combined systolic (congestive) and diastolic (congestive) heart failure; J18.9 Pneumonia, unspecified organism; I42.0 Dilated cardiomyopathy; N17.9 Acute kidney failure, unspecified; Z68.43 Body mass index [BMI] 50.0-59.9, adult; D68.59 Other primary thrombophilia; M86.8X7 Other osteomyelitis, ankle and foot; J44.0 Chronic obstructive pulmonary disease with (acute) lower respiratory infection; L03.90 Cellulitis, unspecified; L97.929 Non-pressure chronic ulcer of unspecified part of left lower leg with unspecified severity; E66.01 Morbid (severe) obesity due to excess calories; I48.0 Paroxysmal atrial fibrillation; F15.10 Other stimulant abuse, uncomplicated; M79.3 Panniculitis, unspecified; Z20.822 Contact with and (suspected) exposure to COVID-19; D64.9 Anemia, unspecified; E11.51 Type 2 diabetes mellitus with diabetic peripheral angiopathy without gangrene; E11.65 Type 2 diabetes mellitus with hyperglycemia; E78.5 Hyperlipidemia, unspecified; E11.69 Type 2 diabetes mellitus with other specified complication; F02.80 Dementia in other diseases classified elsewhere, unspecified severity, without behavioral disturbance, psychotic disturbance, mood disturbance, and anxiety; F17.210 Nicotine dependence, cigarettes, uncomplicated; F32.A Depression, unspecified; I11.0 Hypertensive heart disease with heart failure; J20.9 Acute bronchitis, unspecified; E87.5 Hyperkalemia; R04.0 Epistaxis; Z79.01 Long term (current) use of anticoagulants; Z79.4 Long term (current) use of insulin; I25.2 Old myocardial infarction; Z79.84 Long term (current) use of oral hypoglycemic drugs; Z82.0 Family history of epilepsy and other diseases of the nervous system; Z82.3 Family history of stroke; Z82.49 Family history of ischemic heart disease and other diseases of the circulatory system; Z95.810 Presence of automatic (implantable) cardiac defibrillator; Z83.3 Family history of diabetes mellitus; Z86.73 Personal history of transient ischemic attack (TIA), and cerebral infarction without residual deficits; Z89.411 Acquired absence of right great toe; Z91.14 Patient's other noncompliance with medication regimen
CPT/HCPCS: 36415; 70450; 71045; 73590; 73630; 73700; 74176; 80053; 80061; 80202; 81001; 82043; 82565; 82570; 82962; 83880; 84156; 85014; 85018; 85025; 85610; 85730; 87040; 87077; 87081; 87147; 87186; 87426; 93925; 93970; G0378; J0696; J1815; J3490; J7060